=== PATIENT | male | born 1930 | race Caucasian/White ===

== ENCOUNTER 2017-10-03 12:15 | Emergency (ER) | payer OTHER, MEDICARE ==
[2017-10-03 12:43] VITALS: BP 141/62
--- NOTE | 2017-10-03 13:00 | EDM.PDOC ---
ED HPI GENERAL MEDICAL PROBLEM - General Chief Complaint: Respiratory Problem Stated Complaint: FROM [facility] Time Seen by Provider: 10/03/17 12:45 Source of Information: Reports: Patient, Provider (from the [facility]) History Limitations: Reports: No Limitations - History of Present Illness INITIAL COMMENTS - FREE TEXT/NARRATIVE: This 86 yo male patient was sent to the ED by the [facility] provider due to increased shortness of breath with a possible exacerbation of COPD. The patient reports he started to have a cough 2 days ago which has gotten worse. The patient reports he normally has shortness of breath, but it has been getting worse over the past couple of days. The patient reports he took a breathing treatment while at home which improved his breathing for about 4 hours. The patient reports that he normally has antibiotics and steroids when his breathing gets bad. 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) - Related Data Allergies Allergy/AdvReac Type Severity Reaction Status Date / Time Iodinated Contrast- Oral and Allergy Cannot Verified 10/03/17 12:17 IV Dye Remember [Iodinated Contrast Media - Oral and] Home Meds: Home Meds Albuterol Sulfate [Proair Respiclick] 90 mcg IH BID PRN 06/26/15 [History] Ascorbic Acid [Vitamin C] 500 mg PO DAILY 06/26/15 [History] Aspirin 81 mg PO DAILY 06/26/15 [History] Budesonide/Formoterol [Symbicort 160-4.5 MCG] 2 inh INH BID 06/26/15 [History] Furosemide 80 mg PO DAILY 06/26/15 [History] Simvastatin [Zocor] 20 mg PO BEDTIME 06/26/15 [History] Tiotropium [Spiriva HandiHaler] 1 inh INH DAILY 06/26/15 [History] Albuterol/Ipratropium [DuoNeb 3.0-0.5 MG/3 ML] 1 vial INH QID 08/26/15 [History] Ibuprofen 200 mg PO ASDIRECTED 05/22/16 [History] Loratadine 10 mg PO DAILY 05/22/16 [History] Multivitamin [Multivitamins] 1 each PO DAILY 05/22/16 [History] Prednisone [IJD: Prednisone] 10 mg PO DAILY #20 tab 05/27/16 [Rx] Doxycycline [Vibramycin] 1 tab PO BID 03/19/17 [History] Past Medical History HEENT History: Reports: Cataract, Hard of Hearing Cardiovascular History: Reports: Heart Failure, Hypertension Respiratory History: Reports: COPD, Other (See Below) Other Respiratory History: pleural effusion Musculoskeletal History: Reports: Other (See Below) Other Musculoskeletal History: adiposity Oncologic (Cancer) History: Reports: Malignant Melanoma Dermatologic History: Reports: Other (See Below) Other Dermatologic History: malignant melanoma - Past Surgical History HEENT Surgical History: Reports: Cataract Surgery, Other (See Below) Cardiovascular Surgical History: Reports: None GI Surgical History: Reports: None Social & Family History - Family History Family Medical History: Noncontributory - Tobacco Use Smoking Status *Q: Unknown Ever Smoked Years of Tobacco use: 55 Packs/Tins Daily: 1 Used Tobacco, but Quit: Yes Month/Year Tobacco Last Used: jul 1994 Second Hand Smoke Exposure: No - Caffeine Use Caffeine Use: Reports: Coffee - Recreational Drug Use Recreational Drug Use: No ED ROS GENERAL - Review of Systems Review Of Systems: ROS reveals no pertinent complaints other than HPI. ED EXAM, GENERAL - Physical Exam Exam: See Below Exam Limited By: No Limitations General Appearance: Alert, WD/WN, Moderate Distress Eye Exam: Bilateral Eye: EOMI, Normal Inspection, PERRL Ears: Normal External Exam, Normal Canal, Hearing Grossly Normal, Normal TMs Nose: Normal Inspection, Normal Mucosa, No Blood Throat/Mouth: Normal Inspection, Normal Lips, Normal Teeth, Normal Gums, Normal Oropharynx, Normal Voice, No Airway Compromise Head: Atraumatic, Normocephalic Neck: Normal Inspection, Supple, Non-Tender, Full Range of Motion Respiratory/Chest: Rhonchi (diffuse), Wheezing Cardiovascular: Normal Peripheral Pulses, Regular Rate, Rhythm, No Edema, No Gallop, No JVD, No Murmur, No Rub GI/Abdominal: Normal Bowel Sounds, Soft, Non-Tender, No Organomegaly, No Distention, No Abnormal Bruit, No Mass (Male) Exam: Deferred Rectal (Males) Exam: Deferred Back Exam: Normal Inspection, Full Range of Motion, NT Extremities: Normal Inspection, Normal Range of Motion, Non-Tender, Normal Capillary Refill, No Pedal Edema Neurological: Alert, Oriented, CN II-XII Intact, Normal Cognition, Normal Gait, Normal Reflexes, No Motor/Sensory Deficits Psychiatric: Normal Affect, Normal Mood Skin Exam: Warm, Dry, Intact, Normal Color, No Rash Lymphatic: No Adenopathy Course - Vital Signs Last Recorded V/S: Last Vital Signs Temp 36.1 C 10/03/17 12:42 Pulse 57 L 10/03/17 13:48 Resp 20 10/03/17 12:42 BP 141/62 H 10/03/17 12:42 Pulse Ox 100 10/03/17 13:48 - Orders/Labs/Meds Orders: Active Orders 24 hr Category Date Time Status EKG Documentation Completion [RC] URGENT Care 10/03/17 12:32 Active RT Aerosol Therapy [RC] ASDIRECTED Care 10/03/17 13:48 Active Labs: Laboratory Tests 10/03/17 10/03/17 Range/Units 12:41 12:41 WBC 10.4 H (5.0-10.0) 10^3/uL RBC 4.63 (4.6-6.2) 10^6/uL Hgb 14.1 D (14.0-18.0) g/dL Hct 44.2 (40.0-54.0) % MCV 95.5 D (80-100) fL MCH 30.5 (27.0-34.0) pg MCHC 31.9 L (33.0-35.0) g/dL Plt Count 201 (150-450) 10^3/uL Neut % (Auto) 63.5 (42.2-75.2) % Lymph % (Auto) 16.8 L (20.5-50.1) % [place] % (Auto) 8.6 H (2-8) % Eos % (Auto) 10.0 H (1.0-3.0) % Baso % (Auto) 1.1 H (0.0-1.0) % Sodium 138 (135-145) mmol/L Potassium 4.5 (3.6-5.0) mmol/L Chloride 100 L (101-111) mmol/L Carbon Dioxide 32.0 H (21.0-31.0) mmol/L Anion Gap 10.5 BUN 15 (7-18) mg/dL Creatinine 1.4 H (0.6-1.3) mg/dL Est Cr Clr Drug Dosing 34.17 mL/min Estimated GFR (MDRD) 48 BUN/Creatinine Ratio 10.71 Glucose 116 H (74-105) mg/dL Calcium 8.9 (8.4-10.2) mg/dl Total Bilirubin 0.6 (0.2-1.0) mg/dL AST 22 (10-42) IU/L ALT 15 (10-60) IU/L Alkaline Phosphatase 49 (42-121) IU/L Troponin I < 0.02 (0.00-0.02) ng/ml Total Protein 6.4 L (6.7-8.2) g/dl Albumin 3.6 (3.2-5.5) g/dl Globulin 2.8 Albumin/Globulin Ratio 1.29 Meds: Medications Discontinued Medications Generic Name Dose Route Start Last Admin Trade Name Freq PRN Reason Stop Dose Admin Albuterol/Ipratropium 3 ml 10/03/17 13:48 10/03/17 13:53 Duoneb 3.0-0.5 Mg/3 Ml NEB 10/03/17 13:49 3 ml ONETIME ONE Administration - Re-Assessments/Exams Free Text/Narrative Re-Assessment/Exam: 10/03/17 14:24 The patient reports he continues to be on antibiotics and steroids for treatment of Exacerbation of COPD. The patient reports he took steroids and antibiotics today, but the patient reports his cough has been getting worse. Departure - Departure Time of Disposition: 14:26 Disposition: Home, Self-Care 01 Condition: Fair Clinical Impression: COPD exacerbation - Discharge Information Instructions: Chronic Obstructive Pulmonary Disease Exacerbation, [id number] Forms: ED Department Discharge Care Plan Goals: The patient was encouraged to continue to take his antibiotics, steroids and regular medications as prescribed. The patient was given a script for Tessalon Pearles (100 mg) #30 to take 1 by mouth 3 times per day as needed. If the patient has any additional symptoms or concerns, the patient should follow-up with his primary care facility or return to the emergency department. - My Orders Last 24 Hours: My Active Orders 10/03/17 12:32 EKG Documentation Completion [RC] URGENT 10/03/17 13:48 RT Aerosol Therapy [RC] ASDIRECTED - Assessment/Plan Last 24 Hours: My Active Orders 10/03/17 12:32 EKG Documentation Completion [RC] URGENT 10/03/17 13:48 RT Aerosol Therapy [RC] ASDIRECTED
[2017-10-03 13:07] LABS: CHLORIDE,CL 100 mmol/L (101-111); SODIUM,NA 138 mmol/L (135-145)
[2017-10-03] MEDS ORDERED: Albuterol/Ipratropium 3.0-0.5 MG/3 ML Neb Soln NEB ONE (13:48)
== END 2017-10-03 14:38 | disposition home or self-care (01) ==
LOC: DL.ED 12:15
DX: J44.1 Chronic obstructive pulmonary disease with (acute) exacerbation (principal); Z91.041 Radiographic dye allergy status; Z79.899 Other long term (current) drug therapy; Z79.82 Long term (current) use of aspirin; Z87.891 Personal history of nicotine dependence
CPT/HCPCS: 36415; 71046; 80053; 84484; 85025; 93005; 93010; 94640; 99285

== ENCOUNTER 2018-10-08 11:29 | Inpatient (IN) | payer OTHER, MEDICARE ==
--- NOTE | 2018-10-08 11:46 | EDM.PDOC ---
ED HPI GENERAL MEDICAL PROBLEM - General Stated Complaint: UNKNOWN-AMBULANCE Time Seen by Provider: 10/08/18 11:45 Source of Information: Reports: [facility], [facility] History Limitations: Reports: No Limitations - History of Present Illness INITIAL COMMENTS - FREE TEXT/NARRATIVE: This 87 yo male patient [facility] to increased shortness of breath with a history of COPD. The patient reports he has noticed increased difficulties breathing over the past 2 days. The patient reports [facility] after some results were received. The patient reports he has not had a breathing treatment since yesterday. Onset Date: 10/07/18 Duration: Constant Location: Reports: Chest Quality: Reports: Other Severity: Moderate Improves with: Reports: None Worsens with: Reports: None Associated Symptoms: Reports: Shortness of Breath - Related Data Allergies Allergy/AdvReac Type Severity Reaction Status Date / Time Iodinated Contrast- Oral and Allergy Cannot Verified 10/08/18 11:38 IV Dye Remember [Iodinated Contrast Media - Oral and] Home Meds: Home Meds Albuterol Sulfate [Proair Respiclick] 90 mcg IH BID PRN 06/26/15 [History] Ascorbic Acid [Vitamin C] 500 mg PO DAILY 06/26/15 [History] Aspirin 81 mg PO DAILY 06/26/15 [History] Budesonide/Formoterol [Symbicort 160-4.5 MCG] 2 inh INH BID 06/26/15 [History] Furosemide 80 mg PO DAILY 06/26/15 [History] Simvastatin [Zocor] 20 mg PO BEDTIME 06/26/15 [History] Tiotropium [Spiriva HandiHaler] 1 inh INH DAILY 06/26/15 [History] Albuterol/Ipratropium [DuoNeb 3.0-0.5 MG/3 ML] 1 vial INH QID 08/26/15 [History] Ibuprofen 200 mg PO ASDIRECTED 05/22/16 [History] Loratadine 10 mg PO DAILY 05/22/16 [History] Multivitamin [Multivitamins] 1 each PO DAILY 05/22/16 [History] Prednisone [IJD: Prednisone] 10 mg PO DAILY #20 tab 05/27/16 [Rx] Doxycycline [Vibramycin] 1 tab PO BID 03/19/17 [History] Past Medical History HEENT History: Reports: Cataract, Hard of Hearing Cardiovascular History: Reports: Heart Failure, Hypertension Respiratory History: Reports: COPD, Other (See Below) Other Respiratory History: pleural effusion Musculoskeletal History: Reports: Other (See Below) Other Musculoskeletal History: adiposity Neurological History: Reports: None Psychiatric History: Reports: None Endocrine/Metabolic History: Reports: Diabetes, Type I, Diabetes, Type II Hematologic History: Reports: None Immunologic History: Reports: None Oncologic (Cancer) History: Reports: Malignant Melanoma Dermatologic History: Reports: Other (See Below) Other Dermatologic History: malignant melanoma - Infectious Disease History Infectious Disease History: Reports: None - Past Surgical History Head Surgeries/Procedures: Reports: None HEENT Surgical History: Reports: Cataract Surgery, Other (See Below) Cardiovascular Surgical History: Reports: None GI Surgical History: Reports: None Social & Family History - Family History Family Medical History: Noncontributory - Tobacco Use Smoking Status *Q: Unknown Ever Smoked - Caffeine Use Caffeine Use: Reports: None - Recreational Drug Use Recreational Drug Use: No ED ROS GENERAL - Review of Systems Review Of Systems: ROS reveals no pertinent complaints other than HPI. ED EXAM, GENERAL - Physical Exam Exam: See Below Exam Limited By: No Limitations General Appearance: Alert, WD/WN, Moderate Distress Eye Exam: Bilateral Eye: EOMI, Normal Inspection, PERRL Ears: Normal External Exam, Normal Canal, Hearing Grossly Normal, Normal TMs Nose: Normal Inspection, Normal Mucosa, No Blood Throat/Mouth: Normal Inspection, Normal Lips, Normal Teeth, Normal Gums, Normal Oropharynx, Normal Voice, No Airway Compromise Head: Atraumatic, Normocephalic Neck: Normal Inspection, Supple, Non-Tender, Full Range of Motion Respiratory/Chest: Decreased Breath Sounds, Rhonchi Cardiovascular: Normal Peripheral Pulses, Regular Rate, Rhythm, No Edema, No Gallop, No JVD, No Murmur, No Rub GI/Abdominal: Normal Bowel Sounds, Soft, Non-Tender, No Organomegaly, No Distention, No Abnormal Bruit, No Mass (Male) Exam: Deferred Rectal (Males) Exam: Deferred Back Exam: Normal Inspection, Full Range of Motion, NT Extremities: Pedal Edema Neurological: Alert, Oriented, CN II-XII Intact, Normal Cognition Psychiatric: Normal Affect, Normal Mood Skin Exam: Warm, Dry, Intact, Normal Color, No Rash Lymphatic: No Adenopathy Course - Vital Signs Last Recorded V/S: Last Vital Signs Temp 36.1 C 10/08/18 11:35 Pulse 80 10/08/18 11:35 Resp 20 10/08/18 11:35 BP 114/56 L 10/08/18 11:35 Pulse Ox 96 10/08/18 11:55 - Orders/Labs/Meds Orders: Active Orders 24 hr Category Date Time Status EKG Documentation Completion [RC] URGENT Care 10/08/18 11:33 Active EKG Documentation Completion [RC] URGENT Care 10/08/18 12:43 Active RT Aerosol Therapy [RC] ASDIRECTED Care 10/08/18 11:55 Active Chest 2V [CR] Urgent Exams 10/08/18 11:33 Stop Req CULTURE BLOOD [BC] Stat Lab 10/08/18 11:44 Received Azithromycin [Zithromax] 500 mg Med 10/08/18 13:05 Ordered Sodium Chloride 0.9% [Normal Saline] 250 ml IV ONETIME cefTRIAXone [Rocephin] 1 gm Med 10/08/18 13:05 Ordered Sodium Chloride 0.9% [Normal Saline] 50 ml IV ONETIME Medication Orders Azithromycin 500 mg/ Sodium (Chloride) 250 mls @ 250 mls/hr IV ONETIME ONE Stop: 10/08/18 14:04 Ceftriaxone Sodium 1 gm/ (Sodium Chloride) 50 mls @ 50 mls/hr IV ONETIME ONE Stop: 10/08/18 14:04 Labs: Laboratory Tests 10/08/18 10/08/18 10/08/18 Range/Units 11:44 11:44 11:44 WBC 15.8 H (5.0-10.0) 10^3/uL RBC 5.00 (4.6-6.2) 10^6/uL Hgb 14.5 (14.0-18.0) g/dL Hct 45.2 (40.0-54.0) % MCV 90.4 (80-100) fL MCH 29.0 (27.0-34.0) pg MCHC 32.1 L (33.0-35.0) g/dL Plt Count 218 (150-450) 10^3/uL Neut % (Auto) 79.3 H (42.2-75.2) % Lymph % (Auto) 10.1 L (20.5-50.1) % [place] % (Auto) 9.8 H (2-8) % Eos % (Auto) 0.4 L (1.0-3.0) % Baso % (Auto) 0.4 (0.0-1.0) % Sodium 137 (135-145) mmol/L Potassium 3.4 L (3.6-5.0) mmol/L Chloride 99 L (101-111) mmol/L Carbon Dioxide 24.0 (21.0-31.0) mmol/L Anion Gap 17.4 BUN 22 H (7-18) mg/dL Creatinine 1.3 (0.6-1.3) mg/dL Est Cr Clr Drug Dosing 36.14 mL/min Estimated GFR (MDRD) 52 BUN/Creatinine Ratio 16.92 Glucose 121 H (74-105) mg/dL Lactic Acid 1.5 (0.5-2.2) mmol/L Calcium 8.0 L (8.4-10.2) mg/dl Total Bilirubin 0.8 (0.2-1.0) mg/dL AST 19 (10-42) IU/L ALT 16 (10-60) IU/L Alkaline Phosphatase 52 (42-121) IU/L Troponin I < 0.02 (0.00-0.02) ng/ml B-Natriuretic Peptide 80 (0-100) pg/ml Total Protein 6.7 (6.7-8.2) g/dl Albumin 3.4 (3.2-5.5) g/dl Globulin 3.3 Albumin/Globulin Ratio 1.03 Meds: Medications Generic Name Dose Route Start Last Admin Trade Name Freq PRN Reason Stop Dose Admin Azithromycin 500 mg/ Sodium 250 mls @ 250 mls/hr 10/08/18 13:05 Chloride IV 10/08/18 14:04 ONETIME ONE Ceftriaxone Sodium 1 gm/ 50 mls @ 50 mls/hr 10/08/18 13:05 Sodium Chloride IV 10/08/18 14:04 ONETIME ONE Discontinued Medications Generic Name Dose Route Start Last Admin Trade Name Freq PRN Reason Stop Dose Admin Albuterol/Ipratropium 3 ml 10/08/18 11:55 10/08/18 12:18 Duoneb 3.0-0.5 Mg/3 Ml NEB 10/08/18 11:56 3 ml ONETIME ONE Administration Diltiazem HCl 10 mg 10/08/18 13:05 Diltiazem IVPUSH 10/08/18 13:06 ONETIME ONE Departure - Departure Time of Disposition: 13:07 Disposition: Admitted As Inpatient 68 Condition: Fair Clinical Impression: Atrial fibrillation with RVR Pneumonia Qualifiers: Pneumonia type: due to unspecified organism Laterality: right Lung location: lower lobe of lung Qualified Code(s): J18.1 - Lobar pneumonia, unspecified organism - Discharge Information *PRESCRIPTION DRUG MONITORING PROGRAM REVIEWED*: Not Applicable *COPY OF PRESCRIPTION DRUG MONITORING REPORT IN PATIENT FARRUKH: Not Applicable Care Plan Goals: Discussed the patient's history, examination, lab, EKG, repeat EKG and x-ray results with Dr. Tejada. Dr. Tejada accepted the patient for continued evaluation and further management as an inpatient at [facility]. The patient was given an IV dose of Cardizem (10 mg), IV Rocephin and IV Azithromycin while in the ED. - My Orders Last 24 Hours: My Active Orders 10/08/18 11:33 EKG Documentation Completion [RC] URGENT Chest 2V [CR] Urgent 10/08/18 11:44 CULTURE BLOOD [BC] Stat 10/08/18 11:55 RT Aerosol Therapy [RC] ASDIRECTED 10/08/18 12:43 EKG Documentation Completion [RC] URGENT 10/08/18 13:05 Azithromycin [Zithromax] 500 mg Sodium Chloride 0.9% [Normal Saline] 250 ml IV ONETIME cefTRIAXone [Rocephin] 1 gm Sodium Chloride 0.9% [Normal Saline] 50 ml IV ONETIME - Assessment/Plan Last 24 Hours: My Active Orders 10/08/18 11:33 EKG Documentation Completion [RC] URGENT Chest 2V [CR] Urgent 10/08/18 11:44 CULTURE BLOOD [BC] Stat 10/08/18 11:55 RT Aerosol Therapy [RC] ASDIRECTED 10/08/18 12:43 EKG Documentation Completion [RC] URGENT 10/08/18 13:05 Azithromycin [Zithromax] 500 mg Sodium Chloride 0.9% [Normal Saline] 250 ml IV ONETIME cefTRIAXone [Rocephin] 1 gm Sodium Chloride 0.9% [Normal Saline] 50 ml IV ONETIME
[2018-10-08] MEDS ORDERED: Albuterol/Ipratropium 3.0-0.5 MG/3 ML Neb Soln NEB ONE (11:55)
[2018-10-08 12:12] LABS: ANION GAP 17.4; CHLORIDE,CL 99 mmol/L (101-111); SODIUM,NA 137 mmol/L (135-145)
[2018-10-08] MEDS ORDERED: Diltiazem 25 MG/5 ML SDV IVPUSH ONE ×2 (13:05→19:52)
[2018-10-08] MEDS ORDERED: cefTRIAXone 1 GM in Sodium Chloride 0.9% 50 ML IV ONE (13:05)
[2018-10-08] MEDS ORDERED: Azithromycin 500 MG in Sodium Chloride 0.9% 250 ML IV ONE (13:05)
[2018-10-08] MEDS ORDERED: Acetaminophen 325 MG Tab PO PRN (15:21)
[2018-10-08] MEDS ORDERED: Magnesium Hydroxide 400 MG/5 ML Susp 30 ML Cup PO PRN (15:21)
[2018-10-08] MEDS ORDERED: Docusate Sodium 100 MG Cap PO PRN (15:21)
[2018-10-08] MEDS ORDERED: Ondansetron 4 MG Tab.DIS PO PRN (15:21)
[2018-10-08] MEDS ORDERED: Ondansetron 4 MG/2 ML SDV IVPUSH PRN (15:21)
[2018-10-08] MEDS ORDERED: Non-Formulary Medication 1 Each (Docusate Sodium [Colace] 50 MG) PO PRN (15:29)
[2018-10-08] MEDS ORDERED: Albuterol 6.7 GM Inhaler INH PRN (15:29)
[2018-10-08] MEDS ORDERED: IPRATROPIUM PRN (15:29)
[2018-10-08] MEDS ORDERED: 50% Dextrose in Water 50 ML Syringe IVPUSH PRN (15:59)
[2018-10-08] MEDS ORDERED: Albuterol/Ipratropium 3.0-0.5 MG/3 ML Neb Soln INH PRN ×2 (16:00→16:30)
[2018-10-08] MEDS ORDERED: Insulin Lispro 100 Units/ML 3 ML Vial SUBCUT SCH (17:00)
[2018-10-08] MEDS ORDERED: CROMOLYN SODIUM OP SCH (17:00)
[2018-10-08] MEDS: Furosemide 40 MG/4 ML VIAL IVPUSH SCH (17:12)
[2018-10-08] MEDS: Diltiazem 120 MG Cap.CD PO SCH (17:13)
[2018-10-08] MEDS: Budesonide 0.5 MG/2 ML Neb Susp NEB SCH (18:03)
[2018-10-08] MEDS: Diltiazem 100 MG in Sodium Chloride 0.9% 100 ML IV SCH (18:45)
[2018-10-08] MEDS ORDERED: Simvastatin 40 MG Tab PO SCH (21:00)
[2018-10-08] MEDS ORDERED: Melatonin 3 MG Tab PO SCH (21:00)
[2018-10-08] MEDS ORDERED: diphenhydrAMINE 25 MG Tab PO PRN (21:00)
[2018-10-08] MEDS: Insulin Glarg,Human.Rec.Analog 100 UNIT/ML ML SUBCUT SCH (21:05)
[2018-10-08] MEDS: Enoxaparin 40 MG/0.4 ML Syringe SUBCUT SCH (21:07)
[2018-10-08] MEDS: methylPREDNISolone Sodium Succinate 40 MG/1 ML SDV IVPUSH SCH (22:07)
--- NOTE | 2018-10-08 22:07 | HP ---
CHIEF COMPLAINT: Increasing shortness of breath. HISTORY OF PRESENTING ILLNESS: Mr. Yono Soares is an 87-year-old male with a medical history significant for hypertension, hyperlipidemia, type 2 diabetes mellitus, chronic obstructive pulmonary disease, history of emphysema, history of tobacco use in the remote past and quit smoking for the last several years, history of chronic congestive heart failure with diastolic dysfunction, presented to the ER with complaints of increasing shortness of breath. He was initially evaluated in the clinic and was called back to the ER as he was noted to have abnormal labs. At this time, the patient claims that he has been having shortness of breath for the last 1 week to 10 days, which has been progressively getting worse. He grades the shortness of breath as 7 to 8/10 in intensity, which gets aggravated on ambulation and exertion, relieved with rest. Not associated with any chest pain. Complains of having cough with sputum production which is brownish yellow in color. Denied any fevers or chills at home. No complaints of abdominal pain. No complaints of nausea, vomiting, or diarrhea in the last few days. He also noticed some 2-pillow orthopnea in the last few days. The patient denied any history of chest pains on exertion in the past, no history of dyspnea on exertion in the past except for this last 10 days. The patient denied any history of hematemesis, hematochezia, or melenic stools. Normal bowel and bladder habits otherwise. REVIEW OF SYSTEMS: A complete review of system including skin, ear, nose, and throat, cardiovascular system, respiratory system, gastrointestinal system, genitourinary system, hematology, oncology, neurology, allergy, immunology, constitutional were all evaluated and were negative except for the above-said notes. PAST MEDICAL HISTORY: Significant for: 1. Hypertension. 2. Hyperlipidemia. 3. Type 2 diabetes mellitus. 4. Chronic congestive heart failure with diastolic dysfunction. 5. COPD. 6. History of alcohol use in the remote past. 7. History of tobacco use in the remote past. PAST SURGICAL HISTORY: Significant for cyst removal and cataract surgery. FAMILY HISTORY: Significant for diabetes in his brothers and sisters. Both the parents diseased. SOCIAL HISTORY: Former smoker. History of tobacco use in the past, quit smoking many years back. History of alcohol use in the past, quit drinking alcohol many years back. ALLERGIES: Noted to have allergies to iodinated study contrast dyes. HOME MEDICATIONS: 1. Metformin 500 mg daily. 2. Guaifenesin 200 mg 3 times a day. 3. Benadryl 25 mg at bedtime as needed. 4. Spiriva 2 puffs inhalation daily. 5. Zocor 20 mg at bedtime. 6. Prednisone 5 mg daily. 7. Multivitamin 1 tablet daily. 8. Melatonin 6 mg at night. 9. Atrovent nebulizer inhalation twice a day as needed. 10.Lasix 40 mg daily. 11.Aspirin 81 mg daily. 12.Symbicort 2-puff inhalation twice a day. 13.Vitamin C 500 mg daily. 14.DuoNeb inhalation every 4 hours as needed. PHYSICAL EXAMINATION: VITAL SIGNS: Temperature 97, pulse of 76, blood pressure 114/56, respiratory rate of 20, and saturating at 96% on 2 L of oxygen. General Appearance: The patient is well oriented to time, place, and person. Follows commands spontaneously. Cardiovascular System: S1, S2 heard with normal intensity. No gallops. Respiratory System: Bilateral wheeze and crepitations noted. Abdomen: Soft. Bowel sounds positive. Nontender. No rigidity. Extremities: 2+ pitting edema noted, bilateral lower extremities. Neurologic: No gross focal neurological deficit. LABORATORY DATA: WBC 15.8, hemoglobin 14.5, hematocrit 45.2, platelet count 218. Sodium 137, potassium 3.4, chloride 99, bicarb 24, BUN 17, creatinine 1.3, glucose 121, AST 19, ALT 16, alkaline phosphatase 52. Troponin less than 0.02. B-natriuretic peptide 80. Chest x-ray done at the clinic shows evidence of pulmonary venous congestion along with a possible pneumonia. ASSESSMENT: 1. Pneumonia. 2. Acute chronic obstructive pulmonary disease exacerbation. 3. Acute on chronic congestive heart failure with diastolic dysfunction. 4. Hypertension. 5. Hyperlipidemia. 6. Type 2 diabetes mellitus. 7. Obesity. PLAN: 1. Pneumonia. The patient noted to have cough with sputum which is brownish yellow in color, which has been going on for the last few days. We will obtain sputum cultures and blood cultures. We will start him on antibiotics ceftriaxone and Zithromax, and we will closely follow. 2. Acute COPD exacerbation. He is noted to have wheeze and crepitations bilaterally. We will have him on nebulizer with DuoNeb and Pulmicort nebulizer. We will start him on IV methylprednisone. We will encourage the patient to use incentive spirometer and flutter valve for better pulmonary toileting. 3. Acute on chronic respiratory failure. The patient noted to be on nasal cannula oxygen. Continue the same. Try to maintain saturations around 95%. 4. Acute CHF exacerbation. The patient was noted to have diastolic dysfunction. We do not have any recent echocardiogram, so we will order for an echocardiogram at this time. We will have him on Lasix 40 mg IV q.12 hourly. We will get a BNP at this time. Closely monitor input, output, and daily weights. 5. Hypertension. His blood pressure seems to be in acceptable range. Try to avoid any hypotensive episodes. Maintain euvolemic status. 6. Type 2 diabetes mellitus. Patient is on metformin. We will hold the metformin while in the hospital. Check his fingersticks with each meals. Since we are going to put him on steroids, his blood sugars will be uncontrolled, so we will have him on Lantus and Humalog as needed for sliding scale. Closely follow. 7. DVT prophylaxis. We will have him on Lovenox for DVT prophylaxis. 8. Atrial fibrillation. The patient was noted to be in atrial fibrillation with rapid ventricular response. While in the ER, he received IV Cardizem 10 mg bolus. Given his hypertension, diabetes, and age, his CHADS-Vasc score is greater than 2, an indication for anticoagulation at this time. After having detailed discussion with the patient, the patient would like to hold off any anticoagulation for now. We will re-visit the patient regarding anticoagulation. As he is at high risk for cerebrovascular accident, it is important to have a secondary prevention at this time. We will continue with aspirin for now. 9. Code status, the patient wants to be DNR/DNI. 10.Discussed with Lucio Antonio, ER staff, regarding the plan of care. Reviewed the labs and medications. Reviewed the old charts. [facility] /[id number]
[2018-10-08] MEDS ORDERED: Albuterol/Ipratropium 3.0-0.5 MG/3 ML Neb Soln NEB PRN (23:01)
[2018-10-09] MEDS ORDERED: Sodium Chloride 0.9% 250 ML IV SCH (01:30)
[2018-10-09] MEDS: Digoxin 500 MCG/2 ML Amp IVPUSH SCH ×2 (01:31→07:35)
[2018-10-09] MEDS: methylPREDNISolone Sodium Succinate 40 MG/1 ML SDV IVPUSH SCH ×2 (05:56→15:25)
[2018-10-09 06:27] LABS: ANION GAP 15.3
[2018-10-09] MEDS: Albuterol/Ipratropium 3.0-0.5 MG/3 ML Neb Soln NEB SCH (06:58)
[2018-10-09] MEDS: Furosemide 40 MG/4 ML VIAL IVPUSH SCH ×2 (07:35→15:25)
[2018-10-09] MEDS: Budesonide 0.5 MG/2 ML Neb Susp NEB SCH (07:59)
[2018-10-09] MEDS: Enoxaparin 40 MG/0.4 ML Syringe SUBCUT SCH (08:37)
[2018-10-09] MEDS: Diltiazem 120 MG Cap.CD PO SCH (08:38)
[2018-10-09] MEDS: Insulin Glarg,Human.Rec.Analog 100 UNIT/ML ML SUBCUT SCH (08:43)
[2018-10-09] MEDS ORDERED: Finasteride 5 MG Tab PO SCH (09:00)
[2018-10-09] MEDS ORDERED: Multivitamins,Therapeutic Tab PO SCH (09:00)
[2018-10-09] MEDS ORDERED: Loratadine 10 MG Tab PO SCH (09:00)
[2018-10-09] MEDS ORDERED: Aspirin 81 MG Tab.Chew PO SCH (09:00)
[2018-10-09] MEDS ORDERED: Enoxaparin 40 MG/0.4 ML Syringe SUBCUT SCH (09:00)
[2018-10-09] MEDS ORDERED: Tiotropium Inhaler 18 MCG Inhalation Powder Cap Kit of 5 INH SCH (09:00)
[2018-10-09] MEDS ORDERED: Aspirin 81 MG Tab.EC PO SCH (09:00)
[2018-10-09] MEDS ORDERED: Ascorbic Acid 500 MG Tab PO SCH (09:00)
[2018-10-09] MEDS ORDERED: cefTRIAXone 1 GM in Sodium Chloride 0.9% 50 ML IV SCH (12:00)
[2018-10-09] MEDS ORDERED: Azithromycin 500 MG in Sodium Chloride 0.9% 250 ML IV SCH (13:00)
[2018-10-09] MEDS: Diltiazem 100 MG in Sodium Chloride 0.9% 100 ML IV SCH (14:27)
[2018-10-09 15:43] VITALS: BP 133/57
--- NOTE | 2018-10-09 18:33 | DISCH ---
Discharged to [facility] for continued cares. ADMITTING DIAGNOSES: 1. Atrial fibrillation with rapid ventricular response. 2. Acute on chronic congestive heart failure. 3. Acute chronic obstructive pulmonary disease exacerbation. 4. Acute on chronic respiratory failure with hypoxia. 5. Pneumonia. DISCHARGE DIAGNOSES: 1. Pneumonia, on currently IV antibiotics. 2. Acute chronic obstructive pulmonary disease exacerbation, improved with nebulizer treatment and IV methylprednisolone. 3. Acute on chronic congestive heart failure, improved with IV Lasix, most probably diastolic dysfunction with ejection fraction of 50% to 55% as per echocardiogram. 4. Acute on chronic hypoxic respiratory failure, stable on nasal cannula oxygen. 5. Hypertension. HISTORY OF PRESENT ILLNESS: Mr. Rodger Nettles is an 87-year-old male with a medical history significant for hypertension, hyperlipidemia, type 2 diabetes mellitus, chronic obstructive pulmonary disease with emphysema, tobacco use, presented to the ER with complaints of increasing shortness of breath and was noted to be in acute congestive heart failure exacerbation with atrial fibrillation with rapid ventricular response, acute COPD exacerbation, and underlying pneumonia. The patient was started on IV antibiotics as well as nebulizer treatment and IV methylprednisone and was started on IV Cardizem drip. Overnight, the patient continues to be in atrial fibrillation with rapid ventricular response. He received IV digoxin, after which his rate is well controlled. His blood pressure is much improved. The patient is a [facility] patient, so the patient is being transferred to [facility] for continued cares and for further monitoring and dose adjustment of his medications. He remained hemodynamically stable on this admission. DISCHARGE MEDICATIONS: Include: 1. Tylenol 650 every 4 hours as needed for pain. 2. DuoNeb 3 mL nebulizer every 6 hours. 3. Vitamin C 500 mg daily. 4. Aspirin 81 mg daily. 5. Ceftriaxone 1 g IV daily. 6. Zithromax 500 mg IV daily. 7. Pulmicort 0.5 mg nebulizer twice a day. 8. Diltiazem 120 mg oral daily. 9. Diphenhydramine 25 mg at bedtime as needed. 10.Docusate sodium 100 mg twice a day as needed for constipation. 11.Proscar 5 mg daily. 12.Lasix 40 mg IV q.12 hourly. 13.Guaifenesin 200 mg 3 times a day. 14.Lantus 15 units subcutaneous daily. 15.Milk of magnesia every 12 hours as needed. 16.Melatonin 6 mg at bedtime. 17.IV methylprednisolone 60 mg IV q.8 hourly. 18.Simvastatin 20 mg at bedtime. 19.Spiriva 18 mcg inhalation daily. PHYSICAL EXAMINATION: On the day of discharge: Vital Signs: Temperature of 97.8, pulse of 65, blood pressure of 126/61, respiratory rate of 20, saturating 98% on 3 L of oxygen. General Appearance: The patient is well oriented to time, place, and person. Follows commands spontaneously. Cardiovascular System: S1 and S2 heard with normal intensity. No gallops. Respiratory System: Bilateral wheeze with minimal crepitations at the bases. Abdomen: Soft. Bowel sounds positive. Nontender. No rigidity. Extremities: Edema noted in bilateral lower extremities, 2+. LABORATORY DATA: 2D echocardiogram done on this admission shows an ejection fraction of 50% to 55%. Right ventricle is not well visualized. Mild mitral regurgitation. Doppler findings do not suggest pulmonary hypertension. Mild tricuspid regurgitation. Sclerotic aortic valve. CONDITION ON ADMISSION: Poor. CONDITION ON DISCHARGE: Stable. DISPOSITION: Discharged to [facility] for continued cares. ACTIVITY: As tolerated. DIET: Cardiac healthy diet with consistent carbohydrate diet. Spent over 35 minutes of time in evaluating and treating this patient and making discharge plan. [facility] /[id number]
[2018-10-09] MEDS ORDERED: Albuterol/Ipratropium 3.0-0.5 MG/3 ML Neb Soln NEB SCH (21:00)
== END 2018-10-09 16:16 | DRG 291 ==
LOC: DL.ED 11:29 → UNDOADMIN 14:16 → DL.MS 14:16
PROVIDERS: ADMIT Internal Medicine; ATTEND Internal Medicine
DX: I11.0 Hypertensive heart disease with heart failure (principal); J18.1 Lobar pneumonia, unspecified organism; J96.01 Acute respiratory failure with hypoxia; J44.1 Chronic obstructive pulmonary disease with (acute) exacerbation; J44.0 Chronic obstructive pulmonary disease with (acute) lower respiratory infection; I50.33 Acute on chronic diastolic (congestive) heart failure; Z66 Do not resuscitate; E78.5 Hyperlipidemia, unspecified; E11.9 Type 2 diabetes mellitus without complications; I48.91 Unspecified atrial fibrillation; H91.90 Unspecified hearing loss, unspecified ear; E66.9 Obesity, unspecified; Z91.041 Radiographic dye allergy status; Z79.52 Long term (current) use of systemic steroids; Z98.49 Cataract extraction status, unspecified eye; Z87.891 Personal history of nicotine dependence; Z79.84 Long term (current) use of oral hypoglycemic drugs; Z79.82 Long term (current) use of aspirin; Z79.899 Other long term (current) drug therapy; Z85.820 Personal history of malignant melanoma of skin; Z68.33 Body mass index [BMI] 33.0-33.9, adult
CPT/HCPCS: 36415; 80048; 80053; 82962; 83605; 83735; 83880; 84100; 84484; 85025; 85027; 87040; 87070; 87077; 87186; 87205; 93005; 93306; 94640; 96365; 96375; 99285-25; A9270-GY; J0456; J0696; J1160; J1650; J1815-GY; J1940; J2920; J3490; J7050; J7620-GY

== ENCOUNTER 2019-02-13 09:36 | Emergency (ER) | payer MEDICARE, MEDICAID ==
[2019-02-13 09:44] VITALS: BP 124/52
[2019-02-13] MEDS ORDERED: Diltiazem 25 MG/5 ML SDV IVPUSH ONE (10:03)
[2019-02-13 10:11] LABS: ANION GAP 16.1
[2019-02-13] MEDS ORDERED: cefTRIAXone 1 GM in Sodium Chloride 0.9% 50 ML IV ONE (10:42)
[2019-02-13] MEDS ORDERED: Azithromycin 500 MG in Sodium Chloride 0.9% 250 ML IV ONE (11:02)
--- NOTE | 2019-02-13 11:10 | EDM.PDOC ---
Scribed by Iraida Collazo 02/13/19 0709 for Lucio Antonio PA ED HPI GENERAL MEDICAL PROBLEM - General Chief Complaint: Chest Pain Stated Complaint: AMBULANCE Time Seen by Provider: 02/13/19 09:35 Source of Information: Reports: Patient, EMS, EMS Notes Reviewed, RN, RN Notes Reviewed History Limitations: Reports: No Limitations - History of Present Illness INITIAL COMMENTS - FREE TEXT/NARRATIVE: Patient presents to ER by [facility] with increased shortness of breath and heart palpitations this morning. This morning after breakfast he noticed increased heart rate and increased shortness of breath. He has little shortness of breath right now. Onset: Today Duration: Constant Location: Reports: Chest Quality: Reports: Ache Severity: Moderate Improves with: Reports: None Worsens with: Reports: None Associated Symptoms: Reports: No Other Symptoms - Related Data Allergies Allergy/AdvReac Type Severity Reaction Status Date / Time Iodinated Contrast Media Allergy Cannot Verified 02/13/19 09:51 [Iodinated Contrast Media - Remember Oral and] Home Meds: Home Meds Ascorbic Acid [Vitamin C] 500 mg PO DAILY 06/26/15 [History] Budesonide/Formoterol [Symbicort 160-4.5 MCG] 2 inh INH BID 06/26/15 [History] Simvastatin [Zocor] 10 mg PO BEDTIME 06/26/15 [History] Albuterol/Ipratropium [DuoNeb 3.0-0.5 MG/3 ML] 1 vial INH QID 08/26/15 [History] Loratadine 10 mg PO DAILY 05/22/16 [History] Multivitamin [Multivitamins] 1 each PO DAILY 05/22/16 [History] Docusate Sodium [Colace] 50 mg PO BID PRN 10/08/18 [History] Finasteride 5 mg PO DAILY 10/08/18 [History] Melatonin [Melatin] 6 mg PO QPM 10/08/18 [History] guaiFENesin [Guaifenesin] 200 mg PO TID 10/08/18 [History] metFORMIN [Glucophage] 500 mg PO DAILY 10/08/18 [History] Acetaminophen [Tylenol] 650 mg PO Q4HR PRN tablet 10/09/18 [Rx] Albuterol/Ipratropium [DuoNeb 3.0-0.5 MG/3 ML] 3 ml NEB Q6HRRT PRN neb [Rx] Diltiazem [Cardizem CD] 120 mg PO DAILY cap.cd 10/09/18 [Rx] Apixaban [Eliquis] 2.5 mg PO BID 02/13/19 [History] Ferrous Sulfate [Ferosul] 325 mg PO TID 02/13/19 [History] Furosemide [Lasix] 80 mg PO BID 02/13/19 [History] Metoprolol Tartrate 12.5 mg PO BID 02/13/19 [History] Olopatadine HCl 2.5 ml OP PRN 02/13/19 [History] Zolpidem Tartrate [Ambien] 5 mg PO BEDTIME 02/13/19 [History] methylPREDNISolone [Methylprednisolone] 4 mg PO DAILY 02/13/19 [History] traZODone HCl [Trazodone HCl] 50 mg PO PRN 02/13/19 [History] Past Medical History HEENT History: Reports: Cataract, Hard of Hearing Cardiovascular History: Reports: Heart Failure, Hypertension Respiratory History: Reports: COPD, Other (See Below) Other Respiratory History: pleural effusion Gastrointestinal History: Reports: Colon Polyp Musculoskeletal History: Reports: Other (See Below) Other Musculoskeletal History: adiposity Neurological History: Reports: None Psychiatric History: Reports: None Endocrine/Metabolic History: Reports: Diabetes, Type I, Diabetes, Type II, Obesity/BMI 30+ Hematologic History: Reports: None Immunologic History: Reports: None Oncologic (Cancer) History: Reports: Malignant Melanoma Dermatologic History: Reports: Other (See Below) Other Dermatologic History: malignant melanoma - Infectious Disease History Infectious Disease History: Reports: Measles, Mumps - Past Surgical History Head Surgeries/Procedures: Reports: None HEENT Surgical History: Reports: Cataract Surgery, Other (See Below) Cardiovascular Surgical History: Reports: None GI Surgical History: Reports: Colonoscopy Social & Family History - Family History Family Medical History: Noncontributory - Caffeine Use Caffeine Use: Reports: Coffee ED ROS GENERAL - Review of Systems Review Of Systems: ROS reveals no pertinent complaints other than HPI. ED EXAM, GENERAL - Physical Exam Exam: See Below Exam Limited By: No Limitations General Appearance: Alert, WD/WN, No Apparent Distress Eye Exam: Bilateral Eye: EOMI, Normal Inspection, PERRL Ears: Normal External Exam, Normal Canal, Hearing Grossly Normal, Normal TMs Nose: Normal Inspection, Normal Mucosa, No Blood Throat/Mouth: Normal Inspection, Normal Lips, Normal Teeth, Normal Gums, Normal Oropharynx, Normal Voice, No Airway Compromise Head: Atraumatic, Normocephalic Neck: Normal Inspection, Supple, Non-Tender, Full Range of Motion Respiratory/Chest: Rhonchi (diffuse), Other (decreased lung sounds) Cardiovascular: Normal Peripheral Pulses, Regular Rate, Rhythm, No Edema, No Gallop, No JVD, No Murmur, No Rub GI/Abdominal: Other (obese) (Male) Exam: Deferred Rectal (Males) Exam: Deferred Back Exam: Normal Inspection, Full Range of Motion, NT Extremities: Normal Inspection, Normal Range of Motion, Non-Tender, Normal Capillary Refill, No Pedal Edema Neurological: Alert, Oriented, CN II-XII Intact, Normal Cognition, Normal Gait, Normal Reflexes, No Motor/Sensory Deficits Psychiatric: Normal Affect, Normal Mood Skin Exam: Warm, Dry, Intact, Normal Color, No Rash Lymphatic: No Adenopathy Course - Vital Signs Last Recorded V/S: Last Vital Signs Temp 36.3 C 02/13/19 09:41 Pulse 57 L 02/13/19 09:41 Resp 20 02/13/19 09:41 BP 124/52 L 02/13/19 09:41 Pulse Ox 99 02/13/19 09:41 - Orders/Labs/Meds Orders: Active Orders 24 hr Category Date Time Status EKG Documentation Completion [RC] URGENT Care 02/13/19 09:33 Active Chest 1V Frontal [CR] Urgent Exams 02/13/19 09:34 Taken CULTURE BLOOD [BC] Stat Lab 02/13/19 09:42 Received CULTURE BLOOD [BC] Stat Lab 02/13/19 10:38 Ordered Azithromycin [Zithromax] 500 mg Med 02/13/19 11:02 Ordered Sodium Chloride 0.9% [Normal Saline] 250 ml IV ONETIME cefTRIAXone [Rocephin] 1 gm Med 02/13/19 10:42 Ordered Sodium Chloride 0.9% [Normal Saline] 50 ml IV ONETIME Medication Orders Ceftriaxone Sodium 1 gm/ (Sodium Chloride) 50 mls @ 50 mls/hr IV ONETIME ONE Stop: 02/13/19 11:41 Azithromycin 500 mg/ Sodium (Chloride) 250 mls @ 250 mls/hr IV ONETIME ONE Stop: 02/13/19 12:01 Labs: Laboratory Tests 02/13/19 02/13/19 02/13/19 Range/Units 09:42 09:42 09:42 WBC 15.9 H (5.0-10.0) 10^3/uL RBC 4.68 (4.6-6.2) 10^6/uL Hgb 13.6 L (14.0-18.0) g/dL Hct 44.1 (40.0-54.0) % MCV 94.2 (80-100) fL MCH 29.1 (27.0-34.0) pg MCHC 30.8 L (33.0-35.0) g/dL Plt Count 281 (150-450) 10^3/uL Neut % (Auto) 80.7 H (42.2-75.2) % Lymph % (Auto) 12.5 L (20.5-50.1) % Alfalfa % (Auto) 5.9 (2-8) % Eos % (Auto) 0.6 L (1.0-3.0) % Baso % (Auto) 0.3 (0.0-1.0) % Add Manual Diff Yes Neutrophils % (Manual) 73 (42-75) % Band Neutrophils % 7 % Lymphocytes % (Manual) 14 L (20-50) % Monocytes % (Manual) 6 (2-8) % Sodium 141 (135-145) mmol/L Potassium 4.1 (3.6-5.0) mmol/L Chloride 97 L (101-111) mmol/L Carbon Dioxide 32.0 H (21.0-31.0) mmol/L Anion Gap 16.1 BUN 32 H (7-18) mg/dL Creatinine 1.5 H (0.6-1.3) mg/dL Est Cr Clr Drug Dosing 30.75 mL/min Estimated GFR (MDRD) 44 BUN/Creatinine Ratio 21.33 Glucose 167 H (74-105) mg/dL Lactic Acid 2.4 H (0.5-2.2) mmol/L Calcium 9.0 (8.4-10.2) mg/dl Total Bilirubin 0.6 (0.2-1.0) mg/dL AST 27 (10-42) IU/L ALT 27 (10-60) IU/L Alkaline Phosphatase 51 (42-121) IU/L Troponin I 0.02 (0.00-0.02) ng/ml B-Natriuretic Peptide 143 H (0-100) pg/ml Total Protein 6.6 L (6.7-8.2) g/dl Albumin 3.7 (3.2-5.5) g/dl Globulin 2.9 Albumin/Globulin Ratio 1.28 Urine Color (YELLOW) Urine Appearance (CLEAR) Urine pH (5.0-9.0) Ur Specific [place] (1.005-1.030) Urine Protein (NEGATIVE) Urine Glucose (UA) (NEGATIVE) Urine Ketones (NEGATIVE) Urine Occult Blood (NEGATIVE) Urine Nitrite (NEGATIVE) Urine Bilirubin (NEGATIVE) Urine Urobilinogen (0.2-1.0) mg/dL Ur Leukocyte Esterase (NEGATIVE) Urine RBC /HPF Urine WBC (0-5/HPF) /HPF Ur Epithelial Cells (NOT SEEN) /HPF Urine Bacteria (0-FEW/HPF) /HPF Hyaline Casts (NOT SEEN) /LPF 02/13/19 Range/Units 10:10 WBC (5.0-10.0) 10^3/uL RBC (4.6-6.2) 10^6/uL Hgb (14.0-18.0) g/dL Hct (40.0-54.0) % MCV (80-100) fL MCH (27.0-34.0) pg MCHC (33.0-35.0) g/dL Plt Count (150-450) 10^3/uL Neut % (Auto) (42.2-75.2) % Lymph % (Auto) (20.5-50.1) % Alfalfa % (Auto) (2-8) % Eos % (Auto) (1.0-3.0) % Baso % (Auto) (0.0-1.0) % Add Manual Diff Neutrophils % (Manual) (42-75) % Band Neutrophils % % Lymphocytes % (Manual) (20-50) % Monocytes % (Manual) (2-8) % Sodium (135-145) mmol/L Potassium (3.6-5.0) mmol/L Chloride (101-111) mmol/L Carbon Dioxide (21.0-31.0) mmol/L Anion Gap BUN (7-18) mg/dL Creatinine (0.6-1.3) mg/dL Est Cr Clr Drug Dosing mL/min Estimated GFR (MDRD) BUN/Creatinine Ratio Glucose (74-105) mg/dL Lactic Acid (0.5-2.2) mmol/L Calcium (8.4-10.2) mg/dl Total Bilirubin (0.2-1.0) mg/dL AST (10-42) IU/L ALT (10-60) IU/L Alkaline Phosphatase (42-121) IU/L Troponin I (0.00-0.02) ng/ml B-Natriuretic Peptide (0-100) pg/ml Total Protein (6.7-8.2) g/dl Albumin (3.2-5.5) g/dl Globulin Albumin/Globulin Ratio Urine Color Yellow (YELLOW) Urine Appearance Clear (CLEAR) Urine pH 7.0 (5.0-9.0) Ur Specific [place] 1.020 (1.005-1.030) Urine Protein Negative (NEGATIVE) Urine Glucose (UA) Negative (NEGATIVE) Urine Ketones Negative (NEGATIVE) Urine Occult Blood Trace-intact H (NEGATIVE) Urine Nitrite Negative (NEGATIVE) Urine Bilirubin Negative (NEGATIVE) Urine Urobilinogen 0.2 (0.2-1.0) mg/dL Ur Leukocyte Esterase Negative (NEGATIVE) Urine RBC 0-5 /HPF Urine WBC Not seen (0-5/HPF) /HPF Ur Epithelial Cells Rare (NOT SEEN) /HPF Urine Bacteria Rare (0-FEW/HPF) /HPF Hyaline Casts Rare H (NOT SEEN) /LPF Meds: Medications Generic Name Dose Route Start Last Admin Trade Name Freq PRN Reason Stop Dose Admin Ceftriaxone Sodium 1 gm/ 50 mls @ 50 mls/hr 02/13/19 10:42 Sodium Chloride IV 02/13/19 11:41 ONETIME ONE Azithromycin 500 mg/ Sodium 250 mls @ 250 mls/hr 02/13/19 11:02 Chloride IV 02/13/19 12:01 ONETIME ONE Discontinued Medications Generic Name Dose Route Start Last Admin Trade Name Freq PRN Reason Stop Dose Admin Diltiazem HCl 10 mg 02/13/19 10:03 Diltiazem IVPUSH 02/13/19 10:04 ONETIME ONE Departure - Departure Time of Disposition: 11:07 Disposition: DC/Tfer to [facility] 02 Reason for Transfer *Q: Other Condition: Serious Clinical Impression: Atrial fibrillation with RVR Right lower lobe pneumonia Qualifiers: Pneumonia type: due to unspecified organism Qualified Code(s): J18.1 - Lobar pneumonia, unspecified organism Forms: Interfacility Transfer EMTALA Care Plan Goals: Discussed the patient's history, examination, lab, EKG and x-ray results with Dr. Alston (DC) during the visit. Dr. Alston accepted the patient for continued evaluation and management as an inpatient at the [facility] in [place]. The patient will be transported by [facility]. - My Orders Last 24 Hours: My Active Orders 02/13/19 09:33 EKG Documentation Completion [RC] URGENT 02/13/19 09:34 Chest 1V Frontal [CR] Urgent 02/13/19 09:42 CULTURE BLOOD [BC] Stat 02/13/19 10:38 CULTURE BLOOD [BC] Stat 02/13/19 10:42 cefTRIAXone [Rocephin] 1 gm Sodium Chloride 0.9% [Normal Saline] 50 ml IV ONETIME 02/13/19 11:02 Azithromycin [Zithromax] 500 mg Sodium Chloride 0.9% [Normal Saline] 250 ml IV ONETIME - Assessment/Plan Last 24 Hours: My Active Orders 02/13/19 09:33 EKG Documentation Completion [RC] URGENT 02/13/19 09:34 Chest 1V Frontal [CR] Urgent 02/13/19 09:42 CULTURE BLOOD [BC] Stat 02/13/19 10:38 CULTURE BLOOD [BC] Stat 02/13/19 10:42 cefTRIAXone [Rocephin] 1 gm Sodium Chloride 0.9% [Normal Saline] 50 ml IV ONETIME 02/13/19 11:02 Azithromycin [Zithromax] 500 mg Sodium Chloride 0.9% [Normal Saline] 250 ml IV ONETIME I have read and agree with the documentation that has been completed regarding this visit. By signing this record, I attest that the documentation was completed in my physical presence and is an accurate record of the encounter.
== END 2019-02-13 11:40 ==
LOC: DL.ED 09:36
DX: I48.91 Unspecified atrial fibrillation (principal); J18.1 Lobar pneumonia, unspecified organism; I11.0 Hypertensive heart disease with heart failure; I50.9 Heart failure, unspecified; J44.9 Chronic obstructive pulmonary disease, unspecified; E13.9 Other specified diabetes mellitus without complications; Z79.84 Long term (current) use of oral hypoglycemic drugs; Z79.899 Other long term (current) drug therapy; Z91.041 Radiographic dye allergy status
CPT/HCPCS: 36415; 71045; 80053; 81001; 83605; 83880; 84484; 85025; 87040; 93005; 96365; 96368; 99285; J0456; J0696; J7050

== ENCOUNTER 2019-03-11 03:40 | Observation (INO) | payer MEDICARE, MEDICAID ==
[2019-03-11] MEDS ORDERED: Albuterol/Ipratropium 3.0-0.5 MG/3 ML Neb Soln NEB ONE (04:11)
[2019-03-11 04:29] LABS: ANION GAP 12.3
[2019-03-11] MEDS ORDERED: Furosemide 40 MG/4 ML VIAL IVPUSH ONE (04:46)
--- NOTE | 2019-03-11 04:55 | EDM.PDOC ---
"ED HPI GENERAL MEDICAL PROBLEM - General Chief Complaint: Chest Pain Stated Complaint: AMBULANCE-CHEST PAIN Time Seen by Provider: 03/11/19 03:53 Source of Information: Reports: Patient, EMS, RN History Limitations: Reports: No Limitations - History of Present Illness INITIAL COMMENTS - FREE TEXT/NARRATIVE: ED via [facility] from [facility], with c/o awakening with CP. Staff note prior similar episodes patient had pneumonia. Has had cough recently, Home O2 dependent 3L, No report of fever or chills, Patient notes slight more swelling this am than usual. Prior weight 194 3 days ago, 201 this am. Patient reports feeling weak this am, needing help to get out of bed. Denies, chest pain on arrival. No nausea. - Related Data Allergies Allergy/AdvReac Type Severity Reaction Status Date / Time Iodinated Contrast Media Allergy Cannot Verified 03/11/19 04:01 [Iodinated Contrast Media - Remember Oral and] Home Meds: Home Meds Ascorbic Acid [Vitamin C] 500 mg PO DAILY 06/26/15 [History] Budesonide/Formoterol [Symbicort 160-4.5 MCG] 2 inh INH BID 06/26/15 [History] Simvastatin [Zocor] 10 mg PO BEDTIME 06/26/15 [History] Loratadine 10 mg PO DAILY 05/22/16 [History] Multivitamin [Multivitamins] 1 each PO DAILY 05/22/16 [History] Docusate Sodium [Colace] 50 mg PO BID PRN 10/08/18 [History] Finasteride 5 mg PO DAILY 10/08/18 [History] guaiFENesin [Guaifenesin] 200 mg PO TID 10/08/18 [History] metFORMIN [Glucophage] 500 mg PO BID 10/08/18 [History] Apixaban [Eliquis] 2.5 mg PO BID 02/13/19 [History] Ferrous Sulfate [Ferosul] 325 mg PO TID 02/13/19 [History] Furosemide [Lasix] 80 mg PO BID 02/13/19 [History] Metoprolol Tartrate 12.5 mg PO BID 02/13/19 [History] Olopatadine HCl 2.5 ml OP ASDIRECTED PRN 02/13/19 [History] Zolpidem Tartrate [Ambien] 5 mg PO BEDTIME 02/13/19 [History] Acetaminophen [Tylenol] 650 mg PO Q4HR 03/11/19 [History] Albuterol Sulfate 1 inh INH Q6H PRN 03/11/19 [History] Albuterol/Ipratropium [DuoNeb 3.0-0.5 MG/3 ML] 3 ml NEB QID 03/11/19 [History] Bisacodyl [Dulcolax] 5 mg PO DAILY PRN 03/11/19 [History] Clotrimazole [Clotrimazole 1%] 1 applic TOP BID 03/11/19 [History] Diltiazem [Cardizem CD] 180 mg PO DAILY 03/11/19 [History] predniSONE [Prednisone] 5 mg PO DAILY 03/11/19 [History] Past Medical History HEENT History: Reports: Cataract, Hard of Hearing Cardiovascular History: Reports: Heart Failure, Hypertension Respiratory History: Reports: COPD, Other (See Below) Other Respiratory History: pleural effusion Gastrointestinal History: Reports: Colon Polyp Genitourinary History: Reports: BPH Musculoskeletal History: Reports: Other (See Below) Other Musculoskeletal History: adiposity Neurological History: Reports: None Psychiatric History: Reports: None Endocrine/Metabolic History: Reports: Diabetes, Type II, Obesity/BMI 30+ Hematologic History: Reports: None Immunologic History: Reports: None Oncologic (Cancer) History: Reports: Malignant Melanoma Dermatologic History: Reports: Melanoma Other Dermatologic History: malignant melanoma - Infectious Disease History Infectious Disease History: Reports: Measles, Mumps - Past Surgical History Head Surgeries/Procedures: Reports: None HEENT Surgical History: Reports: Cataract Surgery, Other (See Below) Cardiovascular Surgical History: Reports: None GI Surgical History: Reports: Colonoscopy Social & Family History - Family History Family Medical History: Noncontributory - Tobacco Use Smoking Status *Q: Unknown Ever Smoked - Caffeine Use Caffeine Use: Reports: Coffee - Recreational Drug Use Recreational Drug Use: No ED ROS GENERAL - Review of Systems Review Of Systems: See Below Constitutional: Reports: Weakness. Denies: Fever, Chills HEENT: Reports: No Symptoms Respiratory: Reports: Wheezing, Cough Cardiovascular: Reports: Chest Pain (earlier this am , no at time of presentation) GI/Abdominal: Denies: Abdominal Pain : Reports: No Symptoms Musculoskeletal: Reports: No Symptoms Skin: Reports: No Symptoms Neurological: Reports: No Symptoms ED EXAM, GENERAL - Physical Exam Exam: See Below Exam Limited By: No Limitations General Appearance: Alert, Mild Distress, Obese Eye Exam: Bilateral Eye: EOMI Ears: Normal External Exam Nose: Normal Inspection Throat/Mouth: Normal Inspection Head: Atraumatic, Normocephalic Neck: Normal Inspection Respiratory/Chest: Decreased Breath Sounds, Rales (bases, right greater), Wheezing Cardiovascular: Normal Peripheral Pulses, Irregularly Irregular. No: Regular Rate, Rhythm, No Edema (2+) GI/Abdominal: Normal Bowel Sounds, Soft, Non-Tender Back Exam: Normal Inspection, Full Range of Motion Extremities: Normal Inspection, Normal Range of Motion Neurological: Alert, Oriented, Normal Cognition, No Motor/Sensory Deficits, Other (generalized weakness. equal bilateral strength) Psychiatric: Normal Affect Skin Exam: Warm, Dry, Intact, Pallor Course - Vital Signs Last Recorded V/S: Last Vital Signs Temp 97.7 F 03/11/19 03:54 Pulse 87 03/11/19 03:54 Resp 17 03/11/19 03:54 BP 102/66 03/11/19 03:54 Pulse Ox 94 L 03/11/19 03:54 - Orders/Labs/Meds Orders: Active Orders 24 hr Category Date Time Status Admission Status [Patient Status] [ADT] Routine ADT 03/11/19 06:58 Active EKG Documentation Completion [RC] URGENT Care 03/11/19 03:48 Active EKG Documentation Completion [RC] URGENT Care 03/11/19 03:59 Inactive RT Aerosol Therapy [RC] ASDIRECTED Care 03/11/19 04:11 Active Chest 1V Frontal [CR] Urgent Exams 03/11/19 03:59 Taken Chest wo Cont [CT] Urgent Exams 03/11/19 05:33 Taken Head wo Cont [CT] Urgent Exams 03/11/19 05:33 Taken CULTURE BLOOD [BC] Stat Lab 03/11/19 04:00 Received CULTURE BLOOD [BC] Stat Lab 03/11/19 04:45 Received Blood Culture x2 Reflex Set [OM.PC] Stat Oth 03/11/19 04:12 Ordered Labs: Laboratory Tests 03/11/19 03/11/19 03/11/19 Range/Units 04:00 04:00 04:00 WBC 9.9 (5.0-10.0) 10^3/uL RBC 4.34 L (4.6-6.2) 10^6/uL Hgb 12.5 L (14.0-18.0) g/dL Hct 40.8 (40.0-54.0) % MCV 94.0 (80-100) fL MCH 28.8 (27.0-34.0) pg MCHC 30.6 L (33.0-35.0) g/dL Plt Count 202 D (150-450) 10^3/uL Neut % (Auto) 58.1 (42.2-75.2) % Lymph % (Auto) 28.4 (20.5-50.1) % [place] % (Auto) 11.1 H (2-8) % Eos % (Auto) 1.8 (1.0-3.0) % Baso % (Auto) 0.6 (0.0-1.0) % Add Manual Diff Yes Neutrophils % (Manual) 57 (42-75) % Band Neutrophils % 1 % Lymphocytes % (Manual) 30 (20-50) % Monocytes % (Manual) 10 H (2-8) % Metamyelocytes % 2 ABG pH (7.35-7.45) ABG pCO2 (35-45) mmHg ABG pO2 (70-100) mmHg ABG HCO3 (22-26) mmol/L ABG O2 Saturation (95-100) % ABG Base Excess ((-2)-(+3)) mmol/L Christos Test O2 Delivery Device Sodium 144 (135-145) mmol/L Potassium 3.3 L (3.6-5.0) mmol/L Chloride 98 L (101-111) mmol/L Carbon Dioxide 37.0 H (21.0-31.0) mmol/L Anion Gap 12.3 BUN 26 H (7-18) mg/dL Creatinine 1.3 (0.6-1.3) mg/dL Est Cr Clr Drug Dosing 39.46 mL/min Estimated GFR (MDRD) 52 BUN/Creatinine Ratio 20.00 Glucose 93 (74-105) mg/dL Lactic Acid (0.5-2.2) mmol/L Calcium 8.8 (8.4-10.2) mg/dl Total Bilirubin 0.4 (0.2-1.0) mg/dL AST 15 (10-42) IU/L ALT 15 (10-60) IU/L Alkaline Phosphatase 44 (42-121) IU/L CK-MB (CK-2) 1.30 (0.4-4.7) ng/mL Troponin I 0.02 (0.00-0.02) ng/ml B-Natriuretic Peptide 207 H (0-100) pg/ml Total Protein 5.7 L (6.7-8.2) g/dl Albumin 3.3 (3.2-5.5) g/dl Globulin 2.4 Albumin/Globulin Ratio 1.38 03/11/19 03/11/19 Range/Units 04:00 05:12 WBC (5.0-10.0) 10^3/uL RBC (4.6-6.2) 10^6/uL Hgb (14.0-18.0) g/dL Hct (40.0-54.0) % MCV (80-100) fL MCH (27.0-34.0) pg MCHC (33.0-35.0) g/dL Plt Count (150-450) 10^3/uL Neut % (Auto) (42.2-75.2) % Lymph % (Auto) (20.5-50.1) % [place] % (Auto) (2-8) % Eos % (Auto) (1.0-3.0) % Baso % (Auto) (0.0-1.0) % Add Manual Diff Neutrophils % (Manual) (42-75) % Band Neutrophils % % Lymphocytes % (Manual) (20-50) % Monocytes % (Manual) (2-8) % Metamyelocytes % ABG pH 7.40 (7.35-7.45) ABG pCO2 60 H (35-45) mmHg ABG pO2 81 (70-100) mmHg ABG HCO3 36.4 H (22-26) mmol/L ABG O2 Saturation 95 (95-100) % ABG Base Excess 10 H ((-2)-(+3)) mmol/L Christos Test Performed O2 Delivery Device Nasal cannula Sodium (135-145) mmol/L Potassium (3.6-5.0) mmol/L Chloride (101-111) mmol/L Carbon Dioxide (21.0-31.0) mmol/L Anion Gap BUN (7-18) mg/dL Creatinine (0.6-1.3) mg/dL Est Cr Clr Drug Dosing mL/min Estimated GFR (MDRD) BUN/Creatinine Ratio Glucose (74-105) mg/dL Lactic Acid 1.5 (0.5-2.2) mmol/L Calcium (8.4-10.2) mg/dl Total Bilirubin (0.2-1.0) mg/dL AST (10-42) IU/L ALT (10-60) IU/L Alkaline Phosphatase (42-121) IU/L CK-MB (CK-2) (0.4-4.7) ng/mL Troponin I (0.00-0.02) ng/ml B-Natriuretic Peptide (0-100) pg/ml Total Protein (6.7-8.2) g/dl Albumin (3.2-5.5) g/dl Globulin Albumin/Globulin Ratio Meds: Medications Discontinued Medications Generic Name Dose Route Start Last Admin Trade Name Freq PRN Reason Stop Dose Admin Albuterol/Ipratropium 3 ml 03/11/19 04:11 03/11/19 04:30 Duoneb 3.0-0.5 Mg/3 Ml NEB 03/11/19 04:12 3 ml ONETIME ONE Administration Furosemide 40 mg 03/11/19 04:46 03/11/19 04:54 Lasix IVPUSH 03/11/19 04:47 40 mg NOW ONE Administration Azithromycin 500 mg/ Sodium 250 mls @ 250 mls/hr 03/11/19 05:44 03/11/19 06: 54 Chloride IV 03/11/19 06:43 250 mls/hr ONETIME ONE Administration Ceftriaxone Sodium 1 gm/ 50 mls @ 50 mls/hr 03/11/19 05:44 03/11/19 06:03 Sodium Chloride IV 03/11/19 06:43 50 mls/hr ONETIME ONE Administration - Radiology Interpretation Free Text/Narrative:: [facility] Final Radiology Report Call: [phone] assistance Online chat: [email or web address] Name: LETICIA NOVAK Age: 88Years M Date: 03/11/2019 SSN: -- : [id number] Study: CT HEAD WO Requesting Physician: ZENOBIA CABRERA Images: [id number] Addl Studies: Provided Clinical History: Contrast: Without Contrast Medium: Contrast Amount: Contrast Method: Page 1 of 2 PROCEDURE INFORMATION: Exam: CT Head Without Contrast Exam date and time: 03/11/2019 5:47 AM Clinical history: 88 years old, male; Other: Weakness TECHNIQUE: Imaging protocol: Computed tomography of the head without contrast. Radiation optimization: All CT scans at this facility use at least one of these dose optimization techniques: automated exposure control; mA and/or kV adjustment per patient size (includes targeted exams where dose is matched to clinical indication); or iterative reconstruction. COMPARISON: CT Head wo Cont 06/26/2015 11:43 AM FINDINGS: Brain: Patchy lucencies in the white matter are nonspecific but most suggestive of chronic microvascular ischemic disease. There is no evidence for large acute cortical infarct. No intracranial hemorrhage or extraaxial collection is identified. There is no significant intracranial mass effect. Ventricles: The ventricles and sulci are mildly prominent, in concordance with mild global atrophy. Bones/joints: Unremarkable. No acute fracture. Sinuses: Mild chronic mucosal disease involves the left maxillary and right sphenoid sinuses. The visualized paranasal sinuses and air cells are otherwise clear. Mastoid air cells: Visualized mastoid air cells are well aerated. Soft tissues: Unremarkable. Vasculature: Intracranial atherosclerotic vascular calcifications are noted. IMPRESSION: No CT evidence for acute intracranial abnormality. ASSESSMENT: ASPECTS (Jessica Stroke Program Early CT Score) is 10. LETICIA NOVAK | Final Radiology Report CONFIDENTIALITY STATEMENT This report is intended only for use by the referring physician, and only in accordance with law. If you received this in error, call [phone]. Page 2 of 2 COMMENT: Early cerebral infarct may be CT occult in the first 12 hours. Thank you for allowing us to participate in the care of your patient. Dictated and Authenticated by: Eligio Mejia MD 03/11/2019 6:30 AM Central Time ( & [facility] Final Radiology Report Call: [phone] assistance Online chat: [email or web address] Name: LETICIA NOVAK Age: 88Years M Date: 03/11/2019 SSN: -- : [id number] Study: CT CHEST WO Requesting Physician: ZENOBIA CABRERA Images: [id number] Addl Studies: Provided Clinical History: Contrast: Without Contrast Medium: Contrast Amount: Contrast Method: Page 1 of 2 PROCEDURE INFORMATION: Exam: CT Chest Without Contrast Exam date and time: 03/11/2019 5:50 AM Clinical history: 88 years old, male; Patient HX: Cough and SOB TECHNIQUE: Imaging protocol: Computed tomography of the chest without contrast. Radiation optimization: All CT scans at this facility use at least one of these dose optimization techniques: automated exposure control; mA and/or kV adjustment per patient size (includes targeted exams where dose is matched to clinical indication); or iterative reconstruction. COMPARISON: CR Chest 1V Frontal 03/11/2019 4:23 AM FINDINGS: Limitations: Evaluation is somewhat limited by lack of IV contrast. Lungs: The lungs demonstrate moderate panlobular emphysematous disease. There is mild dependent atelectasis and scattered scarring bilaterally. A 7 mm pleural-based nodule is present in the right upper lobe (image 2:18). Pleural space: No pleural effusion or pneumothorax. Heart: Coronary artery calcifications are noted. Aorta: The thoracic aorta is nonaneurysmal. Atherosclerotic vascular calcifications are noted. Lymph nodes: There is an enlarged subcarinal lymph node, measuring 1.5 cm short axis. A right paraesophageal lymph node inferior to this measures 1.4 cm short axis. Bones/joints: Degenerative changes involve the spine. Soft tissues: Unremarkable. IMPRESSION: 1. Moderate emphysematous disease. 2. Mild mediastinal lymphadenopathy, nonspecific. Correlate clinically and followup. LETICIA NOVAK | Final Radiology Report CONFIDENTIALITY STATEMENT This report is intended only for use by the referring physician, and only in accordance with law. If you received this in error, call [phone]. Page 2 of 2 3. 7 mm right upper lobe nodule. For patients at high risk (history of smoking or of other known risk factors), recommend CT at 6-12 months, then CT at 18-24 months. (Sonu et al., Fleischner Society, 2017) Thank you for allowing us to participate in the care of your patient. Dictated and Authenticated by: Eligio Mejia MD 03/11/2019 6:35 AM Central Time ([place] & [place]) - Re-Assessments/Exams Free Text/Narrative Re-Assessment/Exam: 03/11/19 07:02 Improved exchange with Neb, Output 250ml following lasix , Continued dyspnea with conversation. Dr Brandon VILLANUEVA Hospitalist accepting patient for further management. Departure - Departure Time of Disposition: 06:56 Disposition: Home, Self-Care 01 Condition: Fair Clinical Impression: Generalized weakness COPD (chronic obstructive pulmonary disease) Qualifiers: COPD type: emphysema Emphysema type: unspecified Qualified Code(s): J43.9 - Emphysema, unspecified CHF (congestive heart failure) Qualifiers: Heart failure type: unspecified Heart failure chronicity: acute on chronic Qualified Code(s): I50.9 - Heart failure, unspecified Forms: ED Department Discharge - My Orders Last 24 Hours: My Active Orders 03/11/19 03:48 EKG Documentation Completion [RC] URGENT 03/11/19 03:59 EKG Documentation Completion [RC] URGENT Chest 1V Frontal [CR] Urgent 03/11/19 04:00 CULTURE BLOOD [BC] Stat 03/11/19 04:11 RT Aerosol Therapy [RC] ASDIRECTED 03/11/19 04:12 Blood Culture x2 Reflex Set [OM.PC] Stat 03/11/19 04:45 CULTURE BLOOD [BC] Stat 03/11/19 05:33 Chest wo Cont [CT] Urgent Head wo Cont [CT] Urgent 03/11/19 06:58 Admission Status [Patient Status] [ADT] Routine - Assessment/Plan Last 24 Hours: My Active Orders 03/11/19 03:48 EKG Documentation Completion [RC] URGENT 03/11/19 03:59 EKG Documentation Completion [RC] URGENT Chest 1V Frontal [CR] Urgent 03/11/19 04:00 CULTURE BLOOD [BC] Stat 03/11/19 04:11 RT Aerosol Therapy [RC] ASDIRECTED 03/11/19 04:12 Blood Culture x2 Reflex Set [OM.PC] Stat 03/11/19 04:45 CULTURE BLOOD [BC] Stat 03/11/19 05:33 Chest wo Cont [CT] Urgent Head wo Cont [CT] Urgent 03/11/19 06:58 Admission Status [Patient Status] [ADT] Routine"
[2019-03-11 05:19] LABS: BASE EXCESS ARTERIAL 10 mmol/L ((-2)-(+3)); BICARBONATE,ARTERIAL 36.4 mmol/L (22-26); O2 DELIVERY DEVICE NASAL CANNULA; O2 SATURATION ARTERIAL 95 % (95-100); PCO2 ARTERIAL 60 mmHg (35-45); PO2 ARTERIAL 81 mmHg (70-100)
[2019-03-11 05:21] LABS: ALLEN TEST PERFORMED
[2019-03-11] MEDS ORDERED: Azithromycin 500 MG in Sodium Chloride 0.9% 250 ML IV ONE (05:44)
[2019-03-11] MEDS ORDERED: cefTRIAXone 1 GM in Sodium Chloride 0.9% 50 ML IV ONE (05:44)
[2019-03-11] MEDS ORDERED: Acetaminophen 325 MG Tab PO PRN (09:12)
[2019-03-11] MEDS ORDERED: Ondansetron 4 MG/2 ML SDV IV PRN (09:12)
[2019-03-11] MEDS ORDERED: Sodium Chloride 0.9% 10 ML Syringe FLUSH PRN (09:13)
[2019-03-11] MEDS ORDERED: Bisacodyl 5 MG Tab PO PRN (09:15)
[2019-03-11] MEDS ORDERED: Docusate Sodium 100 MG Cap PO PRN (09:15)
[2019-03-11] MEDS ORDERED: Enoxaparin 40 MG/0.4 ML Syringe SUBCUT SCH (09:15)
[2019-03-11] MEDS ORDERED: Albuterol 0.083% 2.5 MG/3 ML Neb Soln NEB PRN (09:17)
[2019-03-11] MEDS ORDERED: Furosemide 40 MG/4 ML VIAL IVPUSH SCH (10:00)
[2019-03-11] MEDS ORDERED: Potassium Chloride 10 MEQ Tab.ER PO ONE (10:00)
--- NOTE | 2019-03-11 10:12 | PCM.HP ---
H&P History of Present Illness - General Date of Service: 03/11/19 Admit Problem/Dx: Admission Diagnosis/Problem Admission Diagnosis/Problem CHF, Congestive heart failure Source of Information: Patient History Limitations: Reports: No Limitations - History of Present Illness Initial Comments - Free Text/Narative: 88 yo M with PMH of CHF, COPD, afib on anticoagulation, diabetes mellitus who presents with shortness of breath. Acute onset of shortness of breath occured this morning. Patient was sent into the ER from the OR Reports difficulty breathing, worse with exertion. Cough, productive of whitish sputum No fever, no chills, no chest pain, no abdominal pain, no nausea or vomiting Has some bilateral leg swelling, chronic. In the ED, patient had CT chest that showed emphysema, no pneumonia. SOB improved with neb treatments. - Related Data Allergies/Adverse Reactions: Allergies Allergy/AdvReac Type Severity Reaction Status Date / Time Iodinated Contrast Media Allergy Cannot Verified 03/11/19 07:42 [Iodinated Contrast Media - Remember Oral and] Home Medications: Home Meds Ascorbic Acid [Vitamin C] 500 mg PO DAILY 06/26/15 [History] Budesonide/Formoterol [Symbicort 160-4.5 MCG] 2 inh INH BID 06/26/15 [History] Simvastatin [Zocor] 10 mg PO BEDTIME 06/26/15 [History] Loratadine 10 mg PO DAILY 05/22/16 [History] Multivitamin [Multivitamins] 1 each PO DAILY 05/22/16 [History] Docusate Sodium [Colace] 100 mg PO BID PRN 10/08/18 [History] Finasteride 5 mg PO DAILY 10/08/18 [History] guaiFENesin [Guaifenesin] 200 mg PO TID 10/08/18 [History] metFORMIN [Glucophage] 500 mg PO BID 10/08/18 [History] Apixaban [Eliquis] 2.5 mg PO BID 02/13/19 [History] Ferrous Sulfate [Ferosul] 325 mg PO TID 02/13/19 [History] Furosemide [Lasix] 80 mg PO BID 02/13/19 [History] Metoprolol Tartrate 12.5 mg PO BID 02/13/19 [History] Olopatadine HCl 1 drop OP ASDIRECTED PRN 02/13/19 [History] Zolpidem Tartrate [Ambien] 5 mg PO BEDTIME 02/13/19 [History] Acetaminophen [Tylenol] 650 mg PO Q4HR 03/11/19 [History] Albuterol Sulfate 1 inh INH Q6H PRN 03/11/19 [History] Albuterol/Ipratropium [DuoNeb 3.0-0.5 MG/3 ML] 3 ml NEB QID 03/11/19 [History] Amoxicillin/Clavulanate K [Augmentin 875-125 MG] 1 tab PO BID 03/11/19 [History] Bisacodyl [Dulcolax] 5 mg PO DAILY PRN 03/11/19 [History] Clotrimazole [Clotrimazole 1%] 1 applic TOP BID 03/11/19 [History] Diltiazem [Cardizem CD] 180 mg PO DAILY 03/11/19 [History] predniSONE [Prednisone] 5 mg PO DAILY 03/11/19 [History] Past Medical History HEENT History: Reports: Cataract, Hard of Hearing Cardiovascular History: Reports: Heart Failure, Heart Murmur, Hypertension, SOB on Exertion Other Cardiovascular History: denies hyt and chf 03-11-19 Respiratory History: Reports: COPD, SOB, Other (See Below) Other Respiratory History: pleural effusion Gastrointestinal History: Reports: Colon Polyp Genitourinary History: Reports: BPH Musculoskeletal History: Reports: Other (See Below) Other Musculoskeletal History: adiposity Neurological History: Reports: None Psychiatric History: Reports: None Endocrine/Metabolic History: Reports: Diabetes, Type II, Obesity/BMI 30+ Hematologic History: Reports: None Immunologic History: Reports: None Oncologic (Cancer) History: Reports: Malignant Melanoma Dermatologic History: Reports: Melanoma Other Dermatologic History: malignant melanoma - denies 03/11/19 - Infectious Disease History Infectious Disease History: Reports: Chicken Pox, Measles, Mumps, Rubella - Past Surgical History Head Surgeries/Procedures: Reports: None HEENT Surgical History: Reports: Cataract Surgery, Other (See Below) Cardiovascular Surgical History: Reports: None Respiratory Surgical History: Reports: None GI Surgical History: Reports: Colonoscopy Endocrine Surgical History: Reports: None Musculoskeletal Surgical History: Reports: None, Other (See Below) Other Musculoskeletal Surgeries/Procedures:: Surgery on left hand Social & Family History - Family History Family Medical History: Noncontributory - Tobacco Use Smoking Status *Q: Former Smoker Years of Tobacco use: 40 Packs/Tins Daily: 0.5 Used Tobacco, but Quit: Yes Month/Year Tobacco Last Used: 1994 Second Hand Smoke Exposure: No - Caffeine Use Caffeine Use: Reports: Coffee - Recreational Drug Use Recreational Drug Use: No H&P Review of Systems - Review of Systems: Review Of Systems: ROS reveals no pertinent complaints other than HPI. General: Denies: Fever HEENT: Reports: No Symptoms Pulmonary: Reports: Shortness of Breath, Cough Cardiovascular: Reports: No Symptoms Gastrointestinal: Reports: No Symptoms Genitourinary: Reports: No Symptoms Musculoskeletal: Reports: Other (bilateral leg swelling) Skin: Reports: No Symptoms Psychiatric: Reports: No Symptoms Neurological: Reports: No Symptoms Exam - Exam Exam: See Below - Vital Signs Vital Signs: Last Vital Signs Temp 35.6 C 03/11/19 07:39 Pulse 65 03/11/19 07:39 Resp 24 H 03/11/19 07:39 BP 107/60 03/11/19 07:39 Pulse Ox 92 L 03/11/19 07:39 Weight: 89.176 kg - Exam Quality Assessment: Supplemental Oxygen General: Alert, Oriented HEENT: Pupils Equal, Pupils Reactive Neck: Supple, Trachea Midline Lungs: Wheezing Cardiovascular: Normal S1, Normal S2 GI/Abdominal Exam: Normal Bowel Sounds, Soft, Non-Tender Extremities: Normal Range of Motion, Pedal Edema Neuro Extensive - Mental Status: Alert, Oriented x3, Normal Mood/Affect, Normal Cognition, Memory Intact - Patient Data Lab Results Last 24 hrs: Laboratory Results - last 24 hr 03/11/19 03/11/19 03/11/19 Range/Units 04:00 04:00 04:00 WBC 9.9 (5.0-10.0) 10^3/uL RBC 4.34 L (4.6-6.2) 10^6/uL Hgb 12.5 L (14.0-18.0) g/dL Hct 40.8 (40.0-54.0) % MCV 94.0 (80-100) fL MCH 28.8 (27.0-34.0) pg MCHC 30.6 L (33.0-35.0) g/dL Plt Count 202 D (150-450) 10^3/uL Neut % (Auto) 58.1 (42.2-75.2) % Lymph % (Auto) 28.4 (20.5-50.1) % [place] % (Auto) 11.1 H (2-8) % Eos % (Auto) 1.8 (1.0-3.0) % Baso % (Auto) 0.6 (0.0-1.0) % Add Manual Diff Yes Neutrophils % (Manual) 57 (42-75) % Band Neutrophils % 1 % Lymphocytes % (Manual) 30 (20-50) % Monocytes % (Manual) 10 H (2-8) % Metamyelocytes % 2 ABG pH (7.35-7.45) ABG pCO2 (35-45) mmHg ABG pO2 (70-100) mmHg ABG HCO3 (22-26) mmol/L ABG O2 Saturation (95-100) % ABG Base Excess ((-2)-(+3)) mmol/L Christos Test O2 Delivery Device Sodium 144 (135-145) mmol/L Potassium 3.3 L (3.6-5.0) mmol/L Chloride 98 L (101-111) mmol/L Carbon Dioxide 37.0 H (21.0-31.0) mmol/L Anion Gap 12.3 BUN 26 H (7-18) mg/dL Creatinine 1.3 (0.6-1.3) mg/dL Est Cr Clr Drug Dosing 39.46 mL/min Estimated GFR (MDRD) 52 BUN/Creatinine Ratio 20.00 Glucose 93 (74-105) mg/dL Lactic Acid (0.5-2.2) mmol/L Calcium 8.8 (8.4-10.2) mg/dl Total Bilirubin 0.4 (0.2-1.0) mg/dL AST 15 (10-42) IU/L ALT 15 (10-60) IU/L Alkaline Phosphatase 44 (42-121) IU/L CK-MB (CK-2) 1.30 (0.4-4.7) ng/mL Troponin I 0.02 (0.00-0.02) ng/ml B-Natriuretic Peptide 207 H (0-100) pg/ml Total Protein 5.7 L (6.7-8.2) g/dl Albumin 3.3 (3.2-5.5) g/dl Globulin 2.4 Albumin/Globulin Ratio 1.38 09/19/19 09/19/19 Range/Units 04:00 05:12 WBC (5.0-10.0) 10^3/uL RBC (4.6-6.2) 10^6/uL Hgb (14.0-18.0) g/dL Hct (40.0-54.0) % MCV (80-100) fL MCH (27.0-34.0) pg MCHC (33.0-35.0) g/dL Plt Count (150-450) 10^3/uL Neut % (Auto) (42.2-75.2) % Lymph % (Auto) (20.5-50.1) % [place] % (Auto) (2-8) % Eos % (Auto) (1.0-3.0) % Baso % (Auto) (0.0-1.0) % Add Manual Diff Neutrophils % (Manual) (42-75) % Band Neutrophils % % Lymphocytes % (Manual) (20-50) % Monocytes % (Manual) (2-8) % Metamyelocytes % ABG pH 7.40 (7.35-7.45) ABG pCO2 60 H (35-45) mmHg ABG pO2 81 (70-100) mmHg ABG HCO3 36.4 H (22-26) mmol/L ABG O2 Saturation 95 (95-100) % ABG Base Excess 10 H ((-2)-(+3)) mmol/L Christos Test Performed O2 Delivery Device Nasal cannula Sodium (135-145) mmol/L Potassium (3.6-5.0) mmol/L Chloride (101-111) mmol/L Carbon Dioxide (21.0-31.0) mmol/L Anion Gap BUN (7-18) mg/dL Creatinine (0.6-1.3) mg/dL Est Cr Clr Drug Dosing mL/min Estimated GFR (MDRD) BUN/Creatinine Ratio Glucose (74-105) mg/dL Lactic Acid 1.5 (0.5-2.2) mmol/L Calcium (8.4-10.2) mg/dl Total Bilirubin (0.2-1.0) mg/dL AST (10-42) IU/L ALT (10-60) IU/L Alkaline Phosphatase (42-121) IU/L CK-MB (CK-2) (0.4-4.7) ng/mL Troponin I (0.00-0.02) ng/ml B-Natriuretic Peptide (0-100) pg/ml Total Protein (6.7-8.2) g/dl Albumin (3.2-5.5) g/dl Globulin Albumin/Globulin Ratio Result Diagrams: 03/11/19 04:00 03/11/19 04:00 Problem List Initiated/Reviewed/Updated: Yes Orders Last 24hrs: Active Orders 24 hr Category Date Time Status Patient Status [ADT] Routine ADT 03/11/19 09:13 Active Accu Check [Blood Glucose Check, Bedside] [RC] Care 03/11/19 09:13 Active QIDACANDBED Ambulate [RC] ASDIRECTED Care 03/11/19 09:13 Active EKG Documentation Completion [RC] URGENT Care 03/11/19 03:59 Inactive Height and Weight [RC] DAILY Care 03/11/19 09:13 Active Oxygen Therapy [RC] PRN Care 03/11/19 09:13 Active Peripheral IV Care [RC] . DIRECTED Care 03/11/19 09:13 Active RT Aerosol Therapy [RC] ASDIRECTED Care 03/11/19 04:11 Active RT Chest Physiotherapy [RC] ASDIRECTED Care 03/11/19 09:17 Active RT Incentive Spirometry [RC] ASDIRECTED Care 03/11/19 09:17 Active Up With Assistance [RC] ASDIRECTED Care 03/11/19 09:13 Active VTE/DVT Education [RC] PER UNIT ROUTINE Care 03/11/19 09:13 Active Vital Signs [RC] Q4H Care 03/11/19 09:13 Active OT Evaluation and Treatment [CONS] Routine Cons 03/11/19 09:13 Active PT Evaluation and Treatment [CONS] Routine Cons 03/11/19 09:13 Active Consistent Carbohydrate Diet [DIET] Diet 03/11/19 Lunch Active Fluid Restriction [DIET] Diet 03/11/19 Lunch Active Sodium Restricted Diet [DIET] Diet 03/11/19 Lunch Active Chest wo Cont [CT] Urgent Exams 03/11/19 05:33 Taken Head wo Cont [CT] Urgent Exams 03/11/19 05:33 Taken BASIC METABOLIC PANEL,BMP [CHEM] AM Lab 03/12/19 05:11 Ordered BASIC METABOLIC PANEL,BMP [CHEM] AM Lab 03/13/19 05:11 Ordered BASIC METABOLIC PANEL,BMP [CHEM] AM Lab 03/14/19 05:11 Ordered CBC W/O DIFF,HEMOGRAM [HEME] AM Lab 03/12/19 05:11 Ordered CBC W/O DIFF,HEMOGRAM [HEME] AM Lab 03/13/19 05:11 Ordered CBC W/O DIFF,HEMOGRAM [HEME] AM Lab 03/14/19 05:11 Ordered CULTURE BLOOD [BC] Stat Lab 03/11/19 04:00 Received CULTURE BLOOD [BC] Stat Lab 03/11/19 04:45 Received Acetaminophen [Tylenol] Med 03/11/19 09:12 Active 650 mg PO Q4H PRN Albuterol [Proventil Neb Soln] Med 03/11/19 09:17 Active 2.5 mg NEB Q6HRRT PRN Albuterol/Ipratropium [DuoNeb 3.0-0.5 MG/3 ML] Med 03/11/19 13:00 Active 3 ml NEB Q6HRRT Apixaban [Eliquis] Med 03/11/19 09:30 Ordered 2.5 mg PO BID Ascorbic Acid [Vitamin C] Med 03/12/19 09:00 Ordered 500 mg PO DAILY Azithromycin [Zithromax] Med 03/12/19 09:00 Active 500 mg PO DAILY Bisacodyl [Dulcolax] Med 03/11/19 09:15 Ordered 5 mg PO DAILY PRN Diltiazem [Cardizem CD] Med 03/11/19 09:30 Pending 180 mg PO DAILY Docusate Sodium [Colace] Med 03/11/19 09:15 Ordered 100 mg PO BID PRN Ferrous Sulfate Med 03/11/19 14:00 Ordered 325 mg PO TID Finasteride [Proscar] Med 03/11/19 09:30 Ordered 5 mg PO DAILY Furosemide [Lasix] Med 03/11/19 14:00 Ordered 40 mg IVPUSH BIDDIURETIC Insulin Lispro [HumaLOG] Med 03/11/19 11:00 Active See Protocol SUBCUT QIDACANDBED Metoprolol Tartrate [Lopressor] Med 03/11/19 09:30 Ordered 12.5 mg PO BID Mometasone/Formoterol [Dulera 200-5 MCG] Med 03/11/19 18:00 Ordered 2 puff IH BIDRT Multivitamin [Multivitamins] Med 03/11/19 09:30 Ordered 1 each PO DAILY Ondansetron [Zofran] Med 03/11/19 09:12 Active 4 mg IV Q4H PRN Simvastatin [Zocor] Med 03/11/19 21:00 Ordered 10 mg PO BEDTIME Sodium Chloride 0.9% [Saline Flush] Med 03/11/19 09:13 Active 10 ml FLUSH ASDIRECTED PRN Zolpidem [Ambien] Med 03/11/19 21:00 Ordered 5 mg PO BEDTIME guaiFENesin [Guaifenesin] Med 03/11/19 14:00 Ordered 200 mg PO TID predniSONE Med 03/11/19 10:00 Active 50 mg PO WITHBREAKFAST Blood Culture x2 Reflex Set [OM.PC] Stat Oth 03/11/19 04:12 Ordered Peripheral IV Insertion Adult [OM.PC] Routine Oth 03/11/19 09:13 Ordered Saline Lock Insert [OM.PC] Routine Oth 03/11/19 09:13 Ordered Code Status [Resuscitation Status] Stat Resus Stat 03/11/19 07:07 Ordered Medication Orders Acetaminophen (Tylenol) 650 mg PO Q4H PRN PRN Reason: Pain/Fever Albuterol (Proventil Neb Soln) 2.5 mg NEB Q6HRRT PRN PRN Reason: Shortness of Breath Albuterol/Ipratropium (Duoneb 3.0-0.5 Mg/3 Ml) 3 ml NEB Q6HRRT [facility] Azithromycin (Zithromax) 500 mg PO DAILY [facility] Bisacodyl (Dulcolax) 5 mg PO DAILY PRN PRN Reason: Constipation Diltiazem HCl (Cardizem Cd) 180 mg PO DAILY [facility] Ferrous Sulfate (Ferrous Sulfate) 325 mg PO TID [facility] Finasteride (Proscar) 5 mg PO DAILY [facility] Furosemide (Lasix) 40 mg IVPUSH BIDDIURETIC [facility] Insulin Human Lispro (Humalog) 0 unit SUBCUT QIDACANDBED [facility]; Protocol Metoprolol Tartrate (Lopressor) 12.5 mg PO BID [facility] Mometasone Furoate/Formoterol Fumar (Dulera 200-5 Mcg) 2 puff IH BIDRT [facility] Non-Formulary Medication (Apixaban [Eliquis]) 2.5 mg PO BID [facility] Non-Formulary Medication (Ascorbic Acid [Vitamin C]) 500 mg PO DAILY [facility] Non-Formulary Medication (Docusate Sodium [Colace]) 100 mg PO BID PRN PRN Reason: Constipation Non-Formulary Medication (Guaifenesin [Guaifenesin]) 200 mg PO TID [facility] Non-Formulary Medication (Multivitamin [Multivitamins]) 1 each PO DAILY [facility] Ondansetron HCl (Zofran) 4 mg IV Q4H PRN PRN Reason: Nausea/Vomiting Prednisone (Prednisone) 50 mg PO WITHBREAKFAST [facility] Simvastatin (Zocor) 10 mg PO BEDTIME [facility] Sodium Chloride (Saline Flush) 10 ml FLUSH ASDIRECTED PRN PRN Reason: Keep Vein Open Zolpidem Tartrate (Ambien) 5 mg PO BEDTIME [facility] Assessment/Plan Comment:: #SOB, cough #Likely multifactorial: CHF, COPD exacerbation -start COPD protocol: duonebs, oral prednisone, ICS/LABA -IV lasix, salt restriction, fluid restriction -supplemental oxygen as needed #Leg swelling -likely due to CHF -IV lasix bid #Hx of DM accuchecks, ISS carb consistent diet #Hx of afib -stable -rate control: continue metoprolol, cardizem -anticoagulation: continue apixaban #HLD continue simvastatin #DVT ppx on apixaban #Code status DNR/DNI Dispo PT/OT
[2019-03-11] MEDS: predniSONE 20 MG Tab PO SCH (11:32)
[2019-03-11] MEDS: Insulin Lispro 100 Units/ML 3 ML Vial SUBCUT SCH ×3 (12:06→21:45)
[2019-03-11] MEDS ORDERED: Albuterol/Ipratropium 3.0-0.5 MG/3 ML Neb Soln NEB SCH (13:00)
[2019-03-11] MEDS: Furosemide 40 MG/4 ML VIAL IVPUSH SCH (15:20)
[2019-03-11] MEDS: Sodium Chloride 0.9% 10 ML Syringe FLUSH PRN ×2 (15:20→22:06)
[2019-03-11] MEDS: Ferrous Sulfate 325 MG Tab **OWN MED PO SCH (15:57)
[2019-03-11] MEDS: Finasteride 5 MG Tab **OWN MED PO SCH (15:57)
[2019-03-11] MEDS: GUAIFENESIN 200 MG PO SCH ×2 (15:57→21:40)
[2019-03-11] MEDS: Metoprolol Tartrate 25 MG Tab **OWN MED PO SCH (15:57)
[2019-03-11] MEDS: APIXABAN 2.5 MG PO SCH ×2 (15:58→21:39)
[2019-03-11] MEDS: DILTIAZEM 180 MG PO SCH (15:59)
[2019-03-11] MEDS: MULTIVITAMINS THERAPEUTIC PO SCH (15:59)
[2019-03-11] MEDS: ALBUTEROL NEB SCH (17:38)
[2019-03-11] MEDS: IPRATROPIUM NEB SCH (17:38)
[2019-03-11] MEDS ORDERED: Formoterol/Mometasone 200-5 MCG 8.8 GM Inhaler IH SCH (18:00)
[2019-03-11] MEDS ORDERED: ZOLPIDEM 5 MG PO SCH (21:00)
[2019-03-11] MEDS ORDERED: Simvastatin 20 MG Tab **OWN MED PO SCH ×2 (21:00→22:45)
[2019-03-11] MEDS: FORMOTEROL INH SCH (21:40)
[2019-03-11] MEDS: BUDESONIDE INH SCH (21:40)
[2019-03-12] MEDS: IPRATROPIUM NEB SCH ×3 (00:17→14:11)
[2019-03-12] MEDS: ALBUTEROL NEB SCH ×3 (00:17→14:11)
[2019-03-12] MEDS: Ferrous Sulfate 325 MG Tab **OWN MED PO SCH ×2 (06:13→11:06)
[2019-03-12] MEDS: BUDESONIDE INH SCH (06:18)
[2019-03-12] MEDS: FORMOTEROL INH SCH (06:18)
[2019-03-12 06:43] LABS: ANION GAP 12.6; CHLORIDE,CL 100 mmol/L (101-111); SODIUM,NA 145 mmol/L (135-145)
[2019-03-12] MEDS ORDERED: Azithromycin 250 MG Tab PO SCH (09:00)
[2019-03-12] MEDS ORDERED: ASCORBIC ACID 500 MG PO SCH (09:00)
[2019-03-12] MEDS: predniSONE 20 MG Tab PO SCH (09:06)
[2019-03-12] MEDS: DILTIAZEM 180 MG PO SCH (09:07)
[2019-03-12] MEDS: Metoprolol Tartrate 25 MG Tab **OWN MED PO SCH (09:08)
[2019-03-12] MEDS: GUAIFENESIN 200 MG PO SCH (09:10)
[2019-03-12] MEDS: APIXABAN 2.5 MG PO SCH (09:10)
[2019-03-12] MEDS: Finasteride 5 MG Tab **OWN MED PO SCH (09:11)
[2019-03-12] MEDS: MULTIVITAMINS THERAPEUTIC PO SCH (09:11)
[2019-03-12] MEDS: Insulin Lispro 100 Units/ML 3 ML Vial SUBCUT SCH ×2 (09:12→12:10)
[2019-03-12] MEDS: Furosemide 40 MG/4 ML VIAL IVPUSH SCH (10:54)
[2019-03-12] MEDS: Furosemide 40 MG Tab PO SCH ×2 (11:36→13:46)
[2019-03-12 13:57] VITALS: BP 106/50
[2019-03-12 14:08] VITALS: PULSE 56
== END 2019-03-12 15:15 ==
LOC: DL.ED 03:40 → DL.MS 07:25
PROVIDERS: ADMIT Hospitalist; ATTEND Hospitalist
DX: I11.0 Hypertensive heart disease with heart failure (principal); I50.9 Heart failure, unspecified; J44.1 Chronic obstructive pulmonary disease with (acute) exacerbation; I48.91 Unspecified atrial fibrillation; E11.9 Type 2 diabetes mellitus without complications; R06.02 Shortness of breath; E66.9 Obesity, unspecified; R22.40 Localized swelling, mass and lump, unspecified lower limb; E78.5 Hyperlipidemia, unspecified; Z79.01 Long term (current) use of anticoagulants; Z91.041 Radiographic dye allergy status; Z79.899 Other long term (current) drug therapy; Z79.84 Long term (current) use of oral hypoglycemic drugs; Z87.891 Personal history of nicotine dependence; Z68.30 Body mass index [BMI] 30.0-30.9, adult
CPT/HCPCS: 36415; 36600; 70450; 71045; 71250; 80048; 80053; 82553; 82803; 82962; 83605; 83880; 84484; 85025; 85027; 87040; 93005; 94640; 96365; 96367; 96375; 97165; 99285; A9270; J0456; J0696; J1815; J1940; J7050; 96366; 96376; 97162-GP; G0378; J7620-GY

== ENCOUNTER 2019-03-13 15:21 | Emergency (ER) | payer MEDICARE, MEDICAID ==
[2019-03-13] MEDS ORDERED: Albuterol/Ipratropium 3.0-0.5 MG/3 ML Neb Soln NEB ONE (15:59)
[2019-03-13 16:31] LABS: ANION GAP 10.4; CHLORIDE,CL 100 mmol/L (101-111); SODIUM,NA 143 mmol/L (135-145)
[2019-03-13 19:07] VITALS: BP 114/64; PULSE 82
--- NOTE | 2019-03-14 07:19 | EDM.PDOC ---
Scribed by Iraida Collazo 03/13/19 0658 for Kacie Mota NP ED HPI GENERAL MEDICAL PROBLEM - General Chief Complaint: Respiratory Problem Stated Complaint: UNK Time Seen by Provider: 03/13/19 15:45 Source of Information: Reports: Patient, RN, RN Notes Reviewed History Limitations: Reports: No Limitations - History of Present Illness INITIAL COMMENTS - FREE TEXT/NARRATIVE: Patient is an 88-year-old patient brought in by [facility] from [facility]. He was discharged from this hospital on 03/12/19. He had diagnosis of CHF, COPD, A-fib on anticoagulation, and diabetes mellitus. He had a chest CT which showed emphysema and a 3.7mm right upper lobe nodule. CT head on 03/11/19 in ER was negative. He has shortness of breath while walking and received a neb at 8 a.m. He had chest pain while sitting in a chair for a few minutes. Onset: Today Duration: Getting Worse Location: Reports: Chest Quality: Reports: Ache Severity: Mild Improves with: Reports: None Worsens with: Reports: None Associated Symptoms: Reports: No Other Symptoms - Related Data Allergies Allergy/AdvReac Type Severity Reaction Status Date / Time Iodinated Contrast Media Allergy Cannot Verified 03/11/19 07:42 [Iodinated Contrast Media - Remember Oral and] Home Meds: Home Meds Ascorbic Acid [Vitamin C] 500 mg PO DAILY 06/26/15 [History] Budesonide/Formoterol [Symbicort 160-4.5 MCG] 2 inh INH BID 06/26/15 [History] Loratadine 10 mg PO DAILY 05/22/16 [History] Multivitamin [Multivitamins] 1 each PO DAILY 05/22/16 [History] Docusate Sodium [Colace] 100 mg PO BID PRN 10/08/18 [History] Finasteride 5 mg PO DAILY 10/08/18 [History] guaiFENesin [Guaifenesin] 200 mg PO TID 10/08/18 [History] metFORMIN [Glucophage] 500 mg PO BID 10/08/18 [History] Apixaban [Eliquis] 2.5 mg PO BID 02/13/19 [History] Ferrous Sulfate [Ferosul] 325 mg PO TID 02/13/19 [History] Furosemide [Lasix] 40 mg PO BID 02/13/19 [History] Metoprolol Tartrate 12.5 mg PO BID 02/13/19 [History] Olopatadine HCl 1 drop OP ASDIRECTED PRN 02/13/19 [History] Zolpidem Tartrate [Ambien] 5 mg PO BEDTIME 02/13/19 [History] Acetaminophen [Tylenol] 325 mg PO Q6H PRN 03/11/19 [History] Albuterol Sulfate 1 inh INH Q6H PRN 03/11/19 [History] Albuterol/Ipratropium [DuoNeb 3.0-0.5 MG/3 ML] 3 ml NEB QID 03/11/19 [History] Bisacodyl [Dulcolax] 5 mg PO DAILY PRN 03/11/19 [History] Clotrimazole [Clotrimazole 1%] 1 applic TOP BID PRN 03/11/19 [History] Diltiazem [Cardizem CD] 180 mg PO DAILY 03/11/19 [History] Simvastatin [Zocor] 10 mg PO BEDTIME 03/11/19 [History] predniSONE [Prednisone] 5 mg PO DAILY 03/11/19 [History] Acetaminophen 650 mg PO BID 03/12/19 [History] Furosemide [Lasix] 40 mg PO BIDDIURETIC #60 tablet 03/12/19 [Rx] Past Medical History HEENT History: Reports: Cataract, Hard of Hearing Cardiovascular History: Reports: Afib, Heart Failure, Heart Murmur, Hypertension , SOB on Exertion Other Cardiovascular History: denies hyt and chf 03-11-19 Respiratory History: Reports: COPD, SOB, Other (See Below) Other Respiratory History: pleural effusion Gastrointestinal History: Reports: Colon Polyp Genitourinary History: Reports: BPH Musculoskeletal History: Reports: Other (See Below) Other Musculoskeletal History: adiposity Neurological History: Reports: None Psychiatric History: Reports: None Endocrine/Metabolic History: Reports: Diabetes, Type II, Obesity/BMI 30+ Hematologic History: Reports: None Immunologic History: Reports: None Oncologic (Cancer) History: Reports: Malignant Melanoma Dermatologic History: Reports: Melanoma Other Dermatologic History: malignant melanoma - denies 03/11/19 - Infectious Disease History Infectious Disease History: Reports: Chicken Pox, Measles, Mumps, Rubella - Past Surgical History Head Surgeries/Procedures: Reports: None HEENT Surgical History: Reports: Cataract Surgery, Other (See Below) Cardiovascular Surgical History: Reports: None Respiratory Surgical History: Reports: None GI Surgical History: Reports: Colonoscopy Endocrine Surgical History: Reports: None Musculoskeletal Surgical History: Reports: None, Other (See Below) Other Musculoskeletal Surgeries/Procedures:: Surgery on left hand Social & Family History - Family History Family Medical History: Noncontributory - Caffeine Use Caffeine Use: Reports: Coffee ED ROS GENERAL - Review of Systems Review Of Systems: ROS reveals no pertinent complaints other than HPI. ED EXAM, GENERAL - Physical Exam Exam: See Below Exam Limited By: No Limitations General Appearance: Alert, WD/WN, No Apparent Distress Eye Exam: Bilateral Eye: EOMI, Normal Inspection, PERRL Ears: Normal External Exam, Normal Canal, Hearing Grossly Normal, Normal TMs Nose: Normal Inspection, Normal Mucosa, No Blood Throat/Mouth: Normal Inspection, Normal Lips, Normal Teeth, Normal Gums, Normal Oropharynx, Normal Voice, No Airway Compromise Head: Atraumatic, Normocephalic Neck: Normal Inspection, Supple, Non-Tender, Full Range of Motion Respiratory/Chest: No Respiratory Distress, Lungs Clear, Normal Breath Sounds, No Accessory Muscle Use, Chest Non-Tender Cardiovascular: Normal Peripheral Pulses, Regular Rate, Rhythm, No Edema, No Gallop, No JVD, No Murmur, No Rub GI/Abdominal: Normal Bowel Sounds, Soft, Non-Tender, No Organomegaly, No Distention, No Abnormal Bruit, No Mass (Male) Exam: Deferred Rectal (Males) Exam: Deferred Back Exam: Normal Inspection, Full Range of Motion, NT Extremities: Normal Inspection, Normal Range of Motion, Non-Tender, Normal Capillary Refill, No Pedal Edema Psychiatric: Normal Affect, Normal Mood Skin Exam: Warm, Dry, Intact, Normal Color, No Rash Course - Vital Signs Last Recorded V/S: Last Vital Signs Temp 36.3 C 03/13/19 18:23 Pulse 82 03/13/19 19:06 Resp 18 03/13/19 19:06 BP 114/64 03/13/19 19:06 Pulse Ox 98 03/13/19 19:06 - Orders/Labs/Meds Orders: Active Orders 24 hr Category Date Time Status EKG 12 Lead [EKG Documentation Completion] [RC] STAT Care 03/13/19 15:59 Active RT Aerosol Therapy [RC] ASDIRECTED Care 03/13/19 15:59 Active Labs: Laboratory Tests 03/13/19 03/13/19 03/13/19 Range/Units 16:04 16:04 18:50 WBC 11.4 H (5.0-10.0) 10^3/uL RBC 4.15 L (4.6-6.2) 10^6/uL Hgb 12.0 L (14.0-18.0) g/dL Hct 39.2 L (40.0-54.0) % MCV 94.5 (80-100) fL MCH 28.9 (27.0-34.0) pg MCHC 30.6 L (33.0-35.0) g/dL Plt Count 268 (150-450) 10^3/uL Neut % (Auto) 66.0 (42.2-75.2) % Lymph % (Auto) 22.8 (20.5-50.1) % [place] % (Auto) 10.2 H (2-8) % Eos % (Auto) 0.4 L (1.0-3.0) % Baso % (Auto) 0.6 (0.0-1.0) % Sodium 143 (135-145) mmol/L Potassium 4.4 (3.6-5.0) mmol/L Chloride 100 L (101-111) mmol/L Carbon Dioxide 37.0 H (21.0-31.0) mmol/L Anion Gap 10.4 BUN 31 H (7-18) mg/dL Creatinine 1.5 H (0.6-1.3) mg/dL Est Cr Clr Drug Dosing 30.75 mL/min Estimated GFR (MDRD) 44 BUN/Creatinine Ratio 20.66 Glucose 123 H (74-105) mg/dL Calcium 8.9 (8.4-10.2) mg/dl Total Bilirubin 0.4 (0.2-1.0) mg/dL AST 27 (10-42) IU/L ALT 42 (10-60) IU/L Alkaline Phosphatase 46 (42-121) IU/L Troponin I < 0.02 < 0.02 (0.00-0.02) ng/ml B-Natriuretic Peptide 223 H (0-100) pg/ml Total Protein 6.1 L (6.7-8.2) g/dl Albumin 3.3 (3.2-5.5) g/dl Globulin 2.8 Albumin/Globulin Ratio 1.18 Meds: Medications Discontinued Medications Generic Name Dose Route Start Last Admin Trade Name Victor M PRN Reason Stop Dose Admin Albuterol/Ipratropium 3 ml 03/13/19 15:59 03/13/19 16:07 Duoneb 3.0-0.5 Mg/3 Ml NEB 03/13/19 16:00 3 ml ONETIME ONE Administration - Re-Assessments/Exams Free Text/Narrative Re-Assessment/Exam: 03/13/19 18:50 Given duoneb in ER and no real SOB observed in the ER. CP was not present in the ER but once at the long term that was lasting only a few minutes. Labs; creat 1.5 but same as previous creat. BNP stable. CBC mild elevation 11.4; but on prednisone. EKG SB with BBB same BBB as previous EKGs and no ST elevation. performed a 2nd troponin and was negative. Feel he is good to go back to long term and to f/u with his PCP. 03/14/19 07:17 Departure - Departure Time of Disposition: 19:15 Disposition: DC/Tfer to SNF 03 Condition: Good Clinical Impression: Chest pain Qualifiers: Chest pain type: unspecified Qualified Code(s): R07.9 - Chest pain, unspecified COPD (chronic obstructive pulmonary disease) Qualifiers: COPD type: emphysema Emphysema type: unspecified Qualified Code(s): J43.9 - Emphysema, unspecified - Discharge Information *PRESCRIPTION DRUG MONITORING PROGRAM REVIEWED*: Not Applicable *COPY OF PRESCRIPTION DRUG MONITORING REPORT IN PATIENT FARRUKH: Not Applicable Instructions: Nonspecific Chest Pain Forms: ED Department Discharge Additional Instructions: Return to [facility]. Negative work up. Follow up with PCP - My Orders Last 24 Hours: My Active Orders 03/13/19 15:59 EKG 12 Lead [EKG Documentation Completion] [RC] STAT RT Aerosol Therapy [RC] ASDIRECTED - Assessment/Plan Last 24 Hours: My Active Orders 03/13/19 15:59 EKG 12 Lead [EKG Documentation Completion] [RC] STAT RT Aerosol Therapy [RC] ASDIRECTED I have read and agree with the documentation that has been completed regarding this visit. By signing this record, I attest that the documentation was completed in my physical presence and is an accurate record of the encounter.
== END 2019-03-13 19:52 ==
LOC: DL.ED 15:21
DX: J43.9 Emphysema, unspecified (principal); R07.9 Chest pain, unspecified; I11.0 Hypertensive heart disease with heart failure; I50.9 Heart failure, unspecified; E11.9 Type 2 diabetes mellitus without complications; E66.9 Obesity, unspecified; Z68.32 Body mass index [BMI] 32.0-32.9, adult; Z91.041 Radiographic dye allergy status; Z79.899 Other long term (current) drug therapy; Z79.51 Long term (current) use of inhaled steroids
CPT/HCPCS: 36415; 80053; 83880; 84484; 85025; 93005; 99285-25; J7620-GY

== ENCOUNTER 2019-03-19 11:18 | Inpatient (IN) | payer MEDICARE, MEDICAID ==
--- NOTE | 2019-03-19 11:57 | EDM.PDOC ---
ED HPI GENERAL MEDICAL PROBLEM - General Chief Complaint: Chest Pain Stated Complaint: SOB Time Seen by Provider: 03/19/19 11:56 Source of Information: Reports: Patient, RN, RN Notes Reviewed History Limitations: Reports: Respiratory Distress - History of Present Illness INITIAL COMMENTS - FREE TEXT/NARRATIVE: Pt to the ER per ambulance from [facility] with c/o SOB and left sided chest pain. Patient has hx of COPD, CHF, atrial fibrillation, diabetes. Patient states he has been having more SOB than usual. Denies fever or chills, N/V/D. Denies radiation of pain. Onset: Gradual Left Middle Chest Pain Score (Numeric/FACES): 4 - Related Data Allergies Allergy/AdvReac Type Severity Reaction Status Date / Time Iodinated Contrast Media Allergy Cannot Verified 03/11/19 07:42 [Iodinated Contrast Media - Remember Oral and] Home Meds: Home Meds Ascorbic Acid [Vitamin C] 500 mg PO DAILY 06/26/15 [History] Budesonide/Formoterol [Symbicort 160-4.5 MCG] 2 inh INH BID 06/26/15 [History] Loratadine 10 mg PO DAILY 05/22/16 [History] Multivitamin [Multivitamins] 1 each PO DAILY 05/22/16 [History] Docusate Sodium [Colace] 100 mg PO BID PRN 10/08/18 [History] Finasteride 5 mg PO DAILY 10/08/18 [History] guaiFENesin [Guaifenesin] 200 mg PO TID 10/08/18 [History] metFORMIN [Glucophage] 500 mg PO BID 10/08/18 [History] Apixaban [Eliquis] 2.5 mg PO BID 02/13/19 [History] Ferrous Sulfate [Ferosul] 325 mg PO TID 02/13/19 [History] Furosemide [Lasix] 40 mg PO BID 02/13/19 [History] Metoprolol Tartrate 12.5 mg PO BID 02/13/19 [History] Olopatadine HCl 1 drop OP ASDIRECTED PRN 02/13/19 [History] Zolpidem Tartrate [Ambien] 5 mg PO BEDTIME 02/13/19 [History] Acetaminophen [Tylenol] 325 mg PO Q6H PRN 03/11/19 [History] Albuterol Sulfate 1 inh INH Q6H PRN 03/11/19 [History] Albuterol/Ipratropium [DuoNeb 3.0-0.5 MG/3 ML] 3 ml NEB QID 03/11/19 [History] Bisacodyl [Dulcolax] 5 mg PO DAILY PRN 03/11/19 [History] Clotrimazole [Clotrimazole 1%] 1 applic TOP BID PRN 03/11/19 [History] Diltiazem [Cardizem CD] 180 mg PO DAILY 03/11/19 [History] Simvastatin [Zocor] 10 mg PO BEDTIME 03/11/19 [History] predniSONE [Prednisone] 5 mg PO DAILY 03/11/19 [History] Acetaminophen 650 mg PO BID 03/12/19 [History] Furosemide [Lasix] 40 mg PO BIDDIURETIC #60 tablet 03/12/19 [Rx] Past Medical History HEENT History: Reports: Cataract, Hard of Hearing Cardiovascular History: Reports: Afib, Heart Failure, Heart Murmur, Hypertension , SOB on Exertion Other Cardiovascular History: denies hyt and chf 03-11-19 Respiratory History: Reports: COPD, SOB, Other (See Below) Other Respiratory History: pleural effusion Gastrointestinal History: Reports: Colon Polyp Genitourinary History: Reports: BPH Musculoskeletal History: Reports: Other (See Below) Other Musculoskeletal History: adiposity Neurological History: Reports: None Psychiatric History: Reports: None Endocrine/Metabolic History: Reports: Diabetes, Type II, Obesity/BMI 30+ Hematologic History: Reports: None Immunologic History: Reports: None Oncologic (Cancer) History: Reports: Malignant Melanoma Dermatologic History: Reports: Melanoma Other Dermatologic History: malignant melanoma - denies 03/11/19 - Infectious Disease History Infectious Disease History: Reports: Chicken Pox, Measles, Mumps, Rubella - Past Surgical History Head Surgeries/Procedures: Reports: None HEENT Surgical History: Reports: Cataract Surgery, Other (See Below) Cardiovascular Surgical History: Reports: None Respiratory Surgical History: Reports: None GI Surgical History: Reports: Colonoscopy Endocrine Surgical History: Reports: None Musculoskeletal Surgical History: Reports: None, Other (See Below) Other Musculoskeletal Surgeries/Procedures:: Surgery on left hand Social & Family History - Family History Family Medical History: Noncontributory - Caffeine Use Caffeine Use: Reports: Coffee ED ROS GENERAL - Review of Systems Review Of Systems: ROS reveals no pertinent complaints other than HPI. ED EXAM, GENERAL - Physical Exam Exam: See Below Exam Limited By: Respiratory Distress General Appearance: Alert, WD/WN, Moderate Distress Eye Exam: Bilateral Eye: EOMI, Normal Inspection Ears: Normal External Exam, Hearing Loss Nose: Normal Inspection Throat/Mouth: Normal Inspection, Normal Voice, No Airway Compromise Head: Atraumatic, Normocephalic Neck: Normal Inspection Respiratory/Chest: Respiratory Distress, Crackles, Wheezing, Other (chest tenderness left anterior ches) Cardiovascular: Irregularly Irregular, Other (atrial fibrillation) Peripheral Pulses: 1+: Radial (L), Radial (R) GI/Abdominal: Soft, Distended (patient states no more distended than usual), Abnormal Bowel Sounds (hypoactive) (Male) Exam: Deferred Rectal (Males) Exam: Deferred Back Exam: Normal Inspection, Decreased Range of Motion Extremities: Normal Inspection, Non-Tender, Pedal Edema, Limited Range of Motion Neurological: Alert, Oriented, CN II-XII Intact, Normal Cognition, Normal Reflexes, No Motor/Sensory Deficits Psychiatric: Normal Affect, Normal Mood, Anxious Skin Exam: Warm, Dry, Intact, Normal Color, No Rash Lymphatic: No Adenopathy Course - Vital Signs Last Recorded V/S: Last Vital Signs Temp 98.1 F 03/19/19 11:44 Pulse 93 03/19/19 12:02 Resp 22 H 03/19/19 11:44 BP 105/79 03/19/19 11:44 Pulse Ox 95 03/19/19 12:02 - Orders/Labs/Meds Orders: Active Orders 24 hr Category Date Time Status RT Aerosol Therapy [RC] ASDIRECTED Care 03/19/19 12:02 Active CULTURE BLOOD [BC] Stat Lab 03/19/19 12:42 Received CULTURE BLOOD [BC] Stat Lab 03/19/19 12:47 Received Azithromycin [Zithromax] 500 mg Med 03/19/19 12:33 Active Sodium Chloride 0.9% [Normal Saline] 250 ml IV ONETIME cefTRIAXone [Rocephin] 1 gm Med 03/19/19 12:30 Active Sodium Chloride 0.9% [Normal Saline] 50 ml IV ONETIME Blood Culture x2 Reflex Set [OM.PC] Stat Oth 03/19/19 12:30 Ordered Medication Orders Azithromycin 500 mg/ Sodium (Chloride) 250 mls @ 250 mls/hr IV ONETIME ONE Stop: 03/19/19 13:32 Ceftriaxone Sodium 1 gm/ (Sodium Chloride) 50 mls @ 50 mls/hr IV ONETIME ONE Stop: 03/19/19 13:29 Last Admin: 03/19/19 13:10 Dose: 50 mls/hr Labs: Laboratory Tests 03/19/19 03/19/19 03/19/19 Range/Units 11:37 11:37 11:37 WBC 10.4 H (5.0-10.0) 10^3/uL RBC 4.19 L (4.6-6.2) 10^6/uL Hgb 12.2 L (14.0-18.0) g/dL Hct 39.3 L (40.0-54.0) % MCV 93.8 (80-100) fL MCH 29.1 (27.0-34.0) pg MCHC 31.0 L (33.0-35.0) g/dL Plt Count 315 (150-450) 10^3/uL Neut % (Auto) 70.8 (42.2-75.2) % Lymph % (Auto) 16.9 L (20.5-50.1) % [place] % (Auto) 10.3 H (2-8) % Eos % (Auto) 1.4 (1.0-3.0) % Baso % (Auto) 0.6 (0.0-1.0) % D-Dimer, Quantitative < 100 (0-400) ng/mL ABG pH (7.35-7.45) ABG pCO2 (35-45) mmHg ABG pO2 (70-100) mmHg ABG HCO3 (22-26) mmol/L ABG O2 Saturation (95-100) % ABG Base Excess ((-2)-(+3)) mmol/L Christos Test O2 Delivery Device Sodium 143 (135-145) mmol/L Potassium 4.3 (3.6-5.0) mmol/L Chloride 102 (101-111) mmol/L Carbon Dioxide 33.0 H (21.0-31.0) mmol/L Anion Gap 12.3 BUN 17 (7-18) mg/dL Creatinine 1.2 (0.6-1.3) mg/dL Est Cr Clr Drug Dosing TNP Estimated GFR (MDRD) 57 BUN/Creatinine Ratio 14.16 Glucose 146 H (74-105) mg/dL Lactic Acid (0.5-2.2) mmol/L Calcium 8.8 (8.4-10.2) mg/dl Total Bilirubin 0.8 (0.2-1.0) mg/dL AST 14 (10-42) IU/L ALT 17 (10-60) IU/L Alkaline Phosphatase 53 (42-121) IU/L Troponin I < 0.02 (0.00-0.02) ng/ml B-Natriuretic Peptide 324 H (0-100) pg/ml Total Protein 5.8 L (6.7-8.2) g/dl Albumin 3.2 (3.2-5.5) g/dl Globulin 2.6 Albumin/Globulin Ratio 1.23 03/19/19 03/19/19 Range/Units 11:55 12:42 WBC (5.0-10.0) 10^3/uL RBC (4.6-6.2) 10^6/uL Hgb (14.0-18.0) g/dL Hct (40.0-54.0) % MCV (80-100) fL MCH (27.0-34.0) pg MCHC (33.0-35.0) g/dL Plt Count (150-450) 10^3/uL Neut % (Auto) (42.2-75.2) % Lymph % (Auto) (20.5-50.1) % [place] % (Auto) (2-8) % Eos % (Auto) (1.0-3.0) % Baso % (Auto) (0.0-1.0) % D-Dimer, Quantitative (0-400) ng/mL ABG pH 7.39 (7.35-7.45) ABG pCO2 52 H (35-45) mmHg ABG pO2 73 (70-100) mmHg ABG HCO3 30.8 H (22-26) mmol/L ABG O2 Saturation 94 L (95-100) % ABG Base Excess 5 H ((-2)-(+3)) mmol/L Christos Test Performed O2 Delivery Device Nasal cannula Sodium (135-145) mmol/L Potassium (3.6-5.0) mmol/L Chloride (101-111) mmol/L Carbon Dioxide (21.0-31.0) mmol/L Anion Gap BUN (7-18) mg/dL Creatinine (0.6-1.3) mg/dL Est Cr Clr Drug Dosing Estimated GFR (MDRD) BUN/Creatinine Ratio Glucose (74-105) mg/dL Lactic Acid 2.3 H (0.5-2.2) mmol/L Calcium (8.4-10.2) mg/dl Total Bilirubin (0.2-1.0) mg/dL AST (10-42) IU/L ALT (10-60) IU/L Alkaline Phosphatase (42-121) IU/L Troponin I (0.00-0.02) ng/ml B-Natriuretic Peptide (0-100) pg/ml Total Protein (6.7-8.2) g/dl Albumin (3.2-5.5) g/dl Globulin Albumin/Globulin Ratio Meds: Medications Generic Name Dose Route Start Last Admin Trade Name Freq PRN Reason Stop Dose Admin Azithromycin 500 mg/ Sodium 250 mls @ 250 mls/hr 03/19/19 12:33 Chloride IV 03/19/19 13:32 ONETIME ONE Ceftriaxone Sodium 1 gm/ 50 mls @ 50 mls/hr 03/19/19 12:30 03/19/19 13:10 Sodium Chloride IV 03/19/19 13:29 50 mls/hr ONETIME ONE Administration Discontinued Medications Generic Name Dose Route Start Last Admin Trade Name Freq PRN Reason Stop Dose Admin Albuterol/Ipratropium 3 ml 03/19/19 12:02 03/19/19 12:07 Duoneb 3.0-0.5 Mg/3 Ml NEB 03/19/19 12:03 3 ml ONETIME ONE Administration - Radiology Interpretation Free Text/Narrative:: Chest xray: Chronic abnormalities right lung base with suggestion possible new right middle lobe aspiration. See rad report - Re-Assessments/Exams Free Text/Narrative Re-Assessment/Exam: 03/19/19 13:27 Discussed patient case with Dr. Tejada who agreed to accept the patient for inpatient admission. Departure - Departure Time of Disposition: 12:34 Disposition: Admitted As Inpatient 68 Condition: Fair Clinical Impression: Pneumonia Qualifiers: Pneumonia type: due to unspecified organism Laterality: right Lung location: lower lobe of lung Qualified Code(s): J18.1 - Lobar pneumonia, unspecified organism Type 2 diabetes mellitus without complications Qualifiers: Diabetes mellitus fpc insulin use: without fpc use Qualified Code(s ): E11.9 - Type 2 diabetes mellitus without complications COPD (chronic obstructive pulmonary disease) Qualifiers: COPD type: emphysema Emphysema type: unspecified Qualified Code(s): J43.9 - Emphysema, unspecified CHF (congestive heart failure) Qualifiers: Heart failure type: unspecified Heart failure chronicity: acute on chronic Qualified Code(s): I50.9 - Heart failure, unspecified Atrial fibrillation Qualifiers: Atrial fibrillation type: chronic Qualified Code(s): I48.2 - Chronic atrial fibrillation - My Orders Last 24 Hours: My Active Orders 03/19/19 12:02 RT Aerosol Therapy [RC] ASDIRECTED 03/19/19 12:30 cefTRIAXone [Rocephin] 1 gm Sodium Chloride 0.9% [Normal Saline] 50 ml IV ONETIME Blood Culture x2 Reflex Set [OM.PC] Stat 03/19/19 12:33 Azithromycin [Zithromax] 500 mg Sodium Chloride 0.9% [Normal Saline] 250 ml IV ONETIME 03/19/19 12:42 CULTURE BLOOD [BC] Stat 03/19/19 12:47 CULTURE BLOOD [BC] Stat - Assessment/Plan Last 24 Hours: My Active Orders 03/19/19 12:02 RT Aerosol Therapy [RC] ASDIRECTED 03/19/19 12:30 cefTRIAXone [Rocephin] 1 gm Sodium Chloride 0.9% [Normal Saline] 50 ml IV ONETIME Blood Culture x2 Reflex Set [OM.PC] Stat 03/19/19 12:33 Azithromycin [Zithromax] 500 mg Sodium Chloride 0.9% [Normal Saline] 250 ml IV ONETIME 03/19/19 12:42 CULTURE BLOOD [BC] Stat 03/19/19 12:47 CULTURE BLOOD [BC] Stat
[2019-03-19 11:59] LABS: BASE EXCESS ARTERIAL 5 mmol/L ((-2)-(+3)); BICARBONATE,ARTERIAL 30.8 mmol/L (22-26); O2 DELIVERY DEVICE NASAL CANNULA; O2 SATURATION ARTERIAL 94 % (95-100); PCO2 ARTERIAL 52 mmHg (35-45); PO2 ARTERIAL 73 mmHg (70-100)
[2019-03-19 12:00] LABS: ALLEN TEST PERFORMED
[2019-03-19] MEDS ORDERED: Albuterol/Ipratropium 3.0-0.5 MG/3 ML Neb Soln NEB ONE (12:02)
[2019-03-19 12:06] LABS: ANION GAP 12.3; CHLORIDE,CL 102 mmol/L (101-111); SODIUM,NA 143 mmol/L (135-145)
--- NOTE | 2019-03-19 12:07 | CR ---
EXAMINATION: Chest 1V Frontal SEX: Male AGE: 88 years CLINICAL HISTORY: 88-year-old male complaining of shortness of breath. Comparison exams 11 March and 13 February. INTERPRETATION: 1. Abnormal. Chronic right middle lobe consolidation and pleural parenchymal scarring right base. Increased silhouetting the right heart border suggesting additional middle lobe consolidation. Clinical aspiration? Technique (patient ROTATION)? 2. Cardiac size remains unchanged. No new cephalization of flow, alveolar edema or dependent pleural fluid accumulation. 3. No new lung mass or hilar lymphadenopathy. 4. No other focal lobar infiltrate or atelectasis. 5. No pneumothorax. CONCLUSION: Chronic abnormalities right lung base with suggestion possible new right middle lobe aspiration. Clinical? No new signs of heart failure, lung mass or other focal lobar infiltrate since 11 March and 13 February films.
[2019-03-19] MEDS ORDERED: cefTRIAXone 1 GM in Sodium Chloride 0.9% 50 ML IV ONE (12:30)
[2019-03-19] MEDS ORDERED: Azithromycin 500 MG in Sodium Chloride 0.9% 250 ML IV ONE ×2 (12:33→14:00)
[2019-03-19] MEDS ORDERED: Ondansetron 4 MG/2 ML SDV IVPUSH PRN (13:58)
[2019-03-19] MEDS ORDERED: Polyethylene Glycol 3350 Powder 17 GM Packet PO PRN (13:58)
[2019-03-19] MEDS ORDERED: Docusate Sodium 100 MG Cap PO PRN ×2 (13:58→14:01)
[2019-03-19] MEDS ORDERED: Bisacodyl 5 MG Tab PO PRN (14:01)
[2019-03-19] MEDS ORDERED: Clotrimazole 1% Crm 30 GM Tube TOP PRN (14:01)
--- NOTE | 2019-03-19 15:01 | HP ---
CHIEF COMPLAINT: Increasing shortness of breath. HISTORY OF PRESENTING ILLNESS: Mr. Rodger Nettles is an 88-year-old male with medical history significant for hypertension; hyperlipidemia; coronary artery disease, status post stents placed as per the patient; history of chronic congestive heart failure; chronic obstructive pulmonary airway disease; chronic hypoxic respiratory failure, requiring home oxygen, who presented to the ER with complaints of increasing shortness of breath and noted to be in acute CHF exacerbation, acute COPD exacerbation with underlying pneumonia, needing admission to the hospital. At this time, the patient claims that he was apparently normal at his baseline function until yesterday. This morning, he had been increasingly short of breath. He grades the shortness of breath as 6/10 in intensity, aggravated on exertion, relieved with rest. Not associated with any chest pain. Denies any fevers or chills in the last few days. No complaints of cough with sputum in the last few days. No complaints of abdominal pain. No complaints of nausea, vomiting, or diarrhea in the last few days. The patient denied any history of chest pains on exertion, but has dyspnea on exertion. No history of orthopnea or paroxysmal nocturnal dyspnea. The patient denied any history of hematemesis, hematochezia, or melenic stools. Normal bowel and bladder habits otherwise. REVIEW OF SYSTEMS: A complete review of system including skin, ear, nose, and throat, cardiovascular system, respiratory system, gastrointestinal system, genitourinary system, hematology, oncology, neurology, allergy, immunology, constitutional were all evaluated and were negative except for the above-said notes. PAST MEDICAL HISTORY: Significant for hypertension, hyperlipidemia, coronary artery disease, chronic congestive heart failure, chronic obstructive pulmonary airway disease, chronic hypoxic respiratory failure, history of squamous cell carcinoma of the lip, history of melanoma, emphysema. PAST SURGICAL HISTORY: Significant for cyst removal. FAMILY HISTORY: Significant for heart disease in his father and brothers with heart disease who are all . SOCIAL HISTORY: The patient had remote history of smoking tobacco, but quit smoking many years back. Had history of alcohol intake in the past, but quit drinking alcohol many years back. ALLERGIES: The patient is allergic to iodine, contrast dye. HOME MEDICATIONS: Include prednisone 5 mg daily, metformin 500 mg twice a day, guaifenesin 200 mg 3 times a day, Ambien 5 mg at bedtime, simvastatin 10 mg at bedtime, multivitamin 1 tablet daily, metoprolol 12.5 mg twice a day, loratadine 10 mg daily, Lasix 40 mg twice a day, finasteride 5 mg daily, ferrous sulfate 325 mg 3 times a day, docusate sodium 100 mg twice a day as needed, diltiazem 180 mg daily, bisacodyl 5 mg daily as needed, vitamin C 500 mg daily, Eliquis 2.5 mg twice a day, DuoNeb nebulizer 4 times a day, Tylenol 325 mg every 6 hours as needed. PHYSICAL EXAMINATION: Vitals: Temperature of 98.1, pulse of 115, blood pressure of 105/79, respiratory rate of 22, saturating at 95% on 2 L of oxygen. General Appearance: The patient is well oriented to time, place, and person. Follows commands spontaneously. Cardiovascular System: S1, S2 heard with normal intensity. No gallops. Respiratory System: Bilateral crepitations noted, mostly at the bases on the right lower lobe. Mild wheeze. Abdomen: Soft. Bowel sounds positive. Nontender. No rigidity. Extremities: 2+ edema at bilateral lower extremities. Neurology: No gross focal neurological deficit. LABORATORY DATA: 1. WBC 10.4, hemoglobin 12.2, hematocrit 39.3, platelet count 315. 2. Sodium 143, potassium 4.3, chloride 102, bicarb 33, BUN 17, creatinine 1.2, glucose 146. Lactic acid 2.3. Total bilirubin 0.8, AST 14, ALT 17, alkaline phosphatase 53. Troponins less than 0.02. BNP 324. ASSESSMENT: 1. Pneumonia. 2. Acute on chronic congestive heart failure with diastolic dysfunction. Recent echocardiogram shows ejection fraction 50% to 55%. 3. Acute chronic obstructive pulmonary disease exacerbation. 4. Chronic hypoxic respiratory failure. 5. Possible sepsis. 6. Hypertension. 7. Hyperlipidemia. 8. Coronary artery disease. 9. Type 2 diabetes mellitus. 10.Obesity. PLAN: 1. Pneumonia. The patient presents with increasing shortness of breath. Chest x-ray shows chronic lung changes, but superimposed with acute infiltrates, consistent with pneumonia. We will have speech and swallow evaluation done. We will start him on IV antibiotic with ceftriaxone and Zithromax. Obtain sputum cultures, blood cultures, and we will closely follow. 2. Possible sepsis. The patient noted to be tachycardia, tachypneic, leukocytosis. Consistent with possible sepsis. Follow serial lactic acid level. Initial lactic acid level seems to be high. Closely follow. 3. Acute on chronic congestive heart failure. The patient noted to have crepitations bilaterally, more so on the right lower lobe. Congestion to the chest x-ray and also elevated BNP. We will start him on IV Lasix. Closely monitor input, output, and daily weights. 4. Acute COPD exacerbation. We will start him on DuoNeb and Pulmicort nebulizer. Start him on IV methylprednisone. The patient will be encouraged to use incentive spirometer and flutter valve for better pulmonary toileting. 5. Hypertension. The patient's blood pressure seems to be in acceptable range. Continue with current antihypertensive medication. 6. Type 2 diabetes mellitus. Check his fingersticks with each meals. Have him on correctional dose of insulin and try to avoid any hypoglycemic episodes. Have him on hypoglycemic protocol. 7. DVT prophylaxis. He is currently on chronic anticoagulation with Eliquis. Continue the same. 8. Code status. The patient wants to be DNR/DNI. We discussed with [facility] staff, regarding the plan of care. Reviewed the labs and medications. Reviewed the old charts. [facility] /[id number]
[2019-03-19] MEDS: Budesonide 0.5 MG/2 ML Neb Susp NEB SCH ×2 (15:10→18:13)
[2019-03-19] MEDS: Albuterol 0.083% 2.5 MG/3 ML Neb Soln INH PRN (15:32)
[2019-03-19] MEDS: Acetaminophen 325 MG Tab PO PRN (15:55)
[2019-03-19] MEDS: methylPREDNISolone Sodium Succinate 40 MG/1 ML SDV IVPUSH SCH ×2 (15:58→21:53)
[2019-03-19] MEDS: Sodium Chloride 0.9% 10 ML Syringe FLUSH SCH ×2 (16:13→21:53)
[2019-03-19] MEDS: Furosemide 100 MG/10 ML SDV IVPUSH SCH ×2 (16:15→21:42)
[2019-03-19] MEDS: Albuterol/Ipratropium 3.0-0.5 MG/3 ML Neb Soln NEB SCH ×2 (18:04→21:23)
[2019-03-19] MEDS ORDERED: Zolpidem 5 MG Tab PO SCH (21:00)
[2019-03-19] MEDS ORDERED: Non-Formulary Medication 1 Each (Budesonide/Formoterol 2 INH) INH SCH (21:00)
[2019-03-19] MEDS ORDERED: Non-Formulary Medication 1 Each (Apixaban [Eliquis] 2.5 MG) PO SCH (21:00)
[2019-03-19] MEDS: Simvastatin 10 MG Tab PO SCH (21:42)
[2019-03-19] MEDS: Ferrous Sulfate 325 MG Tab PO SCH (21:42)
[2019-03-19] MEDS: Acetaminophen 325 MG Tab PO SCH (21:43)
[2019-03-19] MEDS: Metoprolol Tartrate 25 MG Tab PO SCH (21:43)
[2019-03-19] MEDS: guaiFENesin 100 MG/5 ML Soln 5 ML UD Cup PO SCH (21:48)
[2019-03-19] MEDS: APIXABAN 5 MG PO SCH (21:48)
[2019-03-19] MEDS: [UNRECOGNIZED DRUG - OTHER] PO SCH (21:48)
[2019-03-20 01:12] LABS: BASE EXCESS ARTERIAL -7 mmol/L ((-2)-(+3)); BICARBONATE,ARTERIAL 16.9 mmol/L (22-26); O2 DELIVERY DEVICE NASAL CANNULA; O2 SATURATION ARTERIAL 95 % (95-100); PCO2 ARTERIAL 29 mmHg (35-45); PO2 ARTERIAL 78 mmHg (70-100)
[2019-03-20 01:14] LABS: ALLEN TEST PERFORMED
[2019-03-20] MEDS ORDERED: Sodium Bicarbonate 8.4% 50 MEQ/50 ML Syringe IVPUSH ONE (01:24)
[2019-03-20 01:26] LABS: ANION GAP 20.8
[2019-03-20] MEDS ORDERED: Sodium Bicarbonate 8.4% 50 MEQ/50 ML SDV ONE (01:56)
[2019-03-20] MEDS: methylPREDNISolone Sodium Succinate 40 MG/1 ML SDV IVPUSH SCH ×3 (06:02→22:37)
[2019-03-20] MEDS: Sodium Chloride 0.9% 10 ML Syringe FLUSH SCH (06:02)
[2019-03-20 06:57] LABS: ANION GAP 14.3; CHLORIDE,CL 99 mmol/L (101-111); SODIUM,NA 143 mmol/L (135-145)
[2019-03-20] MEDS: Budesonide 0.5 MG/2 ML Neb Susp NEB SCH ×2 (07:52→17:43)
[2019-03-20] MEDS: Albuterol/Ipratropium 3.0-0.5 MG/3 ML Neb Soln NEB SCH ×4 (07:52→21:06)
[2019-03-20] MEDS ORDERED: Furosemide 100 MG/10 ML SDV IVPUSH SCH (08:00)
[2019-03-20] MEDS: Ascorbic Acid 500 MG Tab PO SCH (08:41)
[2019-03-20] MEDS: Loratadine 10 MG Tab PO SCH (08:41)
[2019-03-20] MEDS: Multivitamins,Therapeutic Tab PO SCH (08:41)
[2019-03-20] MEDS: Ferrous Sulfate 325 MG Tab PO SCH ×3 (08:42→21:08)
[2019-03-20] MEDS: Finasteride 5 MG Tab PO SCH (08:42)
[2019-03-20] MEDS: Acetaminophen 325 MG Tab PO SCH ×2 (08:42→21:07)
[2019-03-20] MEDS: Metoprolol Tartrate 25 MG Tab PO SCH ×2 (08:42→21:17)
[2019-03-20] MEDS: guaiFENesin 100 MG/5 ML Soln 5 ML UD Cup PO SCH ×3 (08:43→21:09)
[2019-03-20] MEDS: Diltiazem 180 MG Cap.CD PO SCH (08:43)
[2019-03-20] MEDS: APIXABAN 5 MG PO SCH ×2 (09:05→21:11)
[2019-03-20] MEDS: [UNRECOGNIZED DRUG - OTHER] PO SCH ×2 (09:05→21:11)
[2019-03-20] MEDS: cefTRIAXone 1 GM in Sodium Chloride 0.9% 50 ML IV SCH (12:48)
[2019-03-20] MEDS ORDERED: 50% Dextrose in Water 50 ML Syringe IVPUSH PRN (13:08)
[2019-03-20] MEDS: Azithromycin 500 MG in Sodium Chloride 0.9% 250 ML IV SCH (13:56)
--- NOTE | 2019-03-20 14:04 | PN ---
DATE: 03/20/2019 SUBJECTIVE: Mr. Rodger Nettles is an 88-year-old male with a medical history significant for hypertension, hyperlipidemia, coronary artery disease status post stents placed in the past, history of chronic congestive heart failure, chronic obstructive pulmonary disease, chronic hypoxic respiratory failure requiring home oxygen, admitted to the hospital with complaints of increasing shortness of breath and noted to have right-sided pneumonia along with CHF exacerbation and COPD exacerbation. For the last 24 hours, the patient was started on IV Lasix and also nebulizer treatment. This morning, his symptoms seems to be improved. He denies any ongoing chest pain. Mild shortness of breath, aggravated on exertion, relieved with rest. Not associated with any nausea or vomiting. No diarrhea. No abdominal pain. REVIEW OF SYSTEMS: Cardiovascular, respiratory, gastrointestinal, neurology, constitutional were all evaluated. PHYSICAL EXAMINATION: Vital Signs: Temperature of 96.6, pulse of 96, blood pressure 138/97, respiratory rate of 20, saturating at 92% on 2 L of oxygen. General Appearance: The patient is well-oriented to time, place, and person. Follows commands spontaneously. Cardiovascular System: S1, S2 heard with normal intensity. Respiratory System: Bilateral crepitations positive, most at the bases. Mild wheeze. Abdomen: Soft. Bowel sounds positive. Nontender. No rigidity. No guarding. No rebound tenderness. Extremities: Mild edema in bilateral lower extremities, improved from the time of admission. MEDICATIONS: Reviewed. Continue with Tylenol 325 every 6 hours as needed for pain and fever, DuoNeb 4 times a day, Zithromax IV daily, Pulmicort twice a day nebulizer, ceftriaxone 1 g daily, diltiazem 180 mg daily, ferrous sulfate 325 mg 3 times a day, Proscar 5 mg daily, Lasix 40 mg IV q.12 hourly from tomorrow, Solu-Medrol 40 mg IV q.8 hourly, Eliquis 2.5 mg twice a day, MiraLax 17 g daily, Ambien 5 mg at bedtime. LABORATORY DATA: WBC 11, hemoglobin 12.2, hematocrit 39.3, platelet count 336. Sodium 143, potassium 4.3, chloride 99, bicarb 34, BUN 24, creatinine 1.1, glucose 180. Lactic acid 2.4. Microbiology: Blood culture shows no growth so far. ASSESSMENT: 1. Pneumonia. 2. Acute chronic obstructive pulmonary disease exacerbation. 3. Acute on chronic congestive heart failure with diastolic dysfunction. 4. Sepsis with lactic acidosis. 5. Chronic hypoxic respiratory failure. 6. Hypertension. 7. Hyperlipidemia. 8. Type 2 diabetes mellitus. 9. Coronary artery disease. PLAN: 1. Pneumonia. The patient was admitted with increasing shortness of breath. Chest x-ray shows evidence of right lower lobe and middle lobe pneumonia. The patient is started on IV antibiotic ceftriaxone and Zithromax. So far his cultures remain negative. We will continue with current IV antibiotic regimen. 2. Acute on chronic congestive heart failure. The patient had good ejection fraction in the past with EF of 50% to 55% with diastolic dysfunction. He is started on Lasix 60 mg IV q.12 hourly. He is noted to have contraction alkalosis, so we will decrease the Lasix to 40 mg twice a day. Closely monitor input, output, and daily weight. He had lost 3 pounds after getting admitted to the hospital. 3. Sepsis with lactic acidosis. The patient continues to have elevated lactic acid level. This could be resulting from both pneumonia and also from congestive heart failure with decreased cardiac output, so we will be cautious regarding fluid management. Try to maintain the euvolemic status. We will follow serial lactic acid levels. 4. Acute chronic obstructive pulmonary disease exacerbation. Continue the nebulizer with Pulmicort and DuoNeb nebulizer, have him on IV methylprednisone. The patient is encouraged to use incentive spirometer and flutter valve for better pulmonary toileting. 5. Chronic hypoxic respiratory failure. Continue with supplemental oxygen to maintain a saturation of 95%. 6. Hypertension, be cautious. Continue with current oral antihypertensive medication. Try to avoid any hypotensive episode. 7. Type 2 diabetes mellitus. The patient is currently on insulin regimen. Check his fingersticks with each meals. Have him on supplemental scale insulin as needed for additional coverage of his blood glucose. [facility] /[id number]
[2019-03-20] MEDS: Insulin Lispro 100 Units/ML 3 ML Vial SUBCUT SCH ×2 (17:42→21:17)
[2019-03-20] MEDS: Acetaminophen 325 MG Tab PO PRN (18:15)
[2019-03-20] MEDS: Simvastatin 10 MG Tab PO SCH (21:08)
[2019-03-20] MEDS: Zolpidem 5 MG Tab PO SCH (22:37)
[2019-03-21] MEDS: Albuterol 0.083% 2.5 MG/3 ML Neb Soln INH PRN (04:20)
[2019-03-21] MEDS: methylPREDNISolone Sodium Succinate 40 MG/1 ML SDV IVPUSH SCH ×2 (05:34→17:04)
[2019-03-21] MEDS: Sodium Chloride 0.9% 10 ML Syringe FLUSH SCH ×2 (05:34→22:43)
[2019-03-21] MEDS: Budesonide 0.5 MG/2 ML Neb Susp NEB SCH ×3 (07:08→17:05)
[2019-03-21] MEDS: Albuterol/Ipratropium 3.0-0.5 MG/3 ML Neb Soln NEB SCH ×4 (07:08→22:05)
[2019-03-21 07:31] LABS: ANION GAP 15.3; CHLORIDE,CL 96 mmol/L (101-111); SODIUM,NA 139 mmol/L (135-145)
[2019-03-21] MEDS ORDERED: Furosemide 40 MG/4 ML VIAL IVPUSH SCH (08:00)
[2019-03-21] MEDS: Diltiazem 180 MG Cap.CD PO SCH (08:35)
[2019-03-21] MEDS: guaiFENesin 100 MG/5 ML Soln 5 ML UD Cup PO SCH ×3 (08:35→22:04)
[2019-03-21] MEDS: Ferrous Sulfate 325 MG Tab PO SCH ×3 (08:36→22:02)
[2019-03-21] MEDS: Metoprolol Tartrate 25 MG Tab PO SCH ×2 (08:36→22:29)
[2019-03-21] MEDS: Acetaminophen 325 MG Tab PO SCH ×2 (08:36→22:00)
[2019-03-21] MEDS: Finasteride 5 MG Tab PO SCH (08:36)
[2019-03-21] MEDS: Multivitamins,Therapeutic Tab PO SCH (08:36)
[2019-03-21] MEDS: Ascorbic Acid 500 MG Tab PO SCH (08:36)
[2019-03-21] MEDS: Loratadine 10 MG Tab PO SCH (08:37)
[2019-03-21] MEDS: [UNRECOGNIZED DRUG - OTHER] PO SCH ×2 (08:37→22:03)
[2019-03-21] MEDS: APIXABAN 5 MG PO SCH ×2 (08:37→22:03)
[2019-03-21] MEDS: Insulin Lispro 100 Units/ML 3 ML Vial SUBCUT SCH ×4 (08:38→22:36)
[2019-03-21] MEDS ORDERED: acetaZOLAMIDE 250 MG Tab PO ONE (12:00)
[2019-03-21] MEDS: cefTRIAXone 1 GM in Sodium Chloride 0.9% 50 ML IV SCH (13:13)
[2019-03-21] MEDS ORDERED: Furosemide 40 MG Tab PO SCH (14:00)
[2019-03-21 14:04] LABS: O2 DELIVERY DEVICE NASAL CANNULA
[2019-03-21 14:05] LABS: O2 FLOW RATE 2
[2019-03-21 14:08] LABS: PH,VENOUS 7.39 (7.31-7.41)
--- NOTE | 2019-03-21 14:08 | PN ---
DATE: 03/21/2019 HISTORY OF PRESENT ILLNESS: Mr. Rodger Nettles is an 88-year-old male with medical history significant for hypertension, hyperlipidemia, coronary artery disease, status post stents placed in the past, chronic congestive heart failure, chronic obstructive pulmonary disease, chronic hypoxic respiratory failure requiring home oxygen, admitted with increasing shortness of breath, noted to have right-sided pneumonia along with CHF exacerbation and COPD exacerbation. For the last 24 hours, the shortness of breath has much improved. He continues to be on nasal cannula oxygen. He denies any chest pain. No shortness of breath. No abdominal pain. No nausea. No vomiting. No diarrhea. REVIEW OF SYSTEMS: Cardiovascular, respiratory, gastrointestinal, neurology, and constitutional were all evaluated. PHYSICAL EXAMINATION: Vitals Signs: Temperature of 96.4, pulse of 85, blood pressure of 111/87, respiratory rate of 20, and saturating at 92% on 2.5 L of oxygen. General Appearance: The patient is well oriented to time, place, and person. Follows commands spontaneously. Cardiovascular System: S1, S2 heard with normal intensity. No gallops. Respiratory System: Mild crepitations at the bases. No wheeze. Abdomen: Soft. Bowel sounds positive. Nontender. No rigidity. Extremities: Mild edema bilateral lower extremities. MEDICATIONS: Reviewed. Continue with: 1. DuoNeb 4 times a day. 2. Ascorbic acid 500 mg daily. 3. Zithromax 500 mg IV daily. 4. Pulmicort twice a day 0.5 mg. 5. Ceftriaxone 1 g daily. 6. Diltiazem 180 mg daily. 7. Proscar 5 mg daily. 8. Lasix changed to 40 mg twice a day oral. 9. Methylprednisone changed to 20 mg IV q.12 hourly. 10.Metoprolol 12.5 mg twice a day. 11.Ambien 5 mg at bedtime. LABORATORY DATA: Labs reviewed. WBC 16.8, hemoglobin 12.1, hematocrit 38.9, platelet count 362. Sodium 139, potassium 4.3, chloride 96, bicarb 32, BUN 32, creatinine 1.1, glucose 208. Lactic acid 4.4. ASSESSMENT: 1. Pneumonia. 2. Acute chronic obstructive pulmonary disease exacerbation. 3. Acute on chronic congestive heart failure with diastolic dysfunction. 4. Possible sepsis with lactic acidosis. 5. Chronic hypoxic respiratory failure. 6. Hypertension. 7. Hyperlipidemia. 8. Type 2 diabetes mellitus. 9. Coronary artery disease. PLAN: 1. Pneumonia. Patient was admitted with pneumonia, is currently on IV antibiotic of ceftriaxone, Zithromax. So far his cultures remained negative. Continue with current IV antibiotic regimen. 2. Acute on chronic congestive heart failure, much improved. He did receive IV Lasix. We will change him to oral Lasix at this time. We will closely monitor input, output, and daily weight. 3. Sepsis with lactic acidosis. He continues to have lactic acidosis, unsure if this is resulting from congestive heart failure versus sepsis. We will get a venous oxygen level. We will get a venous blood gas analysis, and we will look for venous oxygen, which could guide us to see if there is any decreased cardiac output versus any tissue level hypoxia. 4. Acute COPD exacerbation. The patient is currently on nebulizer treatment. We will continue to step down on the steroids, change the IV methylprednisone to 20 mg twice a day. 5. Chronic hypoxic respiratory failure. Continue with supplemental oxygen to maintain a saturation of 95%. 6. Hypertension, well controlled. Continue with current antihypertensive medication. 7. Type 2 diabetes mellitus, uncontrolled. Could be resulting from steroid use. Continue with current insulin regimen. Check his fingersticks with each meals. Have him on correction dose insulin as needed to optimize the blood sugars. 8. DVT prophylaxis. The patient has been on chronic anticoagulation with Eliquis. Continue the same. [facility] /[id number]
[2019-03-21 14:10] LABS: O2 SATURATION VENOUS 59 % (60-80); PCO2 VENOUS 55 mmHg (41-51); PO2 VENOUS 32 mmHg (35-42)
[2019-03-21 14:11] LABS: BASE EXCESS VENOUS 9 mmol/l ((-2)-(+3)); BICARBONATE,VENOUS 34 mmol/l (19-25)
[2019-03-21] MEDS: Azithromycin 500 MG in Sodium Chloride 0.9% 250 ML IV SCH (14:33)
[2019-03-21] MEDS: Acetaminophen 325 MG Tab PO PRN (15:34)
[2019-03-21] MEDS: Simvastatin 10 MG Tab PO SCH (22:02)
[2019-03-21] MEDS: Zolpidem 5 MG Tab PO SCH (22:30)
[2019-03-22] MEDS: Sodium Chloride 0.9% 10 ML Syringe FLUSH SCH ×4 (05:22→14:50)
[2019-03-22] MEDS: methylPREDNISolone Sodium Succinate 40 MG/1 ML SDV IVPUSH SCH (05:23)
[2019-03-22 06:45] LABS: ANION GAP 14.1
[2019-03-22] MEDS: Albuterol/Ipratropium 3.0-0.5 MG/3 ML Neb Soln NEB SCH ×4 (07:39→21:53)
[2019-03-22] MEDS: Budesonide 0.5 MG/2 ML Neb Susp NEB SCH ×2 (07:40→17:22)
[2019-03-22] MEDS: Diltiazem 180 MG Cap.CD PO SCH (08:17)
[2019-03-22] MEDS: Metoprolol Tartrate 25 MG Tab PO SCH ×2 (08:17→21:51)
[2019-03-22] MEDS: Ascorbic Acid 500 MG Tab PO SCH (08:17)
[2019-03-22] MEDS: Multivitamins,Therapeutic Tab PO SCH (08:18)
[2019-03-22] MEDS: Ferrous Sulfate 325 MG Tab PO SCH ×3 (08:19→21:51)
[2019-03-22] MEDS: guaiFENesin 100 MG/5 ML Soln 5 ML UD Cup PO SCH ×3 (08:19→21:51)
[2019-03-22] MEDS: Loratadine 10 MG Tab PO SCH (08:19)
[2019-03-22] MEDS: APIXABAN 5 MG PO SCH ×2 (08:20→21:53)
[2019-03-22] MEDS: [UNRECOGNIZED DRUG - OTHER] PO SCH ×2 (08:20→21:53)
[2019-03-22] MEDS: Finasteride 5 MG Tab PO SCH (08:21)
[2019-03-22] MEDS: Insulin Lispro 100 Units/ML 3 ML Vial SUBCUT SCH ×4 (08:23→21:51)
[2019-03-22] MEDS: Acetaminophen 325 MG Tab PO SCH ×2 (08:25→21:51)
[2019-03-22] MEDS: cefTRIAXone 1 GM in Sodium Chloride 0.9% 50 ML IV SCH (13:09)
--- NOTE | 2019-03-22 13:44 | PN ---
DATE: 03/22/2019 HISTORY OF PRESENT ILLNESS: Mr. Rodger Nettles is an 88-year-old male with a medical history significant for hypertension, hyperlipidemia, coronary artery disease, chronic congestive heart failure, chronic obstructive pulmonary disease, chronic hypoxic respiratory failure requiring home oxygen, admitted with increasing shortness of breath. Noted to have right-sided pneumonia along with CHF exacerbation and COPD exacerbation. For the last 24 hours, the patient continues to be on nasal cannula oxygen. He denies any chest pain. Shortness of breath is mild in nature, improved from admission. Denies any abdominal pain. No nausea. No vomiting. No diarrhea. REVIEW OF SYSTEMS: Cardiovascular, respiratory, gastrointestinal, neurology, and constitutional were all evaluated. PHYSICAL EXAMINATION: Vital Signs: Temperature 97, pulse of 96, blood pressure of 128/73, respiratory rate of 20, saturating at 100% on 2.5 L of oxygen. General Appearance: The patient is well oriented to time, place, and person. Follows commands spontaneously. Cardiovascular System: S1, S2 heard with normal intensity. No gallops. Respiratory System: Bilateral wheeze noted, mostly at the bases. Mild crepitations at the bases. Abdomen: Soft. Bowel sounds positive. Nontender. No rigidity. Extremities: Mild edema in bilateral lower extremities. MEDICATIONS: Reviewed. Continue with DuoNeb and Pulmicort nebulizer. Continue with ceftriaxone and Zithromax. Continue with diltiazem 180 mg daily and metoprolol 12.5 mg twice a day. Change the Lasix to 40 mg twice a day. Change the steroids to prednisone oral 20 mg daily. Continue simvastatin 10 mg at bedtime. LABORATORY DATA: Reviewed. WBC 16.5, hemoglobin 11.9, hematocrit 37.9, platelet count 336. Sodium 140, potassium 4.1, chloride 101, bicarb 29, BUN 38, creatinine 1.4, glucose 212. Lactic acid 2.4, improved from 4.4 yesterday. Magnesium 2.6. ASSESSMENT: 1. Pneumonia. 2. Acute on chronic congestive heart failure with diastolic dysfunction, ejection fraction of 55%. 3. Acute chronic obstructive pulmonary disease exacerbation. 4. Acute on chronic hypoxic respiratory failure. 5. Lactic acidosis. 6. Possible sepsis. 7. Hypertension. 8. Hyperlipidemia. 9. Type 2 diabetes mellitus. 10.Coronary artery disease. PLAN: 1. Pneumonia. The patient is currently on IV antibiotics with ceftriaxone and Zithromax. So for, his cultures remained negative. We will switch him to oral antibiotic at the time of discharge. 2. Acute on chronic congestive heart failure. The patient has been receiving IV Lasix. We will switch him to oral Lasix and closely monitor input, output, and daily weights. He was noted to have contraction alkalosis, so we had to step down on the Lasix. 3. Lactic acidosis. This is mainly from poor oxygenation as his venous blood gas analysis showed decreased VO2 to 32, so we increased his oxygen supply to 2.5 to 3 L. His lactic acidosis seems to be improving. Continue with supplemental oxygen to maintain a saturation of 97%. 4. Hypertension, well controlled. Continue with current antihypertensive medications. 5. Type 2 diabetes mellitus, uncontrolled. Noted to have elevated blood sugars. This is mainly from steroid dosing. Switch him to oral prednisone. Continue with supplemental scale/correction dose insulin as needed to optimize his blood sugars. Try to keep his blood sugar less than 180. [facility] /[id number]
--- NOTE | 2019-03-22 14:22 | CR ---
EXAMINATION: Chest 1V Frontal SEX: Male AGE: 88 years CLINICAL HISTORY: 88-year-old male emergency department with cough. INTERPRETATION: 1. Chronic cardiomegaly and generalized mild venous congestion/cephalization without new alveolar edema or dependent pleural fluid accumulation (subtle decreased venous congestion since 11 March 2019 exam). 2. No new lung mass or hilar lymphadenopathy. 3. No new focal lobar consolidation (infiltrate, atelectasis or collapse). 4. No pneumothorax. CONCLUSION: Abnormal but slightly less congested than on 11 March film (no change since 19 March 2019).
[2019-03-22] MEDS: Azithromycin 500 MG in Sodium Chloride 0.9% 250 ML IV SCH (14:50)
[2019-03-22] MEDS: Furosemide 40 MG Tab PO SCH (14:54)
[2019-03-22] MEDS: Acetaminophen 325 MG Tab PO PRN (18:30)
[2019-03-22] MEDS: Simvastatin 10 MG Tab PO SCH (21:51)
[2019-03-22] MEDS: Zolpidem 5 MG Tab PO SCH (21:51)
[2019-03-23] MEDS: Albuterol 0.083% 2.5 MG/3 ML Neb Soln INH PRN (02:16)
[2019-03-23] MEDS: Albuterol/Ipratropium 3.0-0.5 MG/3 ML Neb Soln NEB SCH ×4 (07:36→21:30)
[2019-03-23] MEDS: Budesonide 0.5 MG/2 ML Neb Susp NEB SCH ×3 (07:36→17:37)
[2019-03-23] MEDS ORDERED: predniSONE 20 MG Tab PO SCH (08:00)
[2019-03-23] MEDS: Insulin Lispro 100 Units/ML 3 ML Vial SUBCUT SCH ×4 (08:12→21:34)
[2019-03-23] MEDS: Loratadine 10 MG Tab PO SCH (08:14)
[2019-03-23] MEDS: Ascorbic Acid 500 MG Tab PO SCH (08:14)
[2019-03-23] MEDS: Ferrous Sulfate 325 MG Tab PO SCH ×3 (08:14→21:31)
[2019-03-23] MEDS: Multivitamins,Therapeutic Tab PO SCH (08:14)
[2019-03-23] MEDS: Diltiazem 180 MG Cap.CD PO SCH (08:14)
[2019-03-23] MEDS: Finasteride 5 MG Tab PO SCH (08:14)
[2019-03-23] MEDS: Furosemide 40 MG Tab PO SCH (08:14)
[2019-03-23] MEDS: Metoprolol Tartrate 25 MG Tab PO SCH ×2 (08:15→21:32)
[2019-03-23] MEDS: Acetaminophen 325 MG Tab PO SCH ×2 (08:16→21:31)
[2019-03-23] MEDS: guaiFENesin 100 MG/5 ML Soln 5 ML UD Cup PO SCH ×3 (08:18→21:30)
[2019-03-23] MEDS: [UNRECOGNIZED DRUG - OTHER] PO SCH ×2 (08:19→21:36)
[2019-03-23] MEDS: APIXABAN 5 MG PO SCH ×2 (08:19→21:36)
[2019-03-23] MEDS: Bumetanide 1 MG Tab PO SCH (12:57)
[2019-03-23] MEDS: cefTRIAXone 1 GM in Sodium Chloride 0.9% 50 ML IV SCH (12:57)
[2019-03-23] MEDS: Sodium Chloride 0.9% 10 ML Syringe FLUSH SCH (13:00)
--- NOTE | 2019-03-23 13:56 | PN ---
DATE: 03/23/2019 SUBJECTIVE: Mr. Rodger Nettles is an 88-year-old male with a medical history significant for hypertension, hyperlipidemia, coronary artery disease, chronic congestive heart failure, chronic obstructive pulmonary disease, chronic hypoxic respiratory failure requiring home oxygen, admitted with increasing shortness of breath, noted to have acute COPD exacerbation, acute CHF exacerbation, and right - sided pneumonia. For the last 24 hours, the patient continues to be on nasal cannula oxygen. We have been titrating up the oxygen to maintain a saturation of 97%. He denies any ongoing chest pain. He continues to have mild shortness of breath aggravated on exertion, relieved with rest. Denies any fevers or chills. REVIEW OF SYSTEMS: Cardiovascular, respiratory, gastrointestinal, neurology, constitutional were all evaluated. PHYSICAL EXAMINATION: Vital Signs: Temperature of 97.6, pulse of 79, blood pressure of 101/73, respiratory rate of 20, saturating at 98% on 2 L of oxygen. General Appearance: The patient is well oriented to time, place, and person. Follows commands spontaneously. Cardiovascular System: S1 and S2 heard with normal intensity. No gallops. Respiratory System: Bilateral wheeze noted. Minimal crepitations at the base. Abdomen: Soft. Bowel sounds positive. Nontender. No rigidity. Extremities: Mild edema in bilateral lower extremities. MEDICATIONS: Reviewed. Continue with DuoNeb and Pulmicort nebulizer. Continue with IV ceftriaxone. Hold the IV Zithromax. Change the diuretic to Bumex 1 mg twice a day, diltiazem 180 mg daily, metoprolol 12.5 mg twice a day, prednisone 20 mg daily, simvastatin 10 mg at bedtime, and Ambien 5 mg at bedtime as needed. LABORATORY DATA: Reviewed. WBC 15.8, hemoglobin 12.5, hematocrit 40.6, platelet count 305. Sodium 141, potassium 4, chloride 101, bicarb 33, BUN 38, creatinine 1.3, glucose 256. ASSESSMENT: 1. Pneumonia, much improved. Repeat chest x-ray shows resolution of infiltrates. The patient is currently on IV ceftriaxone. He has been treated with IV Zithromax. We will hold the Zithromax for now. We will recheck a procalcitonin level in a.m. So far, his cultures remain negative. 2. Acute on chronic congestive heart failure. The patient continues to have crepitations. Chest x-ray still suggestive of pulmonary venous congestion. We will change the diuretic to Bumex as he is not responding well to the Lasix. We will have him on oral Bumex 1 mg twice a day and dose adjusted appropriately for better diuresis. 3. Lactic acidosis. This is mainly from hypoxia. His VBG showed VO2 of 32. This has improved with increased oxygenation. Try to maintain saturations around 98%. Continue supplemental oxygen. 4. Chronic obstructive pulmonary disease with acute exacerbation. The patient has been on nebulizer treatment with DuoNeb and Pulmicort nebulizer. We have been tapering down the steroid. He still continues to have mild wheeze, so we will increase the prednisone to 40 mg daily. 5. Hypertension. The patient noted to have lower blood pressures, noted to be on beta-nabil and calcium channel nabil. We will closely follow. Try to avoid any hypotensive episodes. 6. Type 2 diabetes mellitus, uncontrolled. This is mainly from steroid dosing. He is on insulin regimen. Continue with correction dose insulin as needed. Try to avoid any hypoglycemic episodes. 7. Acute on chronic hypoxic respiratory failure. Continue with supplemental oxygen to maintain a saturation of 95%. 8. Possible sepsis, resolved. [facility] /[id number] RAIZA
[2019-03-23] MEDS: methylPREDNISolone Sodium Succinate 40 MG/1 ML SDV IVPUSH SCH (21:30)
[2019-03-23] MEDS: Heparin Sodium 5,000 Units/ML Vial SUBCUT SCH (21:30)
[2019-03-23] MEDS: Simvastatin 10 MG Tab PO SCH (21:31)
[2019-03-23] MEDS: Zolpidem 5 MG Tab PO SCH (21:31)
[2019-03-24] MEDS: methylPREDNISolone Sodium Succinate 40 MG/1 ML SDV IVPUSH SCH (05:45)
[2019-03-24] MEDS: Albuterol/Ipratropium 3.0-0.5 MG/3 ML Neb Soln NEB SCH (07:14)
[2019-03-24] MEDS: Budesonide 0.5 MG/2 ML Neb Susp NEB SCH (07:14)
[2019-03-24 07:15] LABS: ANION GAP 13.5; CHLORIDE,CL 99 mmol/L (101-111); SODIUM,NA 139 mmol/L (135-145)
[2019-03-24 08:02] VITALS: BP 112/70; PULSE 89
[2019-03-24] MEDS: Metoprolol Tartrate 25 MG Tab PO SCH (08:11)
[2019-03-24] MEDS: Ascorbic Acid 500 MG Tab PO SCH (08:11)
[2019-03-24] MEDS: Multivitamins,Therapeutic Tab PO SCH (08:12)
[2019-03-24] MEDS: Loratadine 10 MG Tab PO SCH (08:12)
[2019-03-24] MEDS: guaiFENesin 100 MG/5 ML Soln 5 ML UD Cup PO SCH (08:12)
[2019-03-24] MEDS: Finasteride 5 MG Tab PO SCH (08:12)
[2019-03-24] MEDS: Bumetanide 1 MG Tab PO SCH (08:12)
[2019-03-24] MEDS: Acetaminophen 325 MG Tab PO SCH (08:12)
[2019-03-24] MEDS: Diltiazem 180 MG Cap.CD PO SCH (08:12)
[2019-03-24] MEDS: [UNRECOGNIZED DRUG - OTHER] PO SCH (08:13)
[2019-03-24] MEDS: APIXABAN 5 MG PO SCH (08:13)
[2019-03-24] MEDS: Heparin Sodium 5,000 Units/ML Vial SUBCUT SCH (08:13)
[2019-03-24] MEDS: Ferrous Sulfate 325 MG Tab PO SCH (08:14)
[2019-03-24] MEDS: Insulin Lispro 100 Units/ML 3 ML Vial SUBCUT SCH (09:37)
--- NOTE | 2019-03-24 11:33 | PN ---
DATE: 03/24/2019 SUBJECTIVE: The patient is an 88-year-old male with history of COPD, CHF, and chronic hypoxic respiratory failure who was admitted with increasing shortness of breath and noted to have pneumonia and COPD exacerbation and CHF exacerbation, and he was started on IV Lasix, and he has responded well with good diuresis, and yesterday, the patient still had some wheezing, so the patient was given Solu-Medrol 40 mg IV q.8 hours, and this morning he is feeling much better. The patient mentioned that he is ready to go back to the [facility] today. He mentioned that he is back to his baseline. He denies any chest pain. Denies any worsening of shortness of breath, orthopnea, PND, abdominal pain, or any other complaints. LABORATORY DATA: Lab workup this morning: CBC: WBC is 13.5, hemoglobin is 12.5, hematocrit is 40.6, and platelet is 302. Chem-6: Chloride of 99, BUN of 36, and glucose is 301. OBJECTIVE: Vital Signs: Blood pressure is 112/70, pulse is 84, respiration of 20, and saturation is 99% on 2 L per nasal cannula. Heart: Regular rate and rhythm. No gallops. No rubs. Lungs: Have diminished breath sounds on both bases but no significant crackles. No wheezing. Abdomen: Moderately obese, soft, and nontender. Bowel sounds positive. Extremities: Remarkable for trace bilateral pedal edema. No calf tenderness. PLAN: We will discharge the patient home today back to the [facility], and we will continue with oral antibiotics. We will increase his Lasix to 60 mg twice a day, and we will continue with prednisone 40 mg daily until followup with his primary care physician. CONDITION ON DISCHARGE: Improved. [facility] /[id number]
--- NOTE | 2019-03-24 14:34 | DISCH ---
FINAL DIAGNOSES: 1. Pneumonia. 2. Congestive heart failure exacerbation. 3. Chronic obstructive pulmonary disease exacerbation. 4. Chronic hypoxic respiratory failure, O2 dependent. 5. Hypertension. 6. Hyperlipidemia. 7. Coronary artery disease. 8. Type 2 diabetes mellitus. BRIEF HISTORY OF PRESENT ILLNESS: Please see H and P. LABORATORY AND IMAGING DATA: Pertinent lab, x-ray, and other tests on admission, see H and P. HOSPITAL COURSE: The patient was admitted to General Medicine floor. He was started on IV antibiotics (Rocephin IV). He was given IV Lasix and continued on his home medication and he responded well to the above regimen. IV Lasix was changed to oral Bumex. He also continued to have diuresis. During the hospitalization, he continued to have some wheezing and he was given IV Solu- Medrol, which improved his wheezing. Rest of the hospital course was unremarkable, and he was subsequently discharged back to [facility]). CONDITION ON DISCHARGE: Improved. DISCHARGE INSTRUCTIONS: The patient is going to follow up with Dr. Wolff in 1 week. DISCHARGE MEDICATIONS: The patient will be on Augmentin 875 mg b.i.d. for the next 7 days and prednisone 40 mg daily for the next 1 week, and we will increase his Lasix to 60 mg b.i.d., and he will be continuing the rest of his home medications. [facility] /[id number]
== END 2019-03-24 10:28 | DRG 871 ==
LOC: DL.ED 11:18 → DL.MS 12:59 → UNDOADMIN 12:59
PROVIDERS: ADMIT Internal Medicine; ATTEND Internal Medicine
DX: A41.9 Sepsis, unspecified organism (principal); J18.9 Pneumonia, unspecified organism; J96.21 Acute and chronic respiratory failure with hypoxia; I50.33 Acute on chronic diastolic (congestive) heart failure; J44.1 Chronic obstructive pulmonary disease with (acute) exacerbation; J44.0 Chronic obstructive pulmonary disease with (acute) lower respiratory infection; E87.2 Acidosis; I11.0 Hypertensive heart disease with heart failure; Z66 Do not resuscitate; E78.5 Hyperlipidemia, unspecified; I25.10 Atherosclerotic heart disease of native coronary artery without angina pectoris; E66.9 Obesity, unspecified; I48.91 Unspecified atrial fibrillation; E11.65 Type 2 diabetes mellitus with hyperglycemia; Z23 Encounter for immunization; Z68.33 Body mass index [BMI] 33.0-33.9, adult; Z95.5 Presence of coronary angioplasty implant and graft; Z85.819 Personal history of malignant neoplasm of unspecified site of lip, oral cavity, and pharynx; Z85.820 Personal history of malignant melanoma of skin; Z87.891 Personal history of nicotine dependence; Z88.8 Allergy status to other drugs, medicaments and biological substances; Z91.041 Radiographic dye allergy status; Z79.899 Other long term (current) drug therapy; Z79.84 Long term (current) use of oral hypoglycemic drugs; Z79.52 Long term (current) use of systemic steroids; Z86.010 Personal history of colon polyps; Z98.49 Cataract extraction status, unspecified eye
CPT/HCPCS: 36415; 36600; 71045; 80048; 80053; 81001; 82803; 82962; 83605; 83735; 83880; 84145; 84484; 85025; 85027; 85379; 87040; 87070; 87077; 87186; 87205; 93005; 94010; 94640; 94667; 97116-GP; 97161-GP; 99284; 99285-25; A9270-GY; J0456; J0696; J1644; J1815; J1940; J2920; J7050; J7613-GY; J7620-GY

== ENCOUNTER 2019-04-05 14:03 | Inpatient (IN) | payer MEDICARE, MEDICAID ==
[2019-04-05] MEDS ORDERED: Albuterol/Ipratropium 3.0-0.5 MG/3 ML Neb Soln NEB ONE (14:48)
--- NOTE | 2019-04-05 14:54 | EDM.PDOC ---
ED HPI GENERAL MEDICAL PROBLEM - General Chief Complaint: Respiratory Problem Stated Complaint: CHEST HURTS PER PT Time Seen by Provider: 04/05/19 14:15 Source of Information: Reports: Patient, Alf Records, RN, RN Notes Reviewed History Limitations: Reports: Respiratory Distress - History of Present Illness INITIAL COMMENTS - FREE TEXT/NARRATIVE: Pt to ER with c/o chest pains and increased SOB. Patient states he was hospitalized in February and transferred to the [facility] [place]. States he resides at the [facility]. States he has been SOB for the past few weeks but this morning has been the worse. Denies any fever or chills, N/V/D. Onset: Today Duration: Constant Location: Reports: Chest Chest Pain Score (Numeric/FACES): 6 - Related Data Allergies Allergy/AdvReac Type Severity Reaction Status Date / Time Iodinated Contrast Media Allergy Cannot Verified 03/11/19 07:42 [Iodinated Contrast Media - Remember Oral and] Home Meds: Home Meds Budesonide/Formoterol [Symbicort 160-4.5 MCG] 2 inh INH BID 06/26/15 [History] Loratadine 10 mg PO DAILY 05/22/16 [History] Multivitamin [Multivitamins] 1 each PO DAILY 05/22/16 [History] Docusate Sodium [Colace] 100 mg PO BID PRN 10/08/18 [History] Finasteride 5 mg PO DAILY 10/08/18 [History] guaiFENesin [Guaifenesin] 200 mg PO TID 10/08/18 [History] metFORMIN [Glucophage] 500 mg PO BID 10/08/18 [History] Apixaban [Eliquis] 5 mg PO BID 02/13/19 [History] Ferrous Sulfate [Ferosul] 325 mg PO TID 02/13/19 [History] Metoprolol Tartrate 12.5 mg PO BID 02/13/19 [History] Olopatadine HCl 1 drop OP ASDIRECTED PRN 02/13/19 [History] Zolpidem Tartrate [Ambien] 5 mg PO BEDTIME 02/13/19 [History] Acetaminophen [Tylenol] 325 mg PO Q6H PRN 03/11/19 [History] Albuterol Sulfate 1 inh INH Q6H PRN 03/11/19 [History] Albuterol/Ipratropium [DuoNeb 3.0-0.5 MG/3 ML] 3 ml NEB QID 03/11/19 [History] Bisacodyl [Dulcolax] 5 mg PO DAILY PRN 03/11/19 [History] Clotrimazole [Clotrimazole 1%] 1 applic TOP BID PRN 03/11/19 [History] Diltiazem [Cardizem CD] 180 mg PO DAILY 03/11/19 [History] Simvastatin [Zocor] 10 mg PO BEDTIME 03/11/19 [History] predniSONE [Prednisone] 5 mg PO DAILY 03/11/19 [History] Acetaminophen 650 mg PO BID 03/12/19 [History] Budesonide [Pulmicort] 0.5 mg NEB BIDRT neb 03/24/19 [Rx] Furosemide [Lasix] 60 mg PO BID #30 tab 03/24/19 [Rx] hydrOXYzine HCl [hydrOXYzine] 25 mg PO Q8HR PRN 04/05/19 [History] metOLazone [Zaroxolyn] 1.25 mg PO ASDIRECTED 04/05/19 [History] Past Medical History HEENT History: Reports: Cataract, Hard of Hearing Cardiovascular History: Reports: Afib, Heart Failure, Heart Murmur, Hypertension , SOB on Exertion Other Cardiovascular History: denies hyt and chf 03-11-19 Respiratory History: Reports: COPD, SOB, Other (See Below) Other Respiratory History: pleural effusion Gastrointestinal History: Reports: Colon Polyp Genitourinary History: Reports: BPH Musculoskeletal History: Reports: Other (See Below) Other Musculoskeletal History: adiposity Neurological History: Reports: None Psychiatric History: Reports: None Endocrine/Metabolic History: Reports: Diabetes, Type II, Obesity/BMI 30+ Hematologic History: Reports: None Immunologic History: Reports: None Oncologic (Cancer) History: Reports: Malignant Melanoma Dermatologic History: Reports: Melanoma Other Dermatologic History: malignant melanoma - denies 03/11/19 - Infectious Disease History Infectious Disease History: Reports: Chicken Pox, Measles, Mumps, Rubella - Past Surgical History Head Surgeries/Procedures: Reports: None HEENT Surgical History: Reports: Cataract Surgery, Other (See Below) Cardiovascular Surgical History: Reports: None Respiratory Surgical History: Reports: None GI Surgical History: Reports: Colonoscopy Endocrine Surgical History: Reports: None Musculoskeletal Surgical History: Reports: None, Other (See Below) Other Musculoskeletal Surgeries/Procedures:: Surgery on left hand Social & Family History - Family History Family Medical History: Noncontributory - Tobacco Use Smoking Status *Q: Never Smoker Second Hand Smoke Exposure: No - Caffeine Use Caffeine Use: Reports: Coffee - Recreational Drug Use Recreational Drug Use: No ED ROS GENERAL - Review of Systems Review Of Systems: ROS reveals no pertinent complaints other than HPI. ED EXAM, GENERAL - Physical Exam Exam: See Below Exam Limited By: Respiratory Distress General Appearance: Alert, WD/WN, Moderate Distress, Obese Eye Exam: Bilateral Eye: EOMI, Normal Inspection Ears: Normal External Exam, Hearing Loss Nose: Normal Inspection Throat/Mouth: Normal Inspection, Normal Voice, No Airway Compromise Head: Atraumatic, Normocephalic Neck: Normal Inspection, Supple, Non-Tender, Full Range of Motion Respiratory/Chest: Respiratory Distress, Decreased Breath Sounds, Crackles ( bases), Wheezing Cardiovascular: Irregularly Irregular, Other (trace pedal edema) Peripheral Pulses: 1+: Radial (L), Radial (R) GI/Abdominal: Normal Bowel Sounds, Soft, Non-Tender, Distended (Male) Exam: Deferred Rectal (Males) Exam: Deferred Back Exam: Normal Inspection, Decreased Range of Motion Extremities: Normal Inspection, Non-Tender, Normal Capillary Refill, Pedal Edema (trace), Limited Range of Motion Neurological: Alert, Oriented, Normal Cognition, No Motor/Sensory Deficits Psychiatric: Anxious Skin Exam: Warm, Dry, Intact, No Rash, Pallor Lymphatic: No Adenopathy Course - Vital Signs Last Recorded V/S: Last Vital Signs Temp 97 F 04/05/19 14:15 Pulse 107 H 04/05/19 14:48 Resp 28 H 04/05/19 14:15 BP 115/98 H 04/05/19 14:15 Pulse Ox 94 L 04/05/19 14:48 - Orders/Labs/Meds Orders: Active Orders 24 hr Category Date Time Status EKG Documentation Completion [RC] STAT Care 04/05/19 14:23 Active Peripheral IV Care [RC] . DIRECTED Care 04/05/19 14:23 Active RT Aerosol Therapy [RC] ASDIRECTED Care 04/05/19 14:48 Active CULTURE BLOOD [BC] Stat Lab 04/05/19 15:34 Received CULTURE BLOOD [BC] Stat Lab 04/05/19 15:40 Received Levofloxacin/Dextrose 5%-Water [Levaquin in D5W 500 MG/ Med 04/05/19 16:42 Active 100 ML] 500 mg Premix Bag 1 bag IV ONETIME Sodium Chloride 0.9% [Saline Flush] Med 04/05/19 14:23 Active 10 ml FLUSH ASDIRECTED PRN Blood Culture x2 Reflex Set [OM.PC] Stat Oth 04/05/19 15:21 Ordered Peripheral IV Insertion Adult [OM.PC] Stat Oth 04/05/19 14:23 Ordered Medication Orders Levofloxacin/Dextrose 500 mg/ (Premix) 100 mls @ 100 mls/hr IV ONETIME ONE Stop: 04/05/19 17:41 Sodium Chloride (Saline Flush) 10 ml FLUSH ASDIRECTED PRN PRN Reason: Keep Vein Open Last Admin: 04/05/19 15:07 Dose: 10 ml Labs: Laboratory Tests 04/05/19 04/05/19 04/05/19 Range/Units 14:49 14:49 14:49 WBC 20.7 H (5.0-10.0) 10^3/uL RBC 4.97 (4.6-6.2) 10^6/uL Hgb 14.5 D (14.0-18.0) g/dL Hct 45.5 (40.0-54.0) % MCV 91.5 D (80-100) fL MCH 29.2 (27.0-34.0) pg MCHC 31.9 L (33.0-35.0) g/dL Plt Count 221 D (150-450) 10^3/uL Lymph % (Auto) 7.3 L (20.5-50.1) % [place] % (Auto) 6.5 (2-8) % Eos % (Auto) 0.4 L (1.0-3.0) % Add Manual Diff Yes Neutrophils % (Manual) 81 H (42-75) % Band Neutrophils % 1 % Lymphocytes % (Manual) 12 L (20-50) % Monocytes % (Manual) 6 (2-8) % Giant Platelets Rare PT 11.5 (9.0-12.0) SEC INR 1.1 (0.9-1.2) Sodium 140 (135-145) mmol/L Potassium 3.6 (3.6-5.0) mmol/L Chloride 90 L (101-111) mmol/L Carbon Dioxide 36.0 H (21.0-31.0) mmol/L Anion Gap 17.6 BUN 27 H (7-18) mg/dL Creatinine 1.7 H (0.6-1.3) mg/dL Est Cr Clr Drug Dosing 27.13 mL/min Estimated GFR (MDRD) 38 BUN/Creatinine Ratio 15.88 Glucose 155 H (74-105) mg/dL Lactic Acid (0.5-2.2) mmol/L Calcium 9.2 (8.4-10.2) mg/dl Total Bilirubin 1.0 (0.2-1.0) mg/dL AST 16 (10-42) IU/L ALT 20 (10-60) IU/L Alkaline Phosphatase 50 (42-121) IU/L Troponin I < 0.02 (0.00-0.02) ng/ml B-Natriuretic Peptide 342 H (0-100) pg/ml Total Protein 6.5 L (6.7-8.2) g/dl Albumin 3.4 (3.2-5.5) g/dl Globulin 3.1 Albumin/Globulin Ratio 1.10 10/14/19 Range/Units 15:34 WBC (5.0-10.0) 10^3/uL RBC (4.6-6.2) 10^6/uL Hgb (14.0-18.0) g/dL Hct (40.0-54.0) % MCV (80-100) fL MCH (27.0-34.0) pg MCHC (33.0-35.0) g/dL Plt Count (150-450) 10^3/uL Lymph % (Auto) (20.5-50.1) % [place] % (Auto) (2-8) % Eos % (Auto) (1.0-3.0) % Add Manual Diff Neutrophils % (Manual) (42-75) % Band Neutrophils % % Lymphocytes % (Manual) (20-50) % Monocytes % (Manual) (2-8) % Giant Platelets PT (9.0-12.0) SEC INR (0.9-1.2) Sodium (135-145) mmol/L Potassium (3.6-5.0) mmol/L Chloride (101-111) mmol/L Carbon Dioxide (21.0-31.0) mmol/L Anion Gap BUN (7-18) mg/dL Creatinine (0.6-1.3) mg/dL Est Cr Clr Drug Dosing mL/min Estimated GFR (MDRD) BUN/Creatinine Ratio Glucose (74-105) mg/dL Lactic Acid 2.0 (0.5-2.2) mmol/L Calcium (8.4-10.2) mg/dl Total Bilirubin (0.2-1.0) mg/dL AST (10-42) IU/L ALT (10-60) IU/L Alkaline Phosphatase (42-121) IU/L Troponin I (0.00-0.02) ng/ml B-Natriuretic Peptide (0-100) pg/ml Total Protein (6.7-8.2) g/dl Albumin (3.2-5.5) g/dl Globulin Albumin/Globulin Ratio Meds: Medications Generic Name Dose Route Start Last Admin Trade Name Freq PRN Reason Stop Dose Admin Levofloxacin/Dextrose 500 mg/ 100 mls @ 100 mls/hr 04/05/19 16:42 Premix IV 04/05/19 17:41 ONETIME ONE Sodium Chloride 10 ml 04/05/19 14:23 04/05/19 15:07 Saline Flush FLUSH 10 ml ASDIRECTED PRN Administration Keep Vein Open Discontinued Medications Generic Name Dose Route Start Last Admin Trade Name Freq PRN Reason Stop Dose Admin Albuterol/Ipratropium 3 ml 04/05/19 14:48 04/05/19 14:56 Duoneb 3.0-0.5 Mg/3 Ml NEB 04/05/19 14:49 3 ml ONETIME ONE Administration - Radiology Interpretation Free Text/Narrative:: Chest xray: Chronic cardiomegaly, generalized mild venous congestion and dependent right pleural effusion as noted on comparison AP film March 22, 2019 (pulmonary vascularity more congested then on March 19. Conclusion is chronic CHF. See rad report. See rad report - Re-Assessments/Exams Free Text/Narrative Re-Assessment/Exam: 04/05/19 16:47 Discussed patient case with Dr. Jaimes at the [facility] in [place] who states the patient may go to the [facility] in [place], but due to the length of ambulance drive, he could be admitted her if he would prefer. Then discussed patient case with Dr. Gold who agreed to accept the patient for inpatient admission. Departure - Departure Time of Disposition: 16:49 Disposition: Admitted As Inpatient 68 Condition: Fair Clinical Impression: Pneumonia Qualifiers: Pneumonia type: due to unspecified organism Laterality: right Lung location: lower lobe of lung Qualified Code(s): J18.1 - Lobar pneumonia, unspecified organism CHF (congestive heart failure) Qualifiers: Heart failure type: unspecified Heart failure chronicity: acute on chronic Qualified Code(s): I50.9 - Heart failure, unspecified COPD (chronic obstructive pulmonary disease) Qualifiers: COPD type: emphysema Emphysema type: unspecified Qualified Code(s): J43.9 - Emphysema, unspecified - Discharge Information *PRESCRIPTION DRUG MONITORING PROGRAM REVIEWED*: No *COPY OF PRESCRIPTION DRUG MONITORING REPORT IN PATIENT FARRUKH: No Forms: ED Department Discharge - My Orders Last 24 Hours: My Active Orders 04/05/19 14:23 EKG Documentation Completion [RC] STAT Peripheral IV Care [RC] . DIRECTED Sodium Chloride 0.9% [Saline Flush] 10 ml FLUSH ASDIRECTED PRN Peripheral IV Insertion Adult [OM.PC] Stat 04/05/19 14:48 RT Aerosol Therapy [RC] ASDIRECTED 04/05/19 15:21 Blood Culture x2 Reflex Set [OM.PC] Stat 04/05/19 15:34 CULTURE BLOOD [BC] Stat 04/05/19 15:40 CULTURE BLOOD [BC] Stat 04/05/19 16:42 Levofloxacin/Dextrose 5%-Water [Levaquin in D5W 500 MG/100 ML] 500 mg Premix Bag 1 bag IV ONETIME - Assessment/Plan Last 24 Hours: My Active Orders 04/05/19 14:23 EKG Documentation Completion [RC] STAT Peripheral IV Care [RC] . DIRECTED Sodium Chloride 0.9% [Saline Flush] 10 ml FLUSH ASDIRECTED PRN Peripheral IV Insertion Adult [OM.PC] Stat 04/05/19 14:48 RT Aerosol Therapy [RC] ASDIRECTED 04/05/19 15:21 Blood Culture x2 Reflex Set [OM.PC] Stat 04/05/19 15:34 CULTURE BLOOD [BC] Stat 04/05/19 15:40 CULTURE BLOOD [BC] Stat 04/05/19 16:42 Levofloxacin/Dextrose 5%-Water [Levaquin in D5W 500 MG/100 ML] 500 mg Premix Bag 1 bag IV ONETIME
[2019-04-05] MEDS: Sodium Chloride 0.9% 10 ML Syringe FLUSH PRN ×2 (15:07→17:12)
[2019-04-05 15:16] LABS: ANION GAP 17.6; CHLORIDE,CL 90 mmol/L (101-111); SODIUM,NA 140 mmol/L (135-145)
--- NOTE | 2019-04-05 15:30 | CR ---
EXAMINATION: Chest 1V Frontal SEX: Male AGE: 88 years CLINICAL HISTORY: 88-year-old obese male complaining of chest pain. INTERPRETATION: 1. Chronic cardiomegaly, generalized mild venous congestion and dependent right pleural effusion as noted on comparison AP film 22 March 2019 (pulmonary vascularity more congested than on 19 March). 2. No new lung mass, hilar lymphadenopathy or underlying focal lobar consolidation. No atelectasis/collapse. 3. No pneumothorax or free subdiaphragmatic air.. CONCLUSION: Chronic CHF. (BNP? Weight? EKG?)
[2019-04-05] MEDS ORDERED: Levofloxacin/Dextrose 5%-Water 500 MG in Premix Bag 1 BAG IV ONE (16:42)
[2019-04-05] MEDS ORDERED: Albuterol 0.083% 2.5 MG/3 ML Neb Soln INH PRN (17:46)
[2019-04-05] MEDS ORDERED: OLOPATADINE HCL OP PRN (17:46)
[2019-04-05] MEDS ORDERED: Bisacodyl 5 MG Tab PO PRN (17:46)
[2019-04-05] MEDS ORDERED: Clotrimazole 1% Crm 30 GM Tube TOP PRN (17:46)
[2019-04-05] MEDS ORDERED: Docusate Sodium 100 MG Cap PO PRN (17:46)
[2019-04-05] MEDS ORDERED: Acetaminophen 325 MG Tab PO PRN (17:46)
--- NOTE | 2019-04-05 17:52 | PCM.HP ---
H&P History of Present Illness - General Date of Service: 04/05/19 Admit Problem/Dx: Admission Diagnosis/Problem Admission Diagnosis/Problem Pneumonia Source of Information: Patient History Limitations: Reports: No Limitations - History of Present Illness Initial Comments - Free Text/Narative: Rodger is 88 y/o resident of [facility] PMH of DM-II, A-fib, HFpEF, COPD, who was brought to the ED for increasing SOB and palpitation. He reports for the past two weeks he has been having SOB. This has gotten progressively worse. Today he also noted palpitation. SOB got worse so he presented to the ED. He denies leg swelling, orthopnea, PND. He notes dry cough. He has no fever or chills. No abdominal pain, nausea, vomiting or diarrhea. In the ED his vitals were unremarkable.initial work up showed wbc 20.7 with left shift, BNP 346. EKG showed A-fib with controlled ventricular rate. Cxr showed dependent right pleural effusion with no consolidation or infiltrates. Patient received IV abx. He is being admitted for further management. Improves with: Reports: None Worsens with: Reports: None Associated Symptoms: Reports: No Other Symptoms Chest Pain Score (Numeric/FACES): 6 - Related Data Allergies/Adverse Reactions: Allergies Allergy/AdvReac Type Severity Reaction Status Date / Time Iodinated Contrast Media Allergy Cannot Verified 04/05/19 17:25 [Iodinated Contrast Media - Remember Oral and] Home Medications: Home Meds Budesonide/Formoterol [Symbicort 160-4.5 MCG] 2 inh INH BID 06/26/15 [History] Loratadine 10 mg PO DAILY 05/22/16 [History] Multivitamin [Multivitamins] 1 each PO DAILY 05/22/16 [History] Docusate Sodium [Colace] 100 mg PO BID PRN 10/08/18 [History] Finasteride 5 mg PO DAILY 10/08/18 [History] guaiFENesin [Guaifenesin] 200 mg PO TID 10/08/18 [History] metFORMIN [Glucophage] 500 mg PO BID 10/08/18 [History] Apixaban [Eliquis] 5 mg PO BID 02/13/19 [History] Ferrous Sulfate [Ferosul] 325 mg PO TID 02/13/19 [History] Metoprolol Tartrate 12.5 mg PO BID 02/13/19 [History] Olopatadine HCl 1 drop OP ASDIRECTED PRN 02/13/19 [History] Zolpidem Tartrate [Ambien] 5 mg PO BEDTIME 02/13/19 [History] Acetaminophen [Tylenol] 325 mg PO Q6H PRN 03/11/19 [History] Albuterol Sulfate 1 inh INH Q6H PRN 03/11/19 [History] Albuterol/Ipratropium [DuoNeb 3.0-0.5 MG/3 ML] 3 ml NEB QID 03/11/19 [History] Bisacodyl [Dulcolax] 5 mg PO DAILY PRN 03/11/19 [History] Clotrimazole [Clotrimazole 1%] 1 applic TOP BID PRN 03/11/19 [History] Diltiazem [Cardizem CD] 180 mg PO DAILY 03/11/19 [History] Simvastatin [Zocor] 10 mg PO BEDTIME 03/11/19 [History] predniSONE [Prednisone] 5 mg PO DAILY 03/11/19 [History] Acetaminophen 650 mg PO BID 03/12/19 [History] Budesonide [Pulmicort] 0.5 mg NEB BIDRT neb 03/24/19 [Rx] Furosemide [Lasix] 60 mg PO BID #30 tab 03/24/19 [Rx] hydrOXYzine HCl [hydrOXYzine] 25 mg PO Q8HR PRN 04/05/19 [History] metOLazone [Zaroxolyn] 1.25 mg PO ASDIRECTED 04/05/19 [History] Past Medical History HEENT History: Reports: Cataract, Hard of Hearing Cardiovascular History: Reports: Afib, Heart Failure, Heart Murmur, Hypertension , SOB on Exertion Other Cardiovascular History: denies hyt and chf 03-11-19 Respiratory History: Reports: COPD, SOB, Other (See Below) Other Respiratory History: pleural effusion Gastrointestinal History: Reports: Colon Polyp Genitourinary History: Reports: BPH Musculoskeletal History: Reports: Other (See Below) Other Musculoskeletal History: adiposity Neurological History: Reports: None Psychiatric History: Reports: None Endocrine/Metabolic History: Reports: Diabetes, Type II, Obesity/BMI 30+ Hematologic History: Reports: None Immunologic History: Reports: None Oncologic (Cancer) History: Reports: Malignant Melanoma Dermatologic History: Reports: Melanoma Other Dermatologic History: malignant melanoma - denies 03/11/19 - Infectious Disease History Infectious Disease History: Reports: None - Past Surgical History Head Surgeries/Procedures: Reports: None HEENT Surgical History: Reports: Cataract Surgery, Other (See Below) Cardiovascular Surgical History: Reports: None Respiratory Surgical History: Reports: None GI Surgical History: Reports: Colonoscopy Endocrine Surgical History: Reports: None Musculoskeletal Surgical History: Reports: None, Other (See Below) Other Musculoskeletal Surgeries/Procedures:: Surgery on left hand Social & Family History - Family History Family Medical History: Noncontributory - Tobacco Use Smoking Status *Q: Never Smoker Second Hand Smoke Exposure: No - Caffeine Use Caffeine Use: Reports: Coffee - Recreational Drug Use Recreational Drug Use: No H&P Review of Systems - Review of Systems: Review Of Systems: See Below General: Reports: No Symptoms HEENT: Reports: No Symptoms Pulmonary: Reports: Shortness of Breath, Other (mild bibasilar crackles) Cardiovascular: Reports: Palpitations Gastrointestinal: Reports: No Symptoms Genitourinary: Reports: No Symptoms Musculoskeletal: Reports: No Symptoms Skin: Reports: No Symptoms Psychiatric: Reports: No Symptoms Neurological: Reports: No Symptoms Hematologic/Lymphatic: Reports: No Symptoms Immunologic: Reports: No Symptoms Exam - Exam Exam: See Below - Vital Signs Vital Signs: Last Vital Signs Temp 97.3 F 04/05/19 17:11 Pulse 63 04/05/19 17:11 Resp 16 04/05/19 17:11 BP 108/67 04/05/19 17:11 Pulse Ox 92 L 04/05/19 17:11 Weight: 187 lb 12.8 oz - Exam Quality Assessment: DVT Prophylaxis General: Alert, Oriented, 4 HEENT: PERRLA, Hearing Intact, Mucosa Moist & [place], Nares Patent, Normal Nasal Septum, Posterior Pharynx Clear, Conjunctiva Clear, EOMI, EACs Clear, TMs Clear Neck: Supple, Trachea Midline, 2 Lungs: Normal Respiratory Effort, Crackles Cardiovascular: Irregular Rhythm GI/Abdominal Exam: Normal Bowel Sounds, Soft, Non-Tender, No Organomegaly, No Distention, No Abnormal Bruit, No Mass, Pelvis Stable (Male) Exam: No Hernia, Normal Inspection, Normal Prostate, Circumcised Rectal (Males) Exam: Normal Exam, Normal Rectal Tone, Prostate Normal Back Exam: Normal Inspection, Full Range of Motion, NT Extremities: Normal Inspection, Normal Range of Motion, Non-Tender, No Pedal Edema, Normal Capillary Refill Skin: Warm, Dry, Intact Neurological: Cranial Nerves Intact, Reflexes Equal Bilateral Neuro Extensive - Mental Status: Alert, Oriented x3, Normal Mood/Affect, Normal Cognition Neuro Extensive - Motor, Sensory, Reflexes: CN II-XII Intact, Normal Gait, Normal Reflexes Psychiatric: Alert, Normal Affect, Normal Mood - Patient Data Lab Results Last 24 hrs: Laboratory Results - last 24 hr 04/05/19 04/05/19 04/05/19 Range/Units 14:49 14:49 14:49 WBC 20.7 H (5.0-10.0) 10^3/uL RBC 4.97 (4.6-6.2) 10^6/uL Hgb 14.5 D (14.0-18.0) g/dL Hct 45.5 (40.0-54.0) % MCV 91.5 D (80-100) fL MCH 29.2 (27.0-34.0) pg MCHC 31.9 L (33.0-35.0) g/dL Plt Count 221 D (150-450) 10^3/uL Lymph % (Auto) 7.3 L (20.5-50.1) % [place] % (Auto) 6.5 (2-8) % Eos % (Auto) 0.4 L (1.0-3.0) % Add Manual Diff Yes Neutrophils % (Manual) 81 H (42-75) % Band Neutrophils % 1 % Lymphocytes % (Manual) 12 L (20-50) % Monocytes % (Manual) 6 (2-8) % Giant Platelets Rare PT 11.5 (9.0-12.0) SEC INR 1.1 (0.9-1.2) Sodium 140 (135-145) mmol/L Potassium 3.6 (3.6-5.0) mmol/L Chloride 90 L (101-111) mmol/L Carbon Dioxide 36.0 H (21.0-31.0) mmol/L Anion Gap 17.6 BUN 27 H (7-18) mg/dL Creatinine 1.7 H (0.6-1.3) mg/dL Est Cr Clr Drug Dosing 27.13 mL/min Estimated GFR (MDRD) 38 BUN/Creatinine Ratio 15.88 Glucose 155 H (74-105) mg/dL Lactic Acid (0.5-2.2) mmol/L Calcium 9.2 (8.4-10.2) mg/dl Total Bilirubin 1.0 (0.2-1.0) mg/dL AST 16 (10-42) IU/L ALT 20 (10-60) IU/L Alkaline Phosphatase 50 (42-121) IU/L Troponin I < 0.02 (0.00-0.02) ng/ml B-Natriuretic Peptide 342 H (0-100) pg/ml Total Protein 6.5 L (6.7-8.2) g/dl Albumin 3.4 (3.2-5.5) g/dl Globulin 3.1 Albumin/Globulin Ratio 1.10 /14/19 Range/Units 15:34 WBC (5.0-10.0) 10^3/uL RBC (4.6-6.2) 10^6/uL Hgb (14.0-18.0) g/dL Hct (40.0-54.0) % MCV (80-100) fL MCH (27.0-34.0) pg MCHC (33.0-35.0) g/dL Plt Count (150-450) 10^3/uL Lymph % (Auto) (20.5-50.1) % [place] % (Auto) (2-8) % Eos % (Auto) (1.0-3.0) % Add Manual Diff Neutrophils % (Manual) (42-75) % Band Neutrophils % % Lymphocytes % (Manual) (20-50) % Monocytes % (Manual) (2-8) % Giant Platelets PT (9.0-12.0) SEC INR (0.9-1.2) Sodium (135-145) mmol/L Potassium (3.6-5.0) mmol/L Chloride (101-111) mmol/L Carbon Dioxide (21.0-31.0) mmol/L Anion Gap BUN (7-18) mg/dL Creatinine (0.6-1.3) mg/dL Est Cr Clr Drug Dosing mL/min Estimated GFR (MDRD) BUN/Creatinine Ratio Glucose (74-105) mg/dL Lactic Acid 2.0 (0.5-2.2) mmol/L Calcium (8.4-10.2) mg/dl Total Bilirubin (0.2-1.0) mg/dL AST (10-42) IU/L ALT (10-60) IU/L Alkaline Phosphatase (42-121) IU/L Troponin I (0.00-0.02) ng/ml B-Natriuretic Peptide (0-100) pg/ml Total Protein (6.7-8.2) g/dl Albumin (3.2-5.5) g/dl Globulin Albumin/Globulin Ratio Result Diagrams: 04/05/19 14:49 04/05/19 14:49 - Problem List (1) Asthma exacerbation in COPD SNOMED Code(s): 6480130568550 ICD Code: J44.1 - CHRONIC OBSTRUCTIVE PULMONARY DISEASE W (ACUTE) EXACERBATION; J45.901 - UNSPECIFIED ASTHMA WITH (ACUTE) EXACERBATION Status: Acute Current Visit: No (2) Atrial fibrillation with RVR SNOMED Code(s): 569469341008442 ICD Code: I48.91 - UNSPECIFIED ATRIAL FIBRILLATION Status: Acute Current Visit: No (3) CHF (congestive heart failure) SNOMED Code(s): 97685145 ICD Code: I50.9 - HEART FAILURE, UNSPECIFIED Status: Acute Current Visit : No Qualifiers: Heart failure type: unspecified Heart failure chronicity: acute on chronic Qualified Code(s): I50.9 - Heart failure, unspecified (4) Pneumonia SNOMED Code(s): 926924129 ICD Code: J18.9 - PNEUMONIA, UNSPECIFIED ORGANISM Status: Acute Current Visit: Yes Problem List Initiated/Reviewed/Updated: Yes Orders Last 24hrs: Active Orders 24 hr Category Date Time Status Admission Diagnosis [ADT] Urgent ADT 04/05/19 16:51 Ordered Admission Status [Patient Status] [ADT] Routine ADT 04/05/19 16:51 Active Ambulate [RC] ASDIRECTED Care 04/05/19 17:42 Ordered EKG Documentation Completion [RC] STAT Care 04/05/19 14:23 Active Height and Weight [RC] DAILY Care 04/05/19 17:42 Ordered Intake and Output [RC] QSHIFT Care 04/05/19 17:43 Ordered Notify Provider Vital Signs [RC] ASDIRECTED Care 04/05/19 17:43 Ordered Oxygen Therapy [RC] PRN Care 04/05/19 17:42 Ordered Peripheral IV Care [RC] 08,20 Care 04/05/19 14:23 Active Pulse Oximetry [RC] PRN Care 04/05/19 17:43 Ordered RT Aerosol Therapy [RC] ASDIRECTED Care 04/05/19 14:48 Active VTE/DVT Education [RC] PER UNIT ROUTINE Care 04/05/19 17:42 Ordered Vital Signs [RC] Q4H Care 04/05/19 17:42 Ordered OT Evaluation and Treatment [CONS] Routine Cons 04/05/19 17:42 Ordered PT Evaluation and Treatment [CONS] Routine Cons 04/05/19 17:42 Ordered Heart Healthy Diet [DIET] Diet 04/05/19 Dinner Ordered BASIC METABOLIC PANEL,BMP [CHEM] DAILY Lab 04/06/19 07:00 Ordered BASIC METABOLIC PANEL,BMP [CHEM] DAILY Lab 04/07/19 07:00 Ordered CBC WITH AUTO DIFF [HEME] DAILY Lab 04/06/19 07:00 Ordered CBC WITH AUTO DIFF [HEME] DAILY Lab 04/07/19 07:00 Ordered CULTURE BLOOD [BC] Stat Lab 04/05/19 15:34 Received CULTURE BLOOD [BC] Stat Lab 04/05/19 15:40 Received MAGNESIUM [CHEM] Routine Lab 04/05/19 17:42 Ordered PHOSPHORUS [CHEM] Routine Lab 04/05/19 17:42 Ordered Acetaminophen [Tylenol] Med 04/05/19 17:46 Ordered 325 mg PO Q6H PRN Acetaminophen [Tylenol] Med 04/05/19 17:42 Ordered 650 mg PO Q4H PRN Albuterol [Proventil Neb Soln] Med 04/05/19 17:46 Ordered 1 inh INH Q6H PRN Albuterol/Ipratropium [DuoNeb 3.0-0.5 MG/3 ML] Med 04/05/19 21:00 Ordered 3 ml NEB QID Apixaban [Eliquis] Med 04/05/19 21:00 Ordered 5 mg PO BID Bisacodyl [Dulcolax] Med 04/05/19 17:46 Ordered 5 mg PO DAILY PRN Budesonide [Pulmicort] Med 04/05/19 18:00 Ordered 0.5 mg NEB BIDRT Budesonide/Formoterol Med 04/05/19 21:00 Ordered 2 inh INH BID Clotrimazole [Lotrimin AF 1% Crm] Med 04/05/19 17:46 Ordered 1 applic TOP BID PRN Diltiazem [Cardizem CD] Med 04/06/19 09:00 Ordered 180 mg PO DAILY Docusate Sodium [Colace] Med 04/05/19 17:46 Ordered 100 mg PO BID PRN Ferrous Sulfate Med 04/05/19 21:00 Ordered 325 mg PO TID Finasteride [Proscar] Med 04/06/19 09:00 Ordered 5 mg PO DAILY Furosemide [Lasix] Med 04/05/19 21:00 Ordered 40 mg IVPUSH BID Heparin Sodium Med 04/05/19 21:00 Ordered 5,000 units SUBCUT Q12HR Levofloxacin/Dextrose 5%-Water [Levaquin in D5W 750 MG/ Med 04/06/19 18:00 Ordered 150 ML] 750 mg Premix Bag 1 bag IV Q24H Loratadine [Claritin] Med 04/06/19 09:00 Ordered 10 mg PO DAILY Metoprolol Tartrate [Lopressor] Med 04/05/19 21:00 Ordered 12.5 mg PO BID Multivitamin [Multivitamins] Med 04/06/19 09:00 Ordered 1 each PO DAILY Olopatadine HCl [Olopatadine HCl] Med 04/05/19 17:46 Ordered 1 drop OP ASDIRECTED PRN Simvastatin [Zocor] Med 04/05/19 21:00 Ordered 10 mg PO BEDTIME Sodium Chloride 0.9% [Saline Flush] Med 04/05/19 14:23 Active 10 ml FLUSH ASDIRECTED PRN Zolpidem [Ambien] Med 04/05/19 21:00 Ordered 5 mg PO BEDTIME guaiFENesin [Guaifenesin] Med 04/05/19 21:00 Ordered 200 mg PO TID hydrOXYzine HCl [Atarax] Med 04/05/19 17:46 Ordered 25 mg PO Q8HR PRN metFORMIN [Glucophage] Med 04/05/19 21:00 Ordered 500 mg PO BID metOLazone [Zaroxolyn] Med 04/05/19 18:00 Ordered 1.25 mg PO ASDIRECTED predniSONE Med 04/06/19 09:00 Ordered 5 mg PO DAILY Blood Culture x2 Reflex Set [OM.PC] Stat Oth 04/05/19 15:21 Ordered Peripheral IV Insertion Adult [OM.PC] Stat Oth 04/05/19 14:23 Ordered Resuscitation Status Routine Resus Stat 04/05/19 17:42 Ordered Medication Orders Acetaminophen (Tylenol) 650 mg PO Q4H PRN PRN Reason: Pain (Mild 1-3)/fever Acetaminophen (Tylenol) 325 mg PO Q6H PRN PRN Reason: Pain/Fever Albuterol (Proventil Neb Soln) mg INH Q6H PRN PRN Reason: Shortness of Breath Albuterol/Ipratropium (Duoneb 3.0-0.5 Mg/3 Ml) 3 ml NEB QID [facility] Bisacodyl (Dulcolax) 5 mg PO DAILY PRN PRN Reason: Constipation Budesonide (Pulmicort) 0.5 mg NEB BIDRT [facility] Clotrimazole (Lotrimin Af 1% Crm) gm TOP BID PRN PRN Reason: Rash Diltiazem HCl (Cardizem Cd) 180 mg PO DAILY [facility] Ferrous Sulfate (Ferrous Sulfate) 325 mg PO TID [facility] Finasteride (Proscar) 5 mg PO DAILY [facility] Furosemide (Lasix) 40 mg IVPUSH BID [facility] Heparin Sodium (Porcine) (Heparin Sodium) 5,000 units SUBCUT Q12HR [facility] Hydroxyzine HCl (Atarax) 25 mg PO Q8HR PRN PRN Reason: Anxiety Levofloxacin/Dextrose 750 mg/ (Premix) 150 mls @ 100 mls/hr IV Q24H [facility] Loratadine (Claritin) 10 mg PO DAILY [facility] Metformin HCl (Glucophage) 500 mg PO BID [facility] Metolazone (Zaroxolyn) 1.25 mg PO ASDIRECTED [facility] Metoprolol Tartrate (Lopressor) 12.5 mg PO BID [facility] Non-Formulary Medication (Apixaban [Eliquis]) 5 mg PO BID [facility] Non-Formulary Medication (Budesonide/Formoterol) 2 inh INH BID [facility] Non-Formulary Medication (Docusate Sodium [Colace]) 100 mg PO BID PRN PRN Reason: Constipation Non-Formulary Medication (Guaifenesin [Guaifenesin]) 200 mg PO TID [facility] Non-Formulary Medication (Multivitamin [Multivitamins]) 1 each PO DAILY [facility] Non-Formulary Medication (Olopatadine Hcl [Olopatadine Hcl]) 1 drop OP ASDIRECTED PRN PRN Reason: Itching Non-Formulary Medication (Simvastatin [Zocor]) 10 mg PO BEDTIME [facility] Prednisone (Prednisone) 5 mg PO DAILY [facility] Sodium Chloride (Saline Flush) 10 ml FLUSH ASDIRECTED PRN PRN Reason: Keep Vein Open Last Admin: 04/05/19 17:12 Dose: 10 ml Admin: 04/05/19 15:07 Dose: 10 ml Zolpidem Tartrate (Ambien) 5 mg PO BEDTIME [facility] Assessment/Plan Comment:: #SOB due to acute exacerbation of HFpEF -Patient presented with increasing SOB -BNP elevated -Cxr showed dependent right pleural effusion -Patient appera euvolemic on exam -Admit to medical floor -Monitor vitals -IV Lasix 40 mg bid -Daily weight -Fluid restriction to 1.2 L per day #Probable PNA, likely gram negative pneumonia -wbc 20.7 -Patient reports unproductive cough with SOB -Cxr was negative for infiltrate but showed dependent right pleural effusion -Blood cx sent -Sputum for gram stain and cx if patient able -IV Levaquin -Daily cbc #DM-II -Continue home meds -accucheks #A-fib -Rate controlled -Continue Diltiazem and metoprolol -On Xarelto for chronic anti-coagulation #COPD -Apperas stable. No wheezing -Continue home medication #Diet -Diabetic #Code -DNI/DNR
[2019-04-05] MEDS: metFORMIN 500 MG Tab PO SCH (19:29)
[2019-04-05] MEDS ORDERED: Furosemide 40 MG/4 ML VIAL IVPUSH SCH (20:00)
[2019-04-05] MEDS: Zolpidem 5 MG Tab PO SCH (20:09)
[2019-04-05] MEDS: Acetaminophen 325 MG Tab PO PRN (20:09)
[2019-04-05] MEDS: Simvastatin 10 MG Tab PO SCH (20:09)
[2019-04-05] MEDS: Albuterol/Ipratropium 3.0-0.5 MG/3 ML Neb Soln NEB SCH (20:11)
[2019-04-05] MEDS ORDERED: Ferrous Sulfate 325 MG Tab PO SCH (21:00)
[2019-04-05] MEDS ORDERED: Heparin Sodium 5,000 Units/ML Vial SUBCUT SCH (21:00)
[2019-04-05] MEDS: Metoprolol Tartrate 25 MG Tab PO SCH (21:42)
[2019-04-05] MEDS: APIXABAN 5 MG PO SCH (21:44)
[2019-04-06] MEDS: Acetaminophen 325 MG Tab PO PRN ×3 (00:19→14:57)
[2019-04-06] MEDS: hydrOXYzine HCl 25 MG Tab PO PRN ×2 (00:20→20:07)
[2019-04-06] MEDS: Formoterol/Mometasone 200-5 MCG 8.8 GM Inhaler IH SCH ×3 (01:03→20:10)
[2019-04-06 06:57] LABS: ANION GAP 15.1
[2019-04-06] MEDS: Albuterol/Ipratropium 3.0-0.5 MG/3 ML Neb Soln NEB SCH ×4 (07:29→20:07)
[2019-04-06] MEDS ORDERED: Sodium Chloride 0.9% 10 ML Syringe FLUSH PRN (08:12)
[2019-04-06] MEDS: Furosemide 40 MG/4 ML VIAL IVPUSH SCH (08:32)
[2019-04-06] MEDS: Multivitamins,Therapeutic Tab PO SCH (08:48)
[2019-04-06] MEDS: Ferrous Sulfate 325 MG Tab PO SCH ×3 (08:48→17:38)
[2019-04-06] MEDS: predniSONE 5 MG Tab PO SCH (08:49)
[2019-04-06] MEDS: Loratadine 10 MG Tab PO SCH (08:49)
[2019-04-06] MEDS: metFORMIN 500 MG Tab PO SCH ×2 (08:49→17:38)
[2019-04-06] MEDS: Finasteride 5 MG Tab PO SCH (08:49)
[2019-04-06] MEDS: Metoprolol Tartrate 25 MG Tab PO SCH (08:50)
[2019-04-06] MEDS: APIXABAN 5 MG PO SCH ×2 (08:55→20:11)
[2019-04-06] MEDS ORDERED: Metolazone 2.5 MG Tab PO SCH (09:00)
[2019-04-06] MEDS ORDERED: Diltiazem 180 MG Cap.CD PO SCH (09:00)
[2019-04-06] MEDS: Budesonide 0.5 MG/2 ML Neb Susp NEB SCH ×2 (10:29→10:30)
[2019-04-06] MEDS: Potassium Chloride 10 MEQ in Premix Bag 1 BAG IV SCH ×3 (10:40→13:24)
--- NOTE | 2019-04-06 11:28 | PCM.PN ---
- General Info Date of Service: 04/06/19 Admission Dx/Problem (Free Text): Admission Diagnosis/Problem Admission Diagnosis/Problem Pneumonia/Diastolic CHF Subjective Update: Rodger is 88 y/o resident of [facility] PMH of DM-II, A-fib, HFpEF, COPD, who was brought to the ED for increasing SOB and palpitation. Initial work up in the ED showed wbc 20.7 with left shift, BNP 346. EKG showed A-fib with controlled ventricular rate. Cxr showed dependent right pleural effusion with no consolidation or infiltrates. Patient was admitted for diastolic CHF exacerbation vs probable pneumonia. He was started on IV diuresis and abx. Today patient was seen and examined. He is doing fairly well. He reports SOB has improved. He is diuresing well. He denies fever, chills. No chest pain. Wbc trended down to 12.9 Functional Status: Reports: Pain Controlled - Review of Systems General: Reports: No Symptoms HEENT: Reports: No Symptoms Pulmonary: Reports: No Symptoms Cardiovascular: Reports: No Symptoms Gastrointestinal: Reports: No Symptoms Genitourinary: Reports: No Symptoms Musculoskeletal: Reports: No Symptoms Skin: Reports: No Symptoms Neurological: Reports: No Symptoms Psychiatric: Reports: No Symptoms - Patient Data Vitals - Most Recent: Last Vital Signs Temp 98.2 F 04/06/19 11:16 Pulse 77 04/06/19 11:16 Resp 18 04/06/19 11:16 BP 84/64 L 04/06/19 11:17 Pulse Ox 98 04/06/19 11:16 Weight - Most Recent: 184 lb 6.4 oz I&O - Last 24 Hours: Intake & Output 04/05/19 04/06/19 04/06/19 22:59 06:59 14:59 Intake Total 355 660 Output Total 100 Balance 255 660 Lab Results Last 24 Hours: Laboratory Results - last 24 hr 04/05/19 04/05/19 04/05/19 Range/Units 14:49 14:49 14:49 WBC 20.7 H (5.0-10.0) 10^3/uL RBC 4.97 (4.6-6.2) 10^6/uL Hgb 14.5 D (14.0-18.0) g/dL Hct 45.5 (40.0-54.0) % MCV 91.5 D (80-100) fL MCH 29.2 (27.0-34.0) pg MCHC 31.9 L (33.0-35.0) g/dL Plt Count 221 D (150-450) 10^3/uL Neut % (Auto) (42.2-75.2) % Lymph % (Auto) 7.3 L (20.5-50.1) % [place] % (Auto) 6.5 (2-8) % Eos % (Auto) 0.4 L (1.0-3.0) % Baso % (Auto) (0.0-1.0) % Add Manual Diff Yes Neutrophils % (Manual) 81 H (42-75) % Band Neutrophils % 1 % Lymphocytes % (Manual) 12 L (20-50) % Monocytes % (Manual) 6 (2-8) % Giant Platelets Rare PT 11.5 (9.0-12.0) SEC INR 1.1 (0.9-1.2) Sodium 140 (135-145) mmol/L Potassium 3.6 (3.6-5.0) mmol/L Chloride 90 L (101-111) mmol/L Carbon Dioxide 36.0 H (21.0-31.0) mmol/L Anion Gap 17.6 BUN 27 H (7-18) mg/dL Creatinine 1.7 H (0.6-1.3) mg/dL Est Cr Clr Drug Dosing 27.13 mL/min Estimated GFR (MDRD) 38 BUN/Creatinine Ratio 15.88 Glucose 155 H (74-105) mg/dL POC Glucose (83-110) mg/dl Lactic Acid (0.5-2.2) mmol/L Calcium 9.2 (8.4-10.2) mg/dl Phosphorus (2.5-4.6) mg/dL Magnesium (1.8-2.5) mg/dL Total Bilirubin 1.0 (0.2-1.0) mg/dL AST 16 (10-42) IU/L ALT 20 (10-60) IU/L Alkaline Phosphatase 50 (42-121) IU/L Troponin I < 0.02 (0.00-0.02) ng/ml B-Natriuretic Peptide 342 H (0-100) pg/ml Total Protein 6.5 L (6.7-8.2) g/dl Albumin 3.4 (3.2-5.5) g/dl Globulin 3.1 Albumin/Globulin Ratio 1.10 04/05/19 04/05/19 04/05/19 Range/Units 14:49 15:34 20:55 WBC (5.0-10.0) 10^3/uL RBC (4.6-6.2) 10^6/uL Hgb (14.0-18.0) g/dL Hct (40.0-54.0) % MCV (80-100) fL MCH (27.0-34.0) pg MCHC (33.0-35.0) g/dL Plt Count (150-450) 10^3/uL Neut % (Auto) (42.2-75.2) % Lymph % (Auto) (20.5-50.1) % [place] % (Auto) (2-8) % Eos % (Auto) (1.0-3.0) % Baso % (Auto) (0.0-1.0) % Add Manual Diff Neutrophils % (Manual) (42-75) % Band Neutrophils % % Lymphocytes % (Manual) (20-50) % Monocytes % (Manual) (2-8) % Giant Platelets PT (9.0-12.0) SEC INR (0.9-1.2) Sodium (135-145) mmol/L Potassium (3.6-5.0) mmol/L Chloride (101-111) mmol/L Carbon Dioxide (21.0-31.0) mmol/L Anion Gap BUN (7-18) mg/dL Creatinine (0.6-1.3) mg/dL Est Cr Clr Drug Dosing mL/min Estimated GFR (MDRD) BUN/Creatinine Ratio Glucose (74-105) mg/dL POC Glucose 141 H (83-110) mg/dl Lactic Acid 2.0 (0.5-2.2) mmol/L Calcium (8.4-10.2) mg/dl Phosphorus 4.2 (2.5-4.6) mg/dL Magnesium 2.1 (1.8-2.5) mg/dL Total Bilirubin (0.2-1.0) mg/dL AST (10-42) IU/L ALT (10-60) IU/L Alkaline Phosphatase (42-121) IU/L Troponin I (0.00-0.02) ng/ml B-Natriuretic Peptide (0-100) pg/ml Total Protein (6.7-8.2) g/dl Albumin (3.2-5.5) g/dl Globulin Albumin/Globulin Ratio 04/06/19 04/06/19 04/06/19 Range/Units 06:19 06:19 07:20 WBC 12.9 H (5.0-10.0) 10^3/uL RBC 4.62 (4.6-6.2) 10^6/uL Hgb 13.6 L (14.0-18.0) g/dL Hct 42.3 (40.0-54.0) % MCV 91.6 (80-100) fL MCH 29.4 (27.0-34.0) pg MCHC 32.2 L (33.0-35.0) g/dL Plt Count 184 (150-450) 10^3/uL Neut % (Auto) 74.5 (42.2-75.2) % Lymph % (Auto) 15.1 L (20.5-50.1) % [place] % (Auto) 9.1 H (2-8) % Eos % (Auto) 0.9 L (1.0-3.0) % Baso % (Auto) 0.4 (0.0-1.0) % Add Manual Diff Neutrophils % (Manual) (42-75) % Band Neutrophils % % Lymphocytes % (Manual) (20-50) % Monocytes % (Manual) (2-8) % Giant Platelets PT (9.0-12.0) SEC INR (0.9-1.2) Sodium 139 (135-145) mmol/L Potassium 3.1 L (3.6-5.0) mmol/L Chloride 88 L (101-111) mmol/L Carbon Dioxide 39.0 H (21.0-31.0) mmol/L Anion Gap 15.1 BUN 28 H (7-18) mg/dL Creatinine 1.6 H (0.6-1.3) mg/dL Est Cr Clr Drug Dosing 28.83 mL/min Estimated GFR (MDRD) 41 BUN/Creatinine Ratio Glucose 197 H (74-105) mg/dL POC Glucose 168 H (83-110) mg/dl Lactic Acid (0.5-2.2) mmol/L Calcium 8.8 (8.4-10.2) mg/dl Phosphorus (2.5-4.6) mg/dL Magnesium (1.8-2.5) mg/dL Total Bilirubin (0.2-1.0) mg/dL AST (10-42) IU/L ALT (10-60) IU/L Alkaline Phosphatase (42-121) IU/L Troponin I (0.00-0.02) ng/ml B-Natriuretic Peptide (0-100) pg/ml Total Protein (6.7-8.2) g/dl Albumin (3.2-5.5) g/dl Globulin Albumin/Globulin Ratio 04/06/ Range/Units 11:10 WBC (5.0-10.0) 10^3/uL RBC (4.6-6.2) 10^6/uL Hgb (14.0-18.0) g/dL Hct (40.0-54.0) % MCV (80-100) fL MCH (27.0-34.0) pg MCHC (33.0-35.0) g/dL Plt Count (150-450) 10^3/uL Neut % (Auto) (42.2-75.2) % Lymph % (Auto) (20.5-50.1) % [place] % (Auto) (2-8) % Eos % (Auto) (1.0-3.0) % Baso % (Auto) (0.0-1.0) % Add Manual Diff Neutrophils % (Manual) (42-75) % Band Neutrophils % % Lymphocytes % (Manual) (20-50) % Monocytes % (Manual) (2-8) % Giant Platelets PT (9.0-12.0) SEC INR (0.9-1.2) Sodium (135-145) mmol/L Potassium (3.6-5.0) mmol/L Chloride (101-111) mmol/L Carbon Dioxide (21.0-31.0) mmol/L Anion Gap BUN (7-18) mg/dL Creatinine (0.6-1.3) mg/dL Est Cr Clr Drug Dosing mL/min Estimated GFR (MDRD) BUN/Creatinine Ratio Glucose (74-105) mg/dL POC Glucose 164 H (83-110) mg/dl Lactic Acid (0.5-2.2) mmol/L Calcium (8.4-10.2) mg/dl Phosphorus (2.5-4.6) mg/dL Magnesium (1.8-2.5) mg/dL Total Bilirubin (0.2-1.0) mg/dL AST (10-42) IU/L ALT (10-60) IU/L Alkaline Phosphatase (42-121) IU/L Troponin I (0.00-0.02) ng/ml B-Natriuretic Peptide (0-100) pg/ml Total Protein (6.7-8.2) g/dl Albumin (3.2-5.5) g/dl Globulin Albumin/Globulin Ratio Med Orders - Current: Current Medications Acetaminophen (Tylenol) 650 mg PO Q4H PRN PRN Reason: Pain (Mild 1-3)/fever Last Admin: 04/06/19 10:33 Dose: 650 mg Albuterol (Proventil Neb Soln) 2.5 mg INH Q6HRRT PRN PRN Reason: Shortness of Breath Albuterol/Ipratropium (Duoneb 3.0-0.5 Mg/3 Ml) 3 ml NEB QIDRT [facility] Last Admin: 04/06/19 07:29 Dose: 3 ml Bisacodyl (Dulcolax) 5 mg PO DAILY PRN PRN Reason: Constipation Clotrimazole (Lotrimin Af 1% Crm) 0 gm TOP BID PRN PRN Reason: Rash Diltiazem HCl (Cardizem Cd) 180 mg PO DAILY [facility] Last Admin: 04/06/19 08:48 Dose: 180 mg Docusate Sodium (Colace) 100 mg PO BID PRN PRN Reason: Constipation Ferrous Sulfate (Ferrous Sulfate) 325 mg PO TID@0800,1200,1700 [facility] Last Admin: 04/06/19 08:48 Dose: 325 mg Finasteride (Proscar) 5 mg PO DAILY [facility] Last Admin: 04/06/19 08:49 Dose: 5 mg Furosemide (Lasix) 40 mg IVPUSH BID@0800,1400 [facility] Last Admin: 04/06/19 08:32 Dose: 40 mg Guaifenesin (Mucus Relief) 200 mg PO TID [facility] Last Admin: 04/06/19 08:47 Dose: 200 mg Hydroxyzine HCl (Atarax) 25 mg PO Q8HR PRN PRN Reason: Anxiety Last Admin: 04/06/19 00:20 Dose: 25 mg Levofloxacin/Dextrose 750 mg/ (Premix) 150 mls @ 100 mls/hr IV Q48H [facility] Potassium Chloride 10 meq/ (Premix) 100 mls @ 100 mls/hr IV Q2H [facility] Stop: 04/06/19 14:59 Last Admin: 04/06/19 10:40 Dose: 50 mls/hr Insulin Human Lispro (Humalog) 0 unit SUBCUT WITHMEALSANDBED [facility]; Protocol Loratadine (Claritin) 10 mg PO DAILY [facility] Last Admin: 04/06/19 08:49 Dose: 10 mg Metformin HCl (Glucophage) 500 mg PO BIDMEALS [facility] Last Admin: 04/06/19 08:49 Dose: 500 mg Metoprolol Tartrate (Lopressor) 12.5 mg PO BID [facility] Last Admin: 04/06/19 08:50 Dose: 12.5 mg Mometasone Furoate/Formoterol Fumar (Dulera 200-5 Mcg) 0 puff IH BID [facility] Last Admin: 04/06/19 08:55 Dose: 2 puff Multivitamins (Thera) 1 each PO DAILY [facility] Last Admin: 04/06/19 08:48 Dose: 1 each Apixaban [Eliquis] 5 (Mg *Own Med*) 5 mg PO BID [facility] Last Admin: 04/06/19 08:55 Dose: 5 mg Potassium Chloride (Klor-Con 10) 40 meq PO BEDTIME [facility] Prednisone (Prednisone) 5 mg PO DAILY [facility] Last Admin: 04/06/19 08:49 Dose: 5 mg Simvastatin (Zocor) 10 mg PO BEDTIME [facility] Last Admin: 04/05/19 20:09 Dose: 10 mg Sodium Chloride (Saline Flush) 10 ml FLUSH ASDIRECTED PRN PRN Reason: Keep Vein Open Zolpidem Tartrate (Ambien) 5 mg PO BEDTIME [facility] Last Admin: 04/05/19 20:09 Dose: 5 mg Discontinued Medications Acetaminophen (Tylenol) 325 mg PO Q6H PRN PRN Reason: Pain/Fever Albuterol/Ipratropium (Duoneb 3.0-0.5 Mg/3 Ml) 3 ml NEB ONETIME ONE Stop: 04/05/19 14:49 Last Admin: 04/05/19 14:56 Dose: 3 ml Budesonide (Pulmicort) 0.5 mg NEB BIDRT [facility] Last Admin: 04/06/19 10:30 Dose: Not Given Ferrous Sulfate (Ferrous Sulfate) 325 mg PO TIDAC [facility] Last Admin: 04/05/19 20:11 Dose: 325 mg Furosemide (Lasix) 40 mg IVPUSH BID@0900,2000 [facility] Last Admin: 04/05/19 19:29 Dose: 40 mg Heparin Sodium (Porcine) (Heparin Sodium) 5,000 units SUBCUT Q12HR [facility] Levofloxacin/Dextrose 500 mg/ (Premix) 100 mls @ 100 mls/hr IV ONETIME ONE Stop: 04/05/19 17:41 Last Infusion: 04/05/19 18:12 Dose: Infused Metolazone (Zaroxolyn) 1.25 mg PO DAILY [facility] Stop: 04/06/19 09:01 Last Admin: 04/06/19 10:38 Dose: 1.25 mg Non-Formulary Medication (Olopatadine Hcl [Olopatadine Hcl]) 1 drop OP ASDIRECTED PRN PRN Reason: Itching Sodium Chloride (Saline Flush) 10 ml FLUSH ASDIRECTED PRN PRN Reason: Keep Vein Open Last Admin: 04/05/19 17:12 Dose: 10 ml - Exam Quality Assessment: Supplemental Oxygen, DVT Prophylaxis General: Alert, Oriented HEENT: Pupils Equal, Pupils Reactive, EOMI, Mucous Membr. Moist/[place] Neck: Supple Lungs: Clear to Auscultation, Normal Respiratory Effort Cardiovascular: Regular Rate, Regular Rhythm GI/Abdominal Exam: Normal Bowel Sounds, Soft, Non-Tender, No Organomegaly, No Distention, No Abnormal Bruit, No Mass, Pelvis Stable (Male) Exam: No Hernia, Normal Inspection, Normal Prostate, Circumcised Back Exam: Normal Inspection, Full Range of Motion Extremities: Normal Inspection, Normal Range of Motion, Non-Tender, No Pedal Edema, Normal Capillary Refill Skin: Warm, Dry, Intact Wound/Incisions: Healing Well Neurological: No New Focal Deficit Psy/Mental Status: Alert, Normal Affect, Normal Mood - Problem List & Annotations (1) Asthma exacerbation in COPD SNOMED Code(s): 6229982712359 Code(s): J44.1 - CHRONIC OBSTRUCTIVE PULMONARY DISEASE W (ACUTE) EXACERBATION ; J45.901 - UNSPECIFIED ASTHMA WITH (ACUTE) EXACERBATION Status: Acute Current Visit: No (2) Atrial fibrillation with RVR SNOMED Code(s): 592501259265010 Code(s): I48.91 - UNSPECIFIED ATRIAL FIBRILLATION Status: Acute Current Visit: No (3) CHF (congestive heart failure) SNOMED Code(s): 48449707 Code(s): I50.9 - HEART FAILURE, UNSPECIFIED Status: Acute Current Visit: No Qualifiers: Heart failure type: unspecified Heart failure chronicity: acute on chronic Qualified Code(s): I50.9 - Heart failure, unspecified (4) Pneumonia SNOMED Code(s): 284099842 Code(s): J18.9 - PNEUMONIA, UNSPECIFIED ORGANISM Status: Acute Current Visit: Yes - Problem List Review Problem List Initiated/Reviewed/Updated: Yes - My Orders Last 24 Hours: My Active Orders 04/05/19 17:42 Ambulate [RC] ASDIRECTED Height and Weight [RC] 0600 Oxygen Therapy [RC] PRN VTE/DVT Education [RC] Vital Signs [RC] Q4H OT Evaluation and Treatment [CONS] Routine PT Evaluation and Treatment [CONS] Routine Acetaminophen [Tylenol] 650 mg PO Q4H PRN Resuscitation Status Routine 04/05/19 17:43 Intake and Output [RC] , Notify Provider Vital Signs [RC] ASDIRECTED Pulse Oximetry [RC] PRN 04/05/19 17:46 Albuterol [Proventil Neb Soln] 2.5 mg INH Q6HRRT PRN Bisacodyl [Dulcolax] 5 mg PO DAILY PRN Clotrimazole [Lotrimin AF 1% Crm] 0 gm TOP BID PRN Docusate Sodium [Colace] 100 mg PO BID PRN hydrOXYzine HCl [Atarax] 25 mg PO Q8HR PRN 04/05/19 18:52 Blood Glucose Check, Bedside [RC] QIDACANDBED 04/05/19 19:00 metFORMIN [Glucophage] 500 mg PO BIDMEALS 04/05/19 21:00 Albuterol/Ipratropium [DuoNeb 3.0-0.5 MG/3 ML] 3 ml NEB QIDRT Apixaban [Eliquis] 5 mg PO BID Metoprolol Tartrate [Lopressor] 12.5 mg PO BID Simvastatin [Zocor] 10 mg PO BEDTIME Zolpidem [Ambien] 5 mg PO BEDTIME guaiFENesin [Mucus Relief] 200 mg PO TID 04/05/19 Dinner Heart Healthy Diet [DIET] 04/06/19 01:00 Mometasone/Formoterol [Dulera 200-5 MCG] 0 puff IH BID 04/06/19 08:00 Ferrous Sulfate 325 mg PO TID@0800,1200,1700 Furosemide [Lasix] 40 mg IVPUSH BID@0800,1400 04/06/19 08:12 Sodium Chloride 0.9% [Saline Flush] 10 ml FLUSH ASDIRECTED PRN 04/06/19 09:00 Diltiazem [Cardizem CD] 180 mg PO DAILY Finasteride [Proscar] 5 mg PO DAILY Loratadine [Claritin] 10 mg PO DAILY Multivitamins,Therapeutic [Thera] 1 each PO DAILY predniSONE 5 mg PO DAILY 04/06/19 10:00 Potassium Chloride [KCl 10 MEQ in Water 100 ML] 10 meq Premix Bag 1 bag IV Q2H 04/06/19 12:00 Insulin Lispro [HumaLOG] See Protocol SUBCUT WITHMEALSANDBED 04/06/19 21:00 Potassium Chloride [Klor-Con 10] 40 meq PO BEDTIME 04/06/19 Lunch Fluid Restriction [DIET] 04/07/19 07:00 BASIC METABOLIC PANEL,BMP [CHEM] DAILY CBC WITH AUTO DIFF [HEME] DAILY 04/07/19 18:00 Levofloxacin/Dextrose 5%-Water [Levaquin in D5W 750 MG/150 ML] 750 mg Premix Bag 1 bag IV Q48H - Plan Plan:: #Acute on chronic HFpEF -Improving -Continue IV Lasix 40 mg bid -Daily weight -Fluid restriction to 1.2 L per day -Continue metoprolol #Probable PNA, likely gram negative pneumonia -wbc trending down. 12.9<< 20.7 -Patient presented with cough and SOB -Cxr was negative for infiltrate but showed dependent right pleural effusion -Follow up on Blood cx -Yet to give sputum for gram stain and cx -Continue IV Levaquin #DAYANARA -Likely to pre-renal azotemia vs cardio-renal syndrome -Creatine trending down -Continue to monitor renal function whilst on diuretics #Hypokalemia due to loop diuretics use -Replete IV #DM-II -Continue home meds -SSI -accucheks 4x daily -Hypoglycemic protocol #A-fib -Rate controlled -Continue Diltiazem and metoprolol -On Xarelto for chronic anti-coagulation #COPD -Appears stable. No wheezing -Continue home medication #Physical deconditioning -PT/OT #Diet -Diabetic #Code -DNI/DNR
[2019-04-06] MEDS ORDERED: Sodium Chloride 0.9% 500 ML IV ONE (11:37)
[2019-04-06] MEDS ORDERED: Sodium Chloride 0.9% 500 ML IV SCH (12:00)
[2019-04-06] MEDS: Insulin Lispro 100 Units/ML 3 ML Vial SUBCUT SCH ×3 (12:01→21:32)
[2019-04-06] MEDS: Zolpidem 5 MG Tab PO SCH (20:07)
[2019-04-06] MEDS: Simvastatin 10 MG Tab PO SCH (20:07)
[2019-04-06] MEDS: Potassium Chloride 10 MEQ Tab.ER PO SCH (20:07)
[2019-04-06] MEDS ORDERED: Calcium Carbonate 500 MG Tab.Chew PO PRN (21:00)
[2019-04-06] MEDS ORDERED: Famotidine 20 MG Tab PO PRN (21:02)
[2019-04-07 07:17] LABS: ANION GAP 13.9
[2019-04-07] MEDS: Albuterol/Ipratropium 3.0-0.5 MG/3 ML Neb Soln NEB SCH ×4 (07:31→20:13)
[2019-04-07] MEDS: Insulin Lispro 100 Units/ML 3 ML Vial SUBCUT SCH ×4 (07:58→21:58)
[2019-04-07] MEDS: Furosemide 40 MG/4 ML VIAL IVPUSH SCH ×2 (09:37→15:41)
[2019-04-07] MEDS: predniSONE 5 MG Tab PO SCH (09:37)
[2019-04-07] MEDS: Loratadine 10 MG Tab PO SCH (09:37)
[2019-04-07] MEDS: Multivitamins,Therapeutic Tab PO SCH (09:37)
[2019-04-07] MEDS: Finasteride 5 MG Tab PO SCH (09:37)
[2019-04-07] MEDS: Ferrous Sulfate 325 MG Tab PO SCH ×3 (09:37→17:59)
[2019-04-07] MEDS: metFORMIN 500 MG Tab PO SCH ×2 (09:37→17:58)
[2019-04-07] MEDS: Formoterol/Mometasone 200-5 MCG 8.8 GM Inhaler IH SCH ×2 (09:39→20:13)
[2019-04-07] MEDS: APIXABAN 5 MG PO SCH ×2 (09:40→20:13)
--- NOTE | 2019-04-07 12:20 | PCM.PN ---
- General Info Date of Service: 04/07/19 Admission Dx/Problem (Free Text): Admission Diagnosis/Problem Admission Diagnosis/Problem Pneumonia/Diastolic CHF Subjective Update: Today patient stated that he is feeling better. His shortness breath and cough improved. He is not short of breath while laying in bed. He denies new symptoms. He denies fever, chills, chest pain, abdominal pain, diarrhea, urinary symptoms, swelling in the legs - Patient Data Vitals - Most Recent: Last Vital Signs Temp 36.6 C 04/07/19 11:28 Pulse 74 04/07/19 11:28 Resp 20 04/07/19 11:28 BP 96/70 04/07/19 11:28 Pulse Ox 97 04/07/19 11:34 Weight - Most Recent: 84.822 kg I&O - Last 24 Hours: Intake & Output 04/06/19 04/07/19 04/07/19 22:59 06:59 14:59 Intake Total 1360 200 100 Output Total 400 1000 Balance 960 200 -900 Lab Results Last 24 Hours: Laboratory Results - last 24 hr 04/06/19 04/06/19 04/07/19 Range/Units 16:34 20:45 06:25 WBC 11.0 H (5.0-10.0) 10^3/uL RBC 4.63 (4.6-6.2) 10^6/uL Hgb 13.3 L (14.0-18.0) g/dL Hct 42.5 (40.0-54.0) % MCV 91.8 (80-100) fL MCH 28.7 (27.0-34.0) pg MCHC 31.3 L (33.0-35.0) g/dL Plt Count 171 (150-450) 10^3/uL Neut % (Auto) 70.2 (42.2-75.2) % Lymph % (Auto) 18.3 L (20.5-50.1) % [place] % (Auto) 9.6 H (2-8) % Eos % (Auto) 1.2 (1.0-3.0) % Baso % (Auto) 0.7 (0.0-1.0) % Add Manual Diff Yes Neutrophils % (Manual) 64 (42-75) % Band Neutrophils % 6 % Lymphocytes % (Manual) 21 (20-50) % Monocytes % (Manual) 9 H (2-8) % Sodium (135-145) mmol/L Potassium (3.6-5.0) mmol/L Chloride (101-111) mmol/L Carbon Dioxide (21.0-31.0) mmol/L Anion Gap BUN (7-18) mg/dL Creatinine (0.6-1.3) mg/dL Est Cr Clr Drug Dosing mL/min Estimated GFR (MDRD) Glucose (74-105) mg/dL POC Glucose 146 H 125 H (83-110) mg/dl Calcium (8.4-10.2) mg/dl 04/07/19 04/07/19 04/07/19 Range/Units 06:25 07:33 11:36 WBC (5.0-10.0) 10^3/uL RBC (4.6-6.2) 10^6/uL Hgb (14.0-18.0) g/dL Hct (40.0-54.0) % MCV (80-100) fL MCH (27.0-34.0) pg MCHC (33.0-35.0) g/dL Plt Count (150-450) 10^3/uL Neut % (Auto) (42.2-75.2) % Lymph % (Auto) (20.5-50.1) % [place] % (Auto) (2-8) % Eos % (Auto) (1.0-3.0) % Baso % (Auto) (0.0-1.0) % Add Manual Diff Neutrophils % (Manual) (42-75) % Band Neutrophils % % Lymphocytes % (Manual) (20-50) % Monocytes % (Manual) (2-8) % Sodium 141 (135-145) mmol/L Potassium 3.9 (3.6-5.0) mmol/L Chloride 94 L (101-111) mmol/L Carbon Dioxide 37.0 H (21.0-31.0) mmol/L Anion Gap 13.9 BUN 25 H (7-18) mg/dL Creatinine 1.5 H (0.6-1.3) mg/dL Est Cr Clr Drug Dosing 30.75 mL/min Estimated GFR (MDRD) 44 Glucose 141 H (74-105) mg/dL POC Glucose 133 H 169 H (83-110) mg/dl Calcium 8.6 (8.4-10.2) mg/dl [place] Results Last 24 Hours: Microbiology 04/06/19 20:38 Gram Stain - Final Sputum - Expectorated 04/05/19 15:34 Aerobic Blood Culture - Preliminary Blood - Venous NO GROWTH AFTER 1 DAY Anaerobic Blood Culture - Preliminary NO GROWTH AFTER 1 DAY 04/05/19 15:40 Aerobic Blood Culture - Preliminary Blood - Venous - Lab Draw NO GROWTH AFTER 1 DAY Anaerobic Blood Culture - Preliminary NO GROWTH AFTER 1 DAY Med Orders - Current: Current Medications Acetaminophen (Tylenol) 650 mg PO Q4H PRN PRN Reason: Pain (Mild 1-3)/fever Last Admin: 04/06/19 14:57 Dose: 650 mg Albuterol (Proventil Neb Soln) 2.5 mg INH Q6HRRT PRN PRN Reason: Shortness of Breath Albuterol/Ipratropium (Duoneb 3.0-0.5 Mg/3 Ml) 3 ml NEB QIDRT [facility] Last Admin: 04/07/19 11:32 Dose: 3 ml Bisacodyl (Dulcolax) 5 mg PO DAILY PRN PRN Reason: Constipation Calcium Carbonate/Glycine (Tums) 1,000 mg PO Q8H PRN PRN Reason: Indigestion Clotrimazole (Lotrimin Af 1% Crm) 0 gm TOP BID PRN PRN Reason: Rash Docusate Sodium (Colace) 100 mg PO BID PRN PRN Reason: Constipation Famotidine (Pepcid) 20 mg PO BID PRN PRN Reason: Indigestion Ferrous Sulfate (Ferrous Sulfate) 325 mg PO TID@0800,1200,1700 [facility] Last Admin: 04/07/19 09:37 Dose: 325 mg Finasteride (Proscar) 5 mg PO DAILY [facility] Last Admin: 04/07/19 09:37 Dose: 5 mg Furosemide (Lasix) 40 mg IVPUSH BID@0800,1400 [facility] Last Admin: 04/07/19 09:37 Dose: 40 mg Guaifenesin (Mucus Relief) 200 mg PO TID [facility] Last Admin: 04/07/19 09:37 Dose: 200 mg Hydroxyzine HCl (Atarax) 25 mg PO Q8HR PRN PRN Reason: Anxiety Last Admin: 04/06/19 20:07 Dose: 25 mg Levofloxacin/Dextrose 750 mg/ (Premix) 150 mls @ 100 mls/hr IV Q48H [facility] Sodium Chloride (Normal Saline) 500 mls @ 999 mls/hr IV ONETIME [facility] Last Admin: 04/06/19 11:40 Dose: 200 mls/hr Insulin Human Lispro (Humalog) 0 unit SUBCUT WITHMEALSANDBED [facility]; Protocol Last Admin: 04/07/19 07:58 Dose: Not Given Loratadine (Claritin) 10 mg PO DAILY [facility] Last Admin: 04/07/19 09:37 Dose: 10 mg Metformin HCl (Glucophage) 500 mg PO BIDMEALS [facility] Last Admin: 04/07/19 09:37 Dose: 500 mg Metoprolol Tartrate (Lopressor) 12.5 mg PO BID [facility] Mometasone Furoate/Formoterol Fumar (Dulera 200-5 Mcg) 0 puff IH BID [facility] Last Admin: 04/07/19 09:39 Dose: 2 puff Multivitamins (Thera) 1 each PO DAILY [facility] Last Admin: 04/07/19 09:37 Dose: 1 each Apixaban [Eliquis] 5 (Mg *Own Med*) 5 mg PO BID [facility] Last Admin: 04/07/19 09:40 Dose: 5 mg Potassium Chloride (Klor-Con 10) 40 meq PO BEDTIME [facility] Last Admin: 04/06/19 20:07 Dose: 40 meq Prednisone (Prednisone) 5 mg PO DAILY [facility] Last Admin: 04/07/19 09:37 Dose: 5 mg Simvastatin (Zocor) 10 mg PO BEDTIME [facility] Last Admin: 04/06/19 20:07 Dose: 10 mg Sodium Chloride (Saline Flush) 10 ml FLUSH ASDIRECTED PRN PRN Reason: Keep Vein Open Zolpidem Tartrate (Ambien) 5 mg PO BEDTIME [facility] Last Admin: 04/06/19 20:07 Dose: 5 mg Discontinued Medications Acetaminophen (Tylenol) 325 mg PO Q6H PRN PRN Reason: Pain/Fever Albuterol/Ipratropium (Duoneb 3.0-0.5 Mg/3 Ml) 3 ml NEB ONETIME ONE Stop: 04/05/19 14:49 Last Admin: 04/05/19 14:56 Dose: 3 ml Budesonide (Pulmicort) 0.5 mg NEB BIDRT [facility] Last Admin: 04/06/19 10:30 Dose: Not Given Diltiazem HCl (Cardizem Cd) 180 mg PO DAILY [facility] Last Admin: 04/06/19 08:48 Dose: 180 mg Ferrous Sulfate (Ferrous Sulfate) 325 mg PO TIDAC [facility] Last Admin: 04/05/19 20:11 Dose: 325 mg Furosemide (Lasix) 40 mg IVPUSH BID@0900,2000 [facility] Last Admin: 04/05/19 19:29 Dose: 40 mg Heparin Sodium (Porcine) (Heparin Sodium) 5,000 units SUBCUT Q12HR [facility] Levofloxacin/Dextrose 500 mg/ (Premix) 100 mls @ 100 mls/hr IV ONETIME ONE Stop: 04/05/19 17:41 Last Infusion: 04/05/19 18:12 Dose: Infused Potassium Chloride 10 meq/ (Premix) 100 mls @ 100 mls/hr IV Q2H [facility] Stop: 04/06/19 14:59 Last Admin: 04/06/19 13:24 Dose: 50 mls/hr Metolazone (Zaroxolyn) 1.25 mg PO DAILY [facility] Stop: 04/06/19 09:01 Last Admin: 04/06/19 10:38 Dose: 1.25 mg Metoprolol Tartrate (Lopressor) 12.5 mg PO BID [facility] Last Admin: 04/06/19 08:50 Dose: 12.5 mg Non-Formulary Medication (Olopatadine Hcl [Olopatadine Hcl]) 1 drop OP ASDIRECTED PRN PRN Reason: Itching Sodium Chloride (Saline Flush) 10 ml FLUSH ASDIRECTED PRN PRN Reason: Keep Vein Open Last Admin: 04/05/19 17:12 Dose: 10 ml - Exam General: Alert, Oriented, Cooperative, No Acute Distress HEENT: Pupils Equal, Pupils Reactive, EOMI Neck: Supple, Trachea Midline, No JVD Lungs: Normal Respiratory Effort, Crackles (Bibasilar, mild). No: Rhonchi, Wheezing GI/Abdominal Exam: Normal Bowel Sounds, Soft, Non-Tender, No Organomegaly, No Distention, No Abnormal Bruit, No Mass Extremities: Normal Inspection, Normal Range of Motion, Non-Tender, No Pedal Edema, Normal Capillary Refill - Problem List Review Problem List Initiated/Reviewed/Updated: Yes - My Orders Last 24 Hours: My Active Orders 04/06/19 20:38 CULTURE SPUTUM + SMEAR [RM] Routine 04/06/19 21:00 Calcium Carbonate [Tums] 1,000 mg PO Q8H PRN 04/06/19 21:02 Famotidine [Pepcid] 20 mg PO BID PRN 04/07/19 11:30 Metoprolol Tartrate [Lopressor] 12.5 mg PO BID 04/08/19 06:00 CXR [Chest 2V] [CR] Routine - Plan Plan:: Rodger is 88 y/o resident of [facility] with PMH of DM-II, A-fib, HFpEF, COPD, who was brought to the ED for increasing SOB and palpitation. Initial work up in the ED showed wbc 20.7 with left shift, BNP 346. On admission EKG showed A- fib with controlled ventricular rate and Cxr showed dependent right pleural effusion with no consolidation or infiltrates. WBC 20K. Patient was admitted for diastolic CHF exacerbation vs probable pneumonia. He was started on IV diuresis and abx. #Acute on chronic HFpEF -Improving -Continue IV Lasix 40 mg bid Daily weight Continue Fluid restriction to 1.2 L per day Continue metoprolol #Hypotension Patient developed hypotension while hospitalized so his metoprolol and Cardizem were held -Blood pressure improved so I'm restarting metoprolol today -We'll consider restarting Cardizem tomorrow if blood pressure is not low #Probable pneumonia as patient was having cough and shortness breath -wbc trending down. 11.0<<12.9<< 20.7 -Follow up on Blood cx and sputum culture -Continue IV Levaquin -Chest x-ray ordered for follow-up tomorrow #Acute renal failure -Likely due to pre-renal azotemia vs cardio-renal syndrome -Creatine trending down Continue to monitor renal function closely Avoid nephrotoxic medications Keep potassium level>4 and magnesium level>2 #Hypokalemia due to loop diuretics use Replete IV #DM-II Continue home anti-hyperglycemic meds SSI Hypoglycemic protocol #Atrial fibrillation -Rate controlled Continue metoprolol Continue Xarelto #COPD I do not appreciate exacerbation No wheezing -Continue home medication #Physical deconditioning -PT/OT -DVT prophylaxis: On Xarelto for a-fib -Diet: Diabetic -Code: DNI/DNR
[2019-04-07] MEDS: Metoprolol Tartrate 25 MG Tab PO SCH ×2 (12:28→20:14)
[2019-04-07] MEDS ORDERED: Levofloxacin/Dextrose 5%-Water 750 MG in Premix Bag 1 BAG IV SCH (18:00)
[2019-04-07] MEDS: Acetaminophen 325 MG Tab PO PRN (18:16)
[2019-04-07] MEDS: Potassium Chloride 10 MEQ Tab.ER PO SCH (20:12)
[2019-04-07] MEDS: Simvastatin 10 MG Tab PO SCH (20:12)
[2019-04-07] MEDS: hydrOXYzine HCl 25 MG Tab PO PRN (20:13)
[2019-04-07] MEDS: Zolpidem 5 MG Tab PO SCH (22:08)
[2019-04-08 06:39] LABS: ANION GAP 15.8
[2019-04-08] MEDS ORDERED: traZODone 50 MG Tab PO PRN (06:59)
[2019-04-08] MEDS ORDERED: Potassium Chloride 10 MEQ Tab.ER PO ONE (07:01)
[2019-04-08] MEDS ORDERED: Potassium Chloride 10 MEQ Tab.ER PO SCH (07:06)
[2019-04-08] MEDS: Albuterol/Ipratropium 3.0-0.5 MG/3 ML Neb Soln NEB SCH ×4 (07:26→20:24)
[2019-04-08] MEDS: Insulin Lispro 100 Units/ML 3 ML Vial SUBCUT SCH ×4 (08:18→22:14)
[2019-04-08] MEDS: Furosemide 100 MG/10 ML SDV IVPUSH SCH ×3 (08:21→17:35)
[2019-04-08] MEDS: APIXABAN 5 MG PO SCH ×2 (08:32→20:24)
[2019-04-08] MEDS: Finasteride 5 MG Tab PO SCH (08:36)
[2019-04-08] MEDS: Ferrous Sulfate 325 MG Tab PO SCH ×3 (08:37→17:32)
[2019-04-08] MEDS: Formoterol/Mometasone 200-5 MCG 8.8 GM Inhaler IH SCH ×2 (08:37→20:24)
[2019-04-08] MEDS: Multivitamins,Therapeutic Tab PO SCH (08:38)
[2019-04-08] MEDS: Loratadine 10 MG Tab PO SCH (08:39)
[2019-04-08] MEDS: metFORMIN 500 MG Tab PO SCH ×2 (08:39→17:32)
[2019-04-08] MEDS: Metoprolol Tartrate 25 MG Tab PO SCH ×2 (08:40→20:38)
[2019-04-08] MEDS: predniSONE 5 MG Tab PO SCH (08:42)
[2019-04-08] MEDS: Potassium Chloride 10 MEQ Tab.ER PO SCH ×3 (08:43→17:33)
[2019-04-08] MEDS ORDERED: Benzocaine/Docusate Sodium 20-283 MG/5 ML Enema RECTAL ONE (11:00)
[2019-04-08 18:48] LABS: ANION GAP 16.3
--- NOTE | 2019-04-08 20:15 | PCM.PN ---
- General Info Date of Service: 04/08/19 Admission Dx/Problem (Free Text): Admission Diagnosis/Problem Admission Diagnosis/Problem Pneumonia/Diastolic CHF Subjective Update: Today patient stated that he is feeling better. His shortness breath and cough continue to improved. He is not short of breath while laying in bed. Patient had small amount of dark blood in the toilet after having large bowel movement after being constipated. Patient stated that he had blood in stool when he gets constipated. He said he had colonoscopy done years ago and was normal. He denies new symptoms. He denies fever, chills, chest pain, abdominal pain, diarrhea, urinary symptoms, swelling in the legs - Patient Data Vitals - Most Recent: Last Vital Signs Temp 36.7 C 04/08/19 15:07 Pulse 92 04/08/19 15:07 Resp 22 H 04/08/19 15:07 BP 94/61 04/08/19 15:07 Pulse Ox 96 04/08/19 16:47 Weight - Most Recent: 83.574 kg I&O - Last 24 Hours: Intake & Output 04/08/19 04/08/19 04/08/19 06:59 14:59 22:59 Intake Total 50 290 Balance 50 290 Lab Results Last 24 Hours: Laboratory Results - last 24 hr 04/07/19 04/08/19 04/08/19 Range/Units 21:19 05:48 05:48 WBC 11.8 H (5.0-10.0) 10^3/uL RBC 4.56 L (4.6-6.2) 10^6/uL Hgb 13.2 L (14.0-18.0) g/dL Hct 42.3 (40.0-54.0) % MCV 92.8 (80-100) fL MCH 28.9 (27.0-34.0) pg MCHC 31.2 L (33.0-35.0) g/dL Plt Count 173 (150-450) 10^3/uL Neut % (Auto) 70.4 (42.2-75.2) % Lymph % (Auto) 20.1 L (20.5-50.1) % [place] % (Auto) 7.6 (2-8) % Eos % (Auto) 1.3 (1.0-3.0) % Baso % (Auto) 0.6 (0.0-1.0) % Add Manual Diff Yes Neutrophils % (Manual) 70 (42-75) % Band Neutrophils % 1 % Lymphocytes % (Manual) 16 L (20-50) % Atypical Lymphs % Not Reportable Monocytes % (Manual) 13 H (2-8) % Sodium 142 (135-145) mmol/L Potassium 3.8 (3.6-5.0) mmol/L Chloride 94 L (101-111) mmol/L Carbon Dioxide 36.0 H (21.0-31.0) mmol/L Anion Gap 15.8 BUN 26 H (7-18) mg/dL Creatinine 1.5 H (0.6-1.3) mg/dL Est Cr Clr Drug Dosing 30.75 mL/min Estimated GFR (MDRD) 44 Glucose 163 H (74-105) mg/dL POC Glucose 82 L (83-110) mg/dl Calcium 8.9 (8.4-10.2) mg/dl Magnesium 2.0 (1.8-2.5) mg/dL B-Natriuretic Peptide (0-100) pg/ml 04/08/19 04/08/19 04/08/19 Range/Units 05:48 07:51 11:22 WBC (5.0-10.0) 10^3/uL RBC (4.6-6.2) 10^6/uL Hgb (14.0-18.0) g/dL Hct (40.0-54.0) % MCV (80-100) fL MCH (27.0-34.0) pg MCHC (33.0-35.0) g/dL Plt Count (150-450) 10^3/uL Neut % (Auto) (42.2-75.2) % Lymph % (Auto) (20.5-50.1) % [place] % (Auto) (2-8) % Eos % (Auto) (1.0-3.0) % Baso % (Auto) (0.0-1.0) % Add Manual Diff Neutrophils % (Manual) (42-75) % Band Neutrophils % % Lymphocytes % (Manual) (20-50) % Atypical Lymphs % Monocytes % (Manual) (2-8) % Sodium (135-145) mmol/L Potassium (3.6-5.0) mmol/L Chloride (101-111) mmol/L Carbon Dioxide (21.0-31.0) mmol/L Anion Gap BUN (7-18) mg/dL Creatinine (0.6-1.3) mg/dL Est Cr Clr Drug Dosing mL/min Estimated GFR (MDRD) Glucose (74-105) mg/dL POC Glucose 169 H 127 H (83-110) mg/dl Calcium (8.4-10.2) mg/dl Magnesium (1.8-2.5) mg/dL B-Natriuretic Peptide 179 H (0-100) pg/ml 04/08/19 04/08/19 Range/Units 16:59 18:20 WBC (5.0-10.0) 10^3/uL RBC (4.6-6.2) 10^6/uL Hgb (14.0-18.0) g/dL Hct (40.0-54.0) % MCV (80-100) fL MCH (27.0-34.0) pg MCHC (33.0-35.0) g/dL Plt Count (150-450) 10^3/uL Neut % (Auto) (42.2-75.2) % Lymph % (Auto) (20.5-50.1) % [place] % (Auto) (2-8) % Eos % (Auto) (1.0-3.0) % Baso % (Auto) (0.0-1.0) % Add Manual Diff Neutrophils % (Manual) (42-75) % Band Neutrophils % % Lymphocytes % (Manual) (20-50) % Atypical Lymphs % Monocytes % (Manual) (2-8) % Sodium 140 (135-145) mmol/L Potassium 5.3 H D (3.6-5.0) mmol/L Chloride 96 L (101-111) mmol/L Carbon Dioxide 33.0 H (21.0-31.0) mmol/L Anion Gap 16.3 BUN 25 H (7-18) mg/dL Creatinine 1.7 H (0.6-1.3) mg/dL Est Cr Clr Drug Dosing 27.13 mL/min Estimated GFR (MDRD) 38 Glucose 194 H (74-105) mg/dL POC Glucose 164 H (83-110) mg/dl Calcium 9.1 (8.4-10.2) mg/dl Magnesium 2.2 (1.8-2.5) mg/dL B-Natriuretic Peptide (0-100) pg/ml [place] Results Last 24 Hours: Microbiology 04/05/19 15:34 Aerobic Blood Culture - Preliminary Blood - Venous NO GROWTH AFTER 3 DAYS Anaerobic Blood Culture - Preliminary NO GROWTH AFTER 3 DAYS 04/05/19 15:40 Aerobic Blood Culture - Preliminary Blood - Venous - Lab Draw NO GROWTH AFTER 3 DAYS Anaerobic Blood Culture - Preliminary NO GROWTH AFTER 3 DAYS 04/06/19 20:38 Gram Stain - Final Sputum - Expectorated Sputum Culture - Preliminary Yeast Isolated Med Orders - Current: Current Medications Acetaminophen (Tylenol) 650 mg PO Q4H PRN PRN Reason: Pain (Mild 1-3)/fever Last Admin: 04/07/19 18:16 Dose: 650 mg Albuterol (Proventil Neb Soln) 2.5 mg INH Q6HRRT PRN PRN Reason: Shortness of Breath Last Admin: 04/08/19 01:13 Dose: 2.5 mg Albuterol/Ipratropium (Duoneb 3.0-0.5 Mg/3 Ml) 3 ml NEB QIDRT [facility] Last Admin: 04/08/19 16:46 Dose: 3 ml Bisacodyl (Dulcolax) 5 mg PO DAILY PRN PRN Reason: Constipation Calcium Carbonate/Glycine (Tums) 1,000 mg PO Q8H PRN PRN Reason: Indigestion Last Admin: 04/08/19 10:19 Dose: 1,000 mg Clotrimazole (Lotrimin Af 1% Crm) 0 gm TOP BID PRN PRN Reason: Rash Docusate Sodium (Colace) 100 mg PO BID PRN PRN Reason: Constipation Last Admin: 04/08/19 10:18 Dose: 100 mg Famotidine (Pepcid) 20 mg PO BID PRN PRN Reason: Indigestion Last Admin: 04/08/19 10:19 Dose: 20 mg Ferrous Sulfate (Ferrous Sulfate) 325 mg PO TID@0800,1200,1700 [facility] Last Admin: 04/08/19 17:32 Dose: 325 mg Finasteride (Proscar) 5 mg PO DAILY [facility] Last Admin: 04/08/19 08:36 Dose: 5 mg Furosemide (Lasix) 40 mg IVPUSH TIDMEALS [facility] Guaifenesin (Mucus Relief) 200 mg PO TID [facility] Last Admin: 04/08/19 14:19 Dose: 200 mg Hydroxyzine HCl (Atarax) 25 mg PO Q8HR PRN PRN Reason: Anxiety Last Admin: 04/07/19 20:13 Dose: 25 mg Levofloxacin/Dextrose 750 mg/ (Premix) 150 mls @ 100 mls/hr IV Q48H [facility] Last Admin: 04/07/19 17:55 Dose: 100 mls/hr Sodium Chloride (Normal Saline) 500 mls @ 999 mls/hr IV ONETIME [facility] Last Admin: 04/06/19 11:40 Dose: 200 mls/hr Insulin Human Lispro (Humalog) 0 unit SUBCUT WITHMEALSANDBED [facility]; Protocol Last Admin: 04/08/19 17:32 Dose: 1 unit Loratadine (Claritin) 10 mg PO DAILY [facility] Last Admin: 04/08/19 08:39 Dose: 10 mg Metformin HCl (Glucophage) 500 mg PO BIDMEALS [facility] Last Admin: 04/08/19 17:32 Dose: 500 mg Metoprolol Tartrate (Lopressor) 12.5 mg PO BID [facility] Last Admin: 04/08/19 08:40 Dose: 12.5 mg Mometasone Furoate/Formoterol Fumar (Dulera 200-5 Mcg) 0 puff IH BID [facility] Last Admin: 04/08/19 08:37 Dose: 2 puff Multivitamins (Thera) 1 each PO DAILY [facility] Last Admin: 04/08/19 08:38 Dose: 1 each Apixaban [Eliquis] 5 (Mg *Own Med*) 5 mg PO BID [facility] Last Admin: 04/08/19 08:32 Dose: 5 mg Potassium Chloride (Klor-Con 10) 10 meq PO TIDMEALS [facility] Prednisone (Prednisone) 5 mg PO DAILY [facility] Last Admin: 04/08/19 08:42 Dose: 5 mg Simvastatin (Zocor) 10 mg PO BEDTIME [facility] Last Admin: 04/07/19 20:12 Dose: 10 mg Sodium Chloride (Saline Flush) 10 ml FLUSH ASDIRECTED PRN PRN Reason: Keep Vein Open Trazodone HCl (Trazodone) 25 mg PO BEDTIME PRN PRN Reason: Insomnia Zolpidem Tartrate (Ambien) 5 mg PO BEDTIME [facility] Last Admin: 04/07/19 22:08 Dose: 5 mg Discontinued Medications Acetaminophen (Tylenol) 325 mg PO Q6H PRN PRN Reason: Pain/Fever Albuterol/Ipratropium (Duoneb 3.0-0.5 Mg/3 Ml) 3 ml NEB ONETIME ONE Stop: 04/05/19 14:49 Last Admin: 04/05/19 14:56 Dose: 3 ml Budesonide (Pulmicort) 0.5 mg NEB BIDRT [facility] Last Admin: 04/06/19 10:30 Dose: Not Given Diltiazem HCl (Cardizem Cd) 180 mg PO DAILY [facility] Last Admin: 04/06/19 08:48 Dose: 180 mg Docusate Sodium/Benzocaine (Enemeez Plus Mini Enema) 1 each RECTAL ONETIME ONE Stop: 04/08/19 11:01 Last Admin: 04/08/19 12:35 Dose: 1 each Ferrous Sulfate (Ferrous Sulfate) 325 mg PO TIDAC [facility] Last Admin: 04/05/19 20:11 Dose: 325 mg Furosemide (Lasix) 40 mg IVPUSH BID@0900,2000 [facility] Last Admin: 04/05/19 19:29 Dose: 40 mg Furosemide (Lasix) 40 mg IVPUSH BID@0800,1400 [facility] Last Admin: 04/07/19 15:41 Dose: 40 mg Furosemide (Lasix) 60 mg IVPUSH TIDMEALS [facility] Last Admin: 04/08/19 17:35 Dose: Not Given Heparin Sodium (Porcine) (Heparin Sodium) 5,000 units SUBCUT Q12HR [facility] Levofloxacin/Dextrose 500 mg/ (Premix) 100 mls @ 100 mls/hr IV ONETIME ONE Stop: 04/05/19 17:41 Last Infusion: 04/05/19 18:12 Dose: Infused Potassium Chloride 10 meq/ (Premix) 100 mls @ 100 mls/hr IV Q2H [facility] Stop: 04/06/19 14:59 Last Admin: 04/06/19 13:24 Dose: 50 mls/hr Metolazone (Zaroxolyn) 1.25 mg PO DAILY [facility] Stop: 04/06/19 09:01 Last Admin: 04/06/19 10:38 Dose: 1.25 mg Metoprolol Tartrate (Lopressor) 12.5 mg PO BID [facility] Last Admin: 04/06/19 08:50 Dose: 12.5 mg Non-Formulary Medication (Olopatadine Hcl [Olopatadine Hcl]) 1 drop OP ASDIRECTED PRN PRN Reason: Itching Potassium Chloride (Klor-Con 10) 40 meq PO BEDTIME [facility] Last Admin: 04/07/19 20:12 Dose: 40 meq Potassium Chloride (Klor-Con 10) 20 meq PO ONETIME ONE Stop: 04/08/19 07:02 Last Admin: 04/08/19 08:43 Dose: 20 meq Potassium Chloride (Klor-Con 10) 20 meq PO TID [facility] Last Admin: 04/08/19 10:53 Dose: Not Given Potassium Chloride (Klor-Con 10) 20 meq PO TIDMEALS [facility] Last Admin: 04/08/19 17:33 Dose: 20 meq Sodium Chloride (Saline Flush) 10 ml FLUSH ASDIRECTED PRN PRN Reason: Keep Vein Open Last Admin: 04/05/19 17:12 Dose: 10 ml - Exam General: Alert, Oriented, Cooperative. No: No Acute Distress, Mild Distress, Moderate Distress, Severe Distress, Sedated, Lethargic, Obtunded HEENT: Pupils Equal, Pupils Reactive, EOMI, Mucous Membr. Moist/[place] Neck: Supple, Trachea Midline, No JVD Lungs: Clear to Auscultation, Normal Respiratory Effort, Decreased Breath Sounds (In bases), Crackles (In bases). No: Rhonchi, Rub, Stridor, Wheezing Cardiovascular: Regular Rate, Regular Rhythm, No Murmurs GI/Abdominal Exam: Normal Bowel Sounds, Soft, Non-Tender, No Organomegaly, No Distention (Male) Exam: Other (Rectal exam: I did not appreciated external hemorrhoids or bleeding. Normal color stool returned on my finger without blood. No lumps or masses felt.) Extremities: Normal Inspection, Normal Range of Motion, Non-Tender, No Pedal Edema, Normal Capillary Refill Skin: Warm, Dry Neurological: No New Focal Deficit Psy/Mental Status: Alert, Normal Affect, Normal Mood - Problem List Review Problem List Initiated/Reviewed/Updated: Yes - My Orders Last 24 Hours: My Active Orders 04/08/19 06:59 traZODone 25 mg PO BEDTIME PRN 04/09/19 05:11 BASIC METABOLIC PANEL,BMP [CHEM] AM CBC WITH AUTO DIFF [HEME] AM 04/09/19 08:00 Furosemide [Lasix] 40 mg IVPUSH TIDMEALS Potassium Chloride [Klor-Con 10] 10 meq PO TIDMEALS - Plan Plan:: Rodger is 88 y/o resident of [facility] with PMH of DM-II, A-fib, HFpEF, COPD, who was brought to the ED for increasing SOB and palpitation. Initial work up in the ED showed wbc 20.7 with left shift, BNP 346. On admission EKG showed A- fib with controlled ventricular rate and Cxr showed dependent right pleural effusion with no consolidation or infiltrates. WBC 20K. Patient was admitted for diastolic CHF exacerbation vs probable pneumonia. He was started on IV diuresis and abx. #Acute on chronic HFpEF -Improving -increased from 40 mg twice a day 60 mg 3 times a day (received 2 doses only), however blood pressure went down so I changing to 40 mg 3 times a day and skimming my dose Daily weight Continue Fluid restriction to 1.2 L per day Continue metoprolol #Hypotension Patient developed hypotension earlier while hospitalized so his metoprolol and Cardizem were held. Metoprolol was restarted after her blood pressure improved. -Today he had low blood pressure without symptoms after his Lasix dose increased from 40 mg twice a day 60 mg 3 times a day (received 2 doses only) -I'll change his Lasix to be 40 mg 3 times a day and skip his night dose today. -We'll consider restarting Cardizem tomorrow if blood pressure is not low #Probable pneumonia as patient was having cough and shortness breath -wbc trending down. 11.8<<11.0<<12.9<< 20.7 -Follow up on Blood cx and sputum culture -Continue IV Levaquin -Chest x-ray ordered, awaiting reports #Blood in stool Patient was advised to senior vice president & general counsel with his primary care provider as soon as possible after discharge -We'll check hemoglobin in the morning #Acute renal failure -Likely due to pre-renal azotemia vs cardio-renal syndrome -Creatine trending up after increasing Lasix. Will adjust Lasix again Continue to monitor renal function closely Avoid nephrotoxic medications Keep potassium level>4 and magnesium level>2 #Hyperkalemia Likely from increasing supplemental potassium chloride. Potassium chloride was increased due to increasing in Lasix dose -I am adjusting the potassium dose #Hypokalemia due to loop diuretics use Resolved Replete IV #DM-II Continue home anti-hyperglycemic meds SSI Hypoglycemic protocol #Atrial fibrillation -Rate controlled Continue metoprolol Continue Xarelto #COPD I do not appreciate exacerbation No wheezing Continue home medication #Physical deconditioning -PT/OT -DVT prophylaxis: On Xarelto for a-fib -Diet: Diabetic -Code: DNI/DNR
[2019-04-08] MEDS: Simvastatin 10 MG Tab PO SCH (20:24)
[2019-04-08] MEDS: Zolpidem 5 MG Tab PO SCH (20:24)
[2019-04-08] MEDS: hydrOXYzine HCl 25 MG Tab PO PRN (20:24)
[2019-04-09] MEDS ORDERED: QUEtiapine 25 MG Tab PO ONE (01:30)
[2019-04-09] MEDS: Albuterol/Ipratropium 3.0-0.5 MG/3 ML Neb Soln NEB SCH (07:16)
[2019-04-09 07:41] LABS: ANION GAP 14.4
[2019-04-09] MEDS ORDERED: Furosemide 40 MG/4 ML VIAL IVPUSH SCH (08:00)
[2019-04-09] MEDS: Ferrous Sulfate 325 MG Tab PO SCH (08:24)
[2019-04-09] MEDS: Finasteride 5 MG Tab PO SCH (08:26)
[2019-04-09] MEDS: Loratadine 10 MG Tab PO SCH (08:26)
[2019-04-09] MEDS: Multivitamins,Therapeutic Tab PO SCH (08:27)
[2019-04-09] MEDS: metFORMIN 500 MG Tab PO SCH (08:27)
[2019-04-09] MEDS: predniSONE 5 MG Tab PO SCH (08:27)
[2019-04-09] MEDS: APIXABAN 5 MG PO SCH (08:28)
[2019-04-09] MEDS: Formoterol/Mometasone 200-5 MCG 8.8 GM Inhaler IH SCH (08:29)
[2019-04-09] MEDS: Insulin Lispro 100 Units/ML 3 ML Vial SUBCUT SCH (08:31)
[2019-04-09] MEDS: Metoprolol Tartrate 25 MG Tab PO SCH (08:32)
[2019-04-09 08:33] VITALS: BP 90/40; PULSE 77
[2019-04-09] MEDS ORDERED: Potassium Chloride 10 MEQ Tab.ER PO SCH (09:00)
--- NOTE | 2019-04-09 09:49 | PCM.DCSUM1 ---
Discharge Summary - Hospital Course Free Text/Narrative:: Rodger is 88 y/o resident of [facility] with PMH of DM-II, A-fib, HFpEF, COPD, who was brought to the ED for increasing SOB and palpitation. Initial work up in the ED showed wbc 20.7 with left shift, BNP 346. On admission EKG showed A- fib with controlled ventricular rate and Cxr showed dependent right pleural effusion with no consolidation or infiltrates. WBC 20K. Patient was admitted for diastolic CHF exacerbation vs probable pneumonia. He was started on Lasix 40 mg IV twice a day and potassium chloride 40 mEq orally daily and Levaquin 750 mg every 48 hours. Repeated chest x-ray on 04/08/19 reported bilateral lower lobe pneumonia which could be worse on the right, and superimposed pulmonary edema. Clinically patient is feeling much better. He said his back to his baseline and [facility]. He has not complained for shortness breath, cough, or wheezing. Past 2 days. He has been spitting was physical therapy. He is not requiring oxygen more than his home oxygen. His WBC 10.7 K today. During hospitalization his creatinine was ranging between 1.5- 1.7. He also had 1 episode of blood in stool yesterday. No drop in hemoglobin. For the past 2 nights he has been having difficulty sleeping which is possibly due to unfamiliar environment. had [facility]'ll [facility] the [facility] today and continue his oral diuretics. I'm adding potassium chloride 20 mEq daily and Levaquin 750 mg orally every 48 hours, 4 tablets. He is to follow-up with primary care provider in 5-7 days and discussed blood in the stool and check his potassium at that time. -DVT prophylaxis: On Xarelto for a-fib -Diet: Diabetic -Code: DNI/DNR Diagnosis: Stroke: No - Discharge Data Discharge Date: 04/09/19 Discharge Disposition: DC/Tfer to SNF 03 Condition: Fair - Referral to Home Health Date of Face to Face Encounter: 04/09/19 Primary Care Physician: PCP Unobtainable - Discharge Diagnosis/Problem(s) (1) Pneumonia SNOMED Code(s): 474129577 ICD Code: J18.9 - PNEUMONIA, UNSPECIFIED ORGANISM Status: Acute Current Visit: Yes (2) Anxiety SNOMED Code(s): 66453533 ICD Code: F41.9 - ANXIETY DISORDER, UNSPECIFIED Status: Chronic Current Visit: No (3) Atrial fibrillation SNOMED Code(s): 33109367 ICD Code: I48.91 - UNSPECIFIED ATRIAL FIBRILLATION Status: Chronic Current Visit: No Qualifiers: Atrial fibrillation type: chronic (4) CHF (congestive heart failure) SNOMED Code(s): 04675317 ICD Code: I50.9 - HEART FAILURE, UNSPECIFIED Status: Chronic Current Visit: No Qualifiers: Heart failure type: unspecified Heart failure chronicity: acute on chronic Qualified Code(s): I50.9 - Heart failure, unspecified (5) Type 2 diabetes mellitus without complications SNOMED Code(s): 105871431 ICD Code: E11.9 - TYPE 2 DIABETES MELLITUS WITHOUT COMPLICATIONS Status: Chronic Priority: Medium Current Visit: No Qualifiers: Diabetes mellitus medical terminologist insulin use: without residential use Qualified Code(s): E11.9 - Type 2 diabetes mellitus without complications - Patient Summary/Data Consults: Consultations 04/05/19 17:42 OT Evaluation and Treatment [CONS] Routine PT Evaluation and Treatment [CONS] Routine - Patient Instructions Diet: Heart Healthy Diet, Low Sodium Fluid Restriction: 1500 mL Activity: As Tolerated Showering/Bathing: May Shower Notify Provider of: Fever, Increased Pain, Swelling and Redness, Nausea and/or Vomiting - Discharge Plan *PRESCRIPTION DRUG MONITORING PROGRAM REVIEWED*: No *COPY OF PRESCRIPTION DRUG MONITORING REPORT IN PATIENT FARRUKH: No Prescriptions/Med Rec: Levofloxacin [Levaquin] 750 mg PO Q48H #4 tablet Potassium Chloride [Klor-Con 10] 20 meq PO DAILY #30 tab.er Home Medications: Home Meds Budesonide/Formoterol [Symbicort 160-4.5 MCG] 2 inh INH BID 06/26/15 [History] Loratadine 10 mg PO DAILY 05/22/16 [History] Multivitamin [Multivitamins] 1 each PO DAILY 05/22/16 [History] Docusate Sodium [Colace] 100 mg PO BID PRN 10/08/18 [History] Finasteride 5 mg PO DAILY 10/08/18 [History] guaiFENesin [Guaifenesin] 200 mg PO TID 10/08/18 [History] metFORMIN [Glucophage] 500 mg PO BID 10/08/18 [History] Apixaban [Eliquis] 5 mg PO BID 02/13/19 [History] Ferrous Sulfate [Ferosul] 325 mg PO TID 02/13/19 [History] Metoprolol Tartrate 12.5 mg PO BID 02/13/19 [History] Olopatadine HCl 1 drop OP ASDIRECTED PRN 02/13/19 [History] Zolpidem Tartrate [Ambien] 5 mg PO BEDTIME 02/13/19 [History] Acetaminophen [Tylenol] 325 mg PO Q6H PRN 03/11/19 [History] Albuterol Sulfate 1 inh INH Q6H PRN 03/11/19 [History] Albuterol/Ipratropium [DuoNeb 3.0-0.5 MG/3 ML] 3 ml NEB QID 03/11/19 [History] Bisacodyl [Dulcolax] 5 mg PO DAILY PRN 03/11/19 [History] Clotrimazole [Clotrimazole 1%] 1 applic TOP BID PRN 03/11/19 [History] Simvastatin [Zocor] 10 mg PO BEDTIME 03/11/19 [History] predniSONE [Prednisone] 5 mg PO DAILY 03/11/19 [History] Acetaminophen 650 mg PO BID 03/12/19 [History] Budesonide [Pulmicort] 0.5 mg NEB BIDRT neb 03/24/19 [Rx] Furosemide [Lasix] 60 mg PO BID #30 tab 03/24/19 [Rx] hydrOXYzine HCl [hydrOXYzine] 25 mg PO Q8HR PRN 04/05/19 [History] metOLazone [Zaroxolyn] 1.25 mg PO ASDIRECTED 04/05/19 [History] Levofloxacin [Levaquin] 750 mg PO Q48H #4 tablet 04/09/19 [Rx] Potassium Chloride [Klor-Con 10] 20 meq PO DAILY #30 tab.er 04/09/19 [Rx] Forms: ED Department Discharge - Discharge Summary/Plan Comment DC Time >30 min.: No - General Info Date of Service: 04/09/19 Admission Dx/Problem (Free Text: Admission Diagnosis/Problem Admission Diagnosis/Problem Pneumonia/Diastolic CHF Subjective Update: Today patient has no complaints and denies fever, chills, shortness breath, cough, wheezing, headache, upper respiratory symptoms, chest pain, abdominal pain, diarrhea, blood in stool, black stool urinary symptoms, swelling in the legs, unilateral weakness/numbness/tingling, any other symptoms or concern. - Patient Data Vitals - Most Recent: Last Vital Signs Temp 36.8 C 04/09/19 04:00 Pulse 77 04/09/19 08:32 Resp 28 H 04/09/19 05:58 BP 90/40 L 04/09/19 08:32 Pulse Ox 96 04/09/19 05:58 Weight - Most Recent: 82.611 kg I&O - Last 24 hours: Intake & Output 04/08/19 04/09/19 04/09/19 22:59 06:59 14:59 Intake Total 290 250 Balance 290 250 Lab Results - Last 24 hrs: Laboratory Results - last 24 hr 04/08/19 04/08/19 04/08/19 Range/Units 11:22 16:59 18:20 WBC (5.0-10.0) 10^3/uL RBC (4.6-6.2) 10^6/uL Hgb (14.0-18.0) g/dL Hct (40.0-54.0) % MCV (80-100) fL MCH (27.0-34.0) pg MCHC (33.0-35.0) g/dL Plt Count (150-450) 10^3/uL Neut % (Auto) (42.2-75.2) % Lymph % (Auto) (20.5-50.1) % [place] % (Auto) (2-8) % Eos % (Auto) (1.0-3.0) % Baso % (Auto) (0.0-1.0) % Add Manual Diff Neutrophils % (Manual) (42-75) % Band Neutrophils % % Lymphocytes % (Manual) (20-50) % Monocytes % (Manual) (2-8) % Sodium 140 (135-145) mmol/L Potassium 5.3 H D (3.6-5.0) mmol/L Chloride 96 L (101-111) mmol/L Carbon Dioxide 33.0 H (21.0-31.0) mmol/L Anion Gap 16.3 BUN 25 H (7-18) mg/dL Creatinine 1.7 H (0.6-1.3) mg/dL Est Cr Clr Drug Dosing 27.13 mL/min Estimated GFR (MDRD) 38 Glucose 194 H (74-105) mg/dL POC Glucose 127 H 164 H (83-110) mg/dl Calcium 9.1 (8.4-10.2) mg/dl Magnesium 2.2 (1.8-2.5) mg/dL 04/08/19 04/09/19 04/09/19 Range/Units 21:55 07:10 07:10 WBC 10.7 H (5.0-10.0) 10^3/uL RBC 4.86 (4.6-6.2) 10^6/uL Hgb 14.0 (14.0-18.0) g/dL Hct 44.8 (40.0-54.0) % MCV 92.2 (80-100) fL MCH 28.8 (27.0-34.0) pg MCHC 31.3 L (33.0-35.0) g/dL Plt Count 192 (150-450) 10^3/uL Neut % (Auto) 66.0 (42.2-75.2) % Lymph % (Auto) 22.2 (20.5-50.1) % [place] % (Auto) 9.1 H (2-8) % Eos % (Auto) 1.8 (1.0-3.0) % Baso % (Auto) 0.9 (0.0-1.0) % Add Manual Diff Yes Neutrophils % (Manual) 73 (42-75) % Band Neutrophils % 1 % Lymphocytes % (Manual) 20 (20-50) % Monocytes % (Manual) 6 (2-8) % Sodium 140 (135-145) mmol/L Potassium 4.4 (3.6-5.0) mmol/L Chloride 98 L (101-111) mmol/L Carbon Dioxide 32.0 H (21.0-31.0) mmol/L Anion Gap 14.4 BUN 29 H (7-18) mg/dL Creatinine 1.6 H (0.6-1.3) mg/dL Est Cr Clr Drug Dosing 28.83 mL/min Estimated GFR (MDRD) 41 Glucose 147 H (74-105) mg/dL POC Glucose 125 H (83-110) mg/dl Calcium 9.2 (8.4-10.2) mg/dl Magnesium (1.8-2.5) mg/dL 04/09/19 Range/Units 07:12 WBC (5.0-10.0) 10^3/uL RBC (4.6-6.2) 10^6/uL Hgb (14.0-18.0) g/dL Hct (40.0-54.0) % MCV (80-100) fL MCH (27.0-34.0) pg MCHC (33.0-35.0) g/dL Plt Count (150-450) 10^3/uL Neut % (Auto) (42.2-75.2) % Lymph % (Auto) (20.5-50.1) % [place]undy % (Auto) (2-8) % Eos % (Auto) (1.0-3.0) % Baso % (Auto) (0.0-1.0) % Add Manual Diff Neutrophils % (Manual) (42-75) % Band Neutrophils % % Lymphocytes % (Manual) (20-50) % Monocytes % (Manual) (2-8) % Sodium (135-145) mmol/L Potassium (3.6-5.0) mmol/L Chloride (101-111) mmol/L Carbon Dioxide (21.0-31.0) mmol/L Anion Gap BUN (7-18) mg/dL Creatinine (0.6-1.3) mg/dL Est Cr Clr Drug Dosing mL/min Estimated GFR (MDRD) Glucose (74-105) mg/dL POC Glucose 141 H (83-110) mg/dl Calcium (8.4-10.2) mg/dl Magnesium (1.8-2.5) mg/dL JESSICA Results - Last 24 hrs: Microbiology 04/05/19 15:34 Aerobic Blood Culture - Preliminary Blood - Venous NO GROWTH AFTER 3 DAYS Anaerobic Blood Culture - Preliminary NO GROWTH AFTER 3 DAYS 04/05/19 15:40 Aerobic Blood Culture - Preliminary Blood - Venous - Lab Draw NO GROWTH AFTER 3 DAYS Anaerobic Blood Culture - Preliminary NO GROWTH AFTER 3 DAYS 04/06/19 20:38 Gram Stain - Final Sputum - Expectorated Sputum Culture - Preliminary Yeast Isolated Med Orders - Current: Current Medications Acetaminophen (Tylenol) 650 mg PO Q4H PRN PRN Reason: Pain (Mild 1-3)/fever Last Admin: 10/16/19 18:16 Dose: 650 mg Albuterol (Proventil Neb Soln) 2.5 mg INH Q6HRRT PRN PRN Reason: Shortness of Breath Last Admin: 04/08/19 01:13 Dose: 2.5 mg Albuterol/Ipratropium (Duoneb 3.0-0.5 Mg/3 Ml) 3 ml NEB QIDRT [facility] Last Admin: 04/09/19 07:16 Dose: 3 ml Bisacodyl (Dulcolax) 5 mg PO DAILY PRN PRN Reason: Constipation Calcium Carbonate/Glycine (Tums) 1,000 mg PO Q8H PRN PRN Reason: Indigestion Last Admin: 04/08/19 10:19 Dose: 1,000 mg Clotrimazole (Lotrimin Af 1% Crm) 0 gm TOP BID PRN PRN Reason: Rash Docusate Sodium (Colace) 100 mg PO BID PRN PRN Reason: Constipation Last Admin: 04/08/19 10:18 Dose: 100 mg Famotidine (Pepcid) 20 mg PO BID PRN PRN Reason: Indigestion Last Admin: 04/08/19 10:19 Dose: 20 mg Ferrous Sulfate (Ferrous Sulfate) 325 mg PO TID@0800,1200,1700 [facility] Last Admin: 04/09/19 08:24 Dose: 325 mg Finasteride (Proscar) 5 mg PO DAILY [facility] Last Admin: 04/09/19 08:26 Dose: 5 mg Furosemide (Lasix) 40 mg IVPUSH TIDMEALS [facility] Last Admin: 04/09/19 08:29 Dose: 40 mg Guaifenesin (Mucus Relief) 200 mg PO TID [facility] Last Admin: 04/09/19 08:25 Dose: 200 mg Hydroxyzine HCl (Atarax) 25 mg PO Q8HR PRN PRN Reason: Anxiety Last Admin: 04/08/19 20:24 Dose: 25 mg Levofloxacin/Dextrose 750 mg/ (Premix) 150 mls @ 100 mls/hr IV Q48H [facility] Last Admin: 04/07/19 17:55 Dose: 100 mls/hr Sodium Chloride (Normal Saline) 500 mls @ 999 mls/hr IV ONETIME [facility] Last Admin: 04/06/19 11:40 Dose: 200 mls/hr Insulin Human Lispro (Humalog) 0 unit SUBCUT WITHMEALSANDBED [facility]; Protocol Last Admin: 04/09/19 08:31 Dose: Not Given Loratadine (Claritin) 10 mg PO DAILY [facility] Last Admin: 04/09/19 08:26 Dose: 10 mg Metformin HCl (Glucophage) 500 mg PO BIDMEALS [facility] Last Admin: 04/09/19 08:27 Dose: 500 mg Metoprolol Tartrate (Lopressor) 12.5 mg PO BID [facility] Last Admin: 04/09/19 08:32 Dose: Not Given Mometasone Furoate/Formoterol Fumar (Dulera 200-5 Mcg) 0 puff IH BID [facility] Last Admin: 04/09/19 08:29 Dose: 2 puff Multivitamins (Thera) 1 each PO DAILY [facility] Last Admin: 04/09/19 08:27 Dose: 1 each Apixaban [Eliquis] 5 (Mg *Own Med*) 5 mg PO BID [facility] Last Admin: 04/09/19 08:28 Dose: 5 mg Potassium Chloride (Klor-Con 10) 10 meq PO TIDMEALS [facility] Prednisone (Prednisone) 5 mg PO DAILY [facility] Last Admin: 04/09/19 08:27 Dose: 5 mg Simvastatin (Zocor) 10 mg PO BEDTIME [facility] Last Admin: 04/08/19 20:24 Dose: 10 mg Sodium Chloride (Saline Flush) 10 ml FLUSH ASDIRECTED PRN PRN Reason: Keep Vein Open Trazodone HCl (Trazodone) 25 mg PO BEDTIME PRN PRN Reason: Insomnia Last Admin: 04/08/19 20:24 Dose: 25 mg Zolpidem Tartrate (Ambien) 5 mg PO BEDTIME [facility] Last Admin: 04/08/19 20:24 Dose: 5 mg Discontinued Medications Acetaminophen (Tylenol) 325 mg PO Q6H PRN PRN Reason: Pain/Fever Albuterol/Ipratropium (Duoneb 3.0-0.5 Mg/3 Ml) 3 ml NEB ONETIME ONE Stop: 04/05/19 14:49 Last Admin: 04/05/19 14:56 Dose: 3 ml Budesonide (Pulmicort) 0.5 mg NEB BIDRT [facility] Last Admin: 04/06/19 10:30 Dose: Not Given Diltiazem HCl (Cardizem Cd) 180 mg PO DAILY [facility] Last Admin: 04/06/19 08:48 Dose: 180 mg Docusate Sodium/Benzocaine (Enemeez Plus Mini Enema) 1 each RECTAL ONETIME ONE Stop: 04/08/19 11:01 Last Admin: 04/08/19 12:35 Dose: 1 each Ferrous Sulfate (Ferrous Sulfate) 325 mg PO TIDAC [facility] Last Admin: 04/05/19 20:11 Dose: 325 mg Furosemide (Lasix) 40 mg IVPUSH BID@0900,2000 [facility] Last Admin: 04/05/19 19:29 Dose: 40 mg Furosemide (Lasix) 40 mg IVPUSH BID@0800,1400 [facility] Last Admin: 04/07/19 15:41 Dose: 40 mg Furosemide (Lasix) 60 mg IVPUSH TIDMEALS [facility] Last Admin: 04/08/19 17:35 Dose: Not Given Heparin Sodium (Porcine) (Heparin Sodium) 5,000 units SUBCUT Q12HR [facility] Levofloxacin/Dextrose 500 mg/ (Premix) 100 mls @ 100 mls/hr IV ONETIME ONE Stop: 04/05/19 17:41 Last Infusion: 04/05/19 18:12 Dose: Infused Potassium Chloride 10 meq/ (Premix) 100 mls @ 100 mls/hr IV Q2H [facility] Stop: 04/06/19 14:59 Last Admin: 04/06/19 13:24 Dose: 50 mls/hr Metolazone (Zaroxolyn) 1.25 mg PO DAILY [facility] Stop: 04/06/19 09:01 Last Admin: 04/06/19 10:38 Dose: 1.25 mg Metoprolol Tartrate (Lopressor) 12.5 mg PO BID [facility] Last Admin: 04/06/19 08:50 Dose: 12.5 mg Non-Formulary Medication (Olopatadine Hcl [Olopatadine Hcl]) 1 drop OP ASDIRECTED PRN PRN Reason: Itching Potassium Chloride (Klor-Con 10) 40 meq PO BEDTIME [facility] Last Admin: 04/07/19 20:12 Dose: 40 meq Potassium Chloride (Klor-Con 10) 20 meq PO ONETIME ONE Stop: 04/08/19 07:02 Last Admin: 04/08/19 08:43 Dose: 20 meq Potassium Chloride (Klor-Con 10) 20 meq PO TID [facility] Last Admin: 04/08/19 10:53 Dose: Not Given Potassium Chloride (Klor-Con 10) 20 meq PO TIDMEALS [facility] Last Admin: 04/08/19 17:33 Dose: 20 meq Quetiapine Fumarate (Seroquel) 12.5 mg PO ONETIME ONE Stop: 04/09/19 01:31 Last Admin: 04/09/19 01:43 Dose: 12.5 mg Sodium Chloride (Saline Flush) 10 ml FLUSH ASDIRECTED PRN PRN Reason: Keep Vein Open Last Admin: 04/05/19 17:12 Dose: 10 ml - Exam General: Reports: Alert, Oriented, Cooperative, No Acute Distress. Denies: Mild Distress, Moderate Distress, Severe Distress, Sedated, Lethargic, Obtunded HEENT: Reports: Pupils Equal, Pupils Reactive, EOMI, Mucous Membr. Moist/[place] Neck: Reports: Supple, Trachea Midline, No JVD Lungs: Reports: Normal Respiratory Effort, Decreased Breath Sounds (Mildly increase his, however improved from yesterday), Crackles (Markedly improved from yesterday). Denies: Rales, Rhonchi, Rub, Stridor, Wheezing Cardiovascular: Reports: Regular Rate, Regular Rhythm, No Murmurs GI/Abdominal Exam: Normal Bowel Sounds, Soft, Non-Tender, No Organomegaly, No Distention, No Mass (Male) Exam: Deferred Rectal (Males) Exam: Deferred Back Exam: Reports: Normal Inspection, Full Range of Motion. Denies: CVA Tenderness (L), CVA Tenderness (R) Extremities: Normal Inspection, Normal Range of Motion Skin: Reports: Warm, Dry, Intact Neurological: Reports: No New Focal Deficit Psy/Mental Status: Reports: Alert, Normal Affect, Normal Mood
== END 2019-04-09 11:00 | DRG 291 ==
LOC: DL.ED 14:03 → DL.MS 16:51 → DL.ED 17:00 → DL.MS 17:04 → UNDOADMIN 17:04
PROVIDERS: ADMIT Student in an Organized Health Care Education/Training Program; ATTEND Family Medicine
DX: J18.1 Lobar pneumonia, unspecified organism (principal); I11.0 Hypertensive heart disease with heart failure; I50.9 Heart failure, unspecified; J18.9 Pneumonia, unspecified organism; J44.9 Chronic obstructive pulmonary disease, unspecified; R06.02 Shortness of breath; N17.9 Acute kidney failure, unspecified; I50.33 Acute on chronic diastolic (congestive) heart failure; Z66 Do not resuscitate; E11.9 Type 2 diabetes mellitus without complications; I48.91 Unspecified atrial fibrillation; H91.90 Unspecified hearing loss, unspecified ear; E66.9 Obesity, unspecified; E87.5 Hyperkalemia; E87.6 Hypokalemia; B96.89 Other specified bacterial agents as the cause of diseases classified elsewhere; F41.9 Anxiety disorder, unspecified; Z91.041 Radiographic dye allergy status; Z79.84 Long term (current) use of oral hypoglycemic drugs; Z79.52 Long term (current) use of systemic steroids; Z79.899 Other long term (current) drug therapy; Z86.010 Personal history of colon polyps; Z85.820 Personal history of malignant melanoma of skin; Z98.49 Cataract extraction status, unspecified eye; Z68.30 Body mass index [BMI] 30.0-30.9, adult
CPT/HCPCS: 36415; 71045; 71046; 80048; 80053; 82962; 83605; 83735; 83880; 84100; 84484; 85025; 85610; 87040; 87070; 87205; 93005; 93306; 94010; 94640; 96374; 97162-GP; 97165-GO; 99284; 99285-25; A9270-GY; J1815; J1940; J1956; J3480; J7040; J7613-GY; J7620-GY